=== PATIENT | male | born 1960 | race Caucasian/White ===

== ENCOUNTER 2022-12-24 09:04 | Inpatient (IN) ==
--- NOTE | 2022-12-24 09:12 | Emergency Department Note ---
History of Present Illness General Stated complaint: AB PAIN, CHEST DISCOMFORT Time Seen by Provider: 12/24/22 09:10 History of Present Illness This 62 year old male patient presents to the emergency department via EMS from [] for evaluation of abdominal pain and chest discomfort. Home Medications Medication Instructions Recorded Confirmed Type amoxicillin 875 mg-potassium 1 tab PO BID #20 tabs 12/12/22 Rx clavulanate 125 mg tablet Past Med/Surg History Medical History (Updated 12/12/22 @ 15:06 by Mango Pardo DO) Diabetes Social History Smoking Status: Never smoker Preferred Language: Pakistani Feels Safe at Home: Yes Discharge Plan Visit Data Stated Complaint: AB PAIN, CHEST DISCOMFORT ED Provider: Gabo Cooper ED Midlevel Provider: Marilin Ramos Prescriptions Prescriptions: No Action amoxicillin-pot clavulanate 875-125 mg tablet 1 tab PO BID Qty: 20 0RF Referrals Referrals: Umesh Leavitt DO [Primary Care Provider] -
[2022-12-24] MEDS ORDERED: PANTOprazole 40 MG in SYRINGE 0 ML IV ONE (09:13)
[2022-12-24] MEDS ORDERED: FAMOTIDINE 20MG IV PUSH 20 MG/5 ML SYR IV STA (09:13)
--- NOTE | 2022-12-24 09:29 | Emergency Department Note ---
Impression & Plan Atrial flutter with rapid ventricular response, Abnormal EKG, Anemia, Acute GI bleeding ED Provider Note NAME: ALEX [id number] RODRIGUEZ AGE: 62 SEX: M : 1960 ARRIVES VIA: Ambulance INFORMANT: Patient, EMS personnel ED PROVIDER(S): Ryan Ramirez DO CHIEF COMPLAINT: Weakness HPI: The patient is a 62-year-old male who currently resides at the [facility] in [place] who presented to the emergency department for an evaluation of gen eralized weakness. The patient apparently is been having problems with constipation and bowel problems for the last few weeks. He has been in the [facility] for at least the last 7 days. He was seen at [facility] last week although it is unclear exactly why he was seen at that facility. The patient himself states he has no abdominal pain or chest pain. He denies having any recent trauma. He does complain of having issues with dark stool. He denies any rectal bleeding. He denies having any cough or hemoptysis. He denies having any fever. The patient was sent to the emergency department today when his symptoms worsened at the [facility]. He started having orthostatic hypotension and had an EKG which appeared to be consistent with an acute LA. For this reason he was sent to the emergency department for further evaluation. The patient denies having any history of atrial fibrillation. He states he feels that his medications are being rejected by his body and this is why he is feeling so bad. The patient's history was obtained using the modern and contemporary art curator line. Patient did receive IV normal saline and aspirin by the prehospital personnel prior to arrival. ROS: See above HPI for pertinent positives & negatives. A total of 10 systems reviewed and were otherwise negative. PAST MEDICAL HISTORY: See Below PAST SURGICAL HISTORY: See Below FAMILY HISTORY: See Below SOCIAL HISTORY: See Below HOME MEDICATIONS: See Below ALLERGIES: See Below VITALS: See Below PHYSICAL EXAMINATION: GENERAL: Patient is awake alert in no acute distress patient is resting comfortably and showing no signs of anxiety EYES: The conjunctivae are pale. The pupils are round and reactive. EARS, NOSE, MOUTH AND THROAT: The nose is without any evidence of any deformity. Mucous membranes are moist. Tongue is midline. NECK: The neck is nontender and supple. RESPIRATORY: Normal respiratory effort is noted there is no evidence of wheezing rhonchi or rales CARDIOVASCULAR: Tachycardic and regular heart sounds were noted to auscultation. There is no definite murmur. GASTROINTESTINAL: The abdomen is soft. Abdomen is nontender. Rectal exam revealed brown stool which was strongly heme positive. MUSCULOSKELETAL/EXTREMITIES: There is no evidence of gross deformity full range of motion is noted in the hips and shoulders. SKIN: Venous stasis changes were noted. There is no significant pedal edema. Skin was warm and dry. NEUROLOGIC: Patient is awake alert and oriented x3. MEDICAL DECISION MAKING: The patient is a 62-year-old male who presented to the emergency department for an evaluation of orthostatic hypotension. The patient's been in the infirmary at the [facility] for many days. Today he was complaining of other discomfort and had an EKG which was very abnormal. The patient was referred to the emergency department for further evaluation. The patient does not have a history of atrial flutter or atrial fibrillation to my knowledge. The patient was treated with IV fluids in the emergency department but started to have some degree of pulmonary edema. He was then placed on a Cardizem drip. Patient was having episodes of hypotension so it was difficult to manage his dysrhythmia. The patient initially was thought to be heart alert but given his other underlying findings I do not feel that this is consistent with an acute LA. He is at ongoing symptoms for greater than 24 hours and his troponin is negative. His EKG is suggestive of underlying ischemia but I think this could be rate related. He may also have a GI bleed. So blood thinners may be contraindicated at this time. The patient was evaluated by the [facility] hospitalist in the emergency department. I discussed the patient's condition with them. I also discussed the patient's condition with the religious education coordinator as well as the [facility] net wpf developer. The patient requires further efforts to control his rhythm. I feel this will help. He was also ordered IV digoxin in the emergency department. The patient was also treated with proton pump inhibitor and H2 jose alfredo given the presence of a GI bleed. Triage Nursing notes reviewed. Prior medical records reviewed. The old records from his visit at [facility] were ordered. Vital Signs: reviewed and remarkable for hypotension and tachycardia. Differential diagnosis: Infection, dehydration, metabolic abnormality, hypo/hyperglycemia, electrolyte disturbance, anemia, hypoxia, cardiac sources, intracerebral event, toxicologic, neurologic, as well as other pathologies. ER treatment provided: See below Diagnostics interpreted by me: ECG: EKG was obtained in the emergency department. My interpretation is narrow complex tachycardia at [address] segment elevations were noted especially in the inferior and low lateral leads. This appears to be consistent with an acute ischemic episode. The underlying rhythm could be SVT versus rapid A-fib. It could also represent atrial flutter. No previous tracing was available. Prehospital EKG was evaluated in the emergency department. My interpretation is narrow complex tachycardia 159 bpm. There is no PVCs noted. There was persistence of the ST segment elevations in the inferior and lateral leads. This appears worsened compared to the tracing he received in the emergency department. An EKG that was obtained at [facility] was also evaluated. My interpretation is narrow complex tachycardia at 158 bpm. There were no PVCs. Persistence of the previously noted ST segment elevation was also appreciated. An EKG was found after the patient's old records from [place] arrived. The patient was in normal sinus rhythm with no acute ST segment changes. He had no dysrhythmia noted. This was from an EKG on December 07, 2022 Cardiac Monitoring: An order was placed for continuous cardiac monitoring. The monitor shows a rate of 157 bpm with atrial flutter. Laboratory studies: As stated above and show below. Imaging studies: See below. Radiographic imaging was reviewed by myself Consultation(s): I discussed this case with Dr. Lemus who is on-call for interventional cardiol ogy was notified about the patient prior to his arrival. Given the unclear presentation as well as the patient's lack of any chest discomfort at this time I would prefer to do a work-up in the emergency department prior to having the patient taken to the [facility]. I discussed this case with Dr. Stephenson who is on-call for [facility] cardiology. I discussed this case with Dr. Roach who is on-call for the [facility] hospitalist group. ED COURSE: Procedures: none Critical Care: I have personally spent greater than 60 minutes of critical care time in the direct management of this patient. This includes bedside care, interpretation of diagnostic studies, and testing, discussion with consultants, patient, and family members, and other required patient management activities. This 60 minut es is in excess of all separately billable procedures. Past Med/Surg History Medical History (Updated 12/24/22 @ 11:40 by Ryan Ramirez DO) Diabetes Glaucoma Hyperlipidemia Hypertension Latent tuberculosis Social History Smoking Status: Never smoker Preferred Language: Romanian Communication Ability: applications support analyst Required: Yes Beliefs That Will Affect Care: Anabaptism Current Living Situation: Other Feels Safe at Home: Yes Assistive Devices: None Allergies Allergies Allergy/AdvReac Type Severity Reaction Status Date / Time No Known Allergies Allergy Unverified 12/24/22 13:36 Home Meds Previous Rx's Medication Instructions Recorded amoxicillin 875 mg-potassium 1 tab PO BID #20 tabs 12/12/22 clavulanate 125 mg tablet Results & Data (ED) Vital Signs Vital Signs - 24 hr 12/24/22 09:11 12/24/22 08:43 12/24/22 08:43 Pulse Rate 158 H 158 H 157 H Pulse Rate [Apical] Respiratory Rate 20 20 Respiratory Effort / Characteristics Non-Labored Spontaneous Respiratory Depth Normal Respiratory Pattern Regular Blood Pressure 122/83 Blood Pressure [Right Arm] Blood Pressure Mean 96 Blood Pressure Mean [Right Arm] Blood Pressure Position Sitting Blood Pressure Position [Right Arm] Pulse Oximetry 98 98 Oxygen Delivery Method Nasal Cannula Nasal Cannula Oxygen Flow Rate 2 2 Sepsis Recent Fever Within 48 Hours No Sepsis New/Unexplained Change in Mental Status N/A Sepsis Action Taken by Nursing No Action Required 12/24/22 09:13 12/24/22 09:40 12/24/22 09:43 Pulse Rate 157 H Pulse Rate [Apical] 74 157 H Respiratory Rate 20 18 18 Respiratory Effort / Characteristics Non-Labored Spontaneous Non-Labored Spontaneous Respiratory Depth Normal Normal Respiratory Pattern Regular Regular Blood Pressure Blood Pressure [Right Arm] 98/66 L 96/68 L Blood Pressure Mean Blood Pressure Mean [Right Arm] 76 77 Blood Pressure Position Blood Pressure Position [Right Arm] Sitting Sitting Pulse Oximetry 88 L 96 97 Oxygen Delivery Method Room Air Nasal Cannula Nasal Cannula Oxygen Flow Rate 2 2 Sepsis Recent Fever Within 48 Hours Sepsis New/Unexplained Change in Mental Status Sepsis Action Taken by Nursing 12/24/22 09:15 12/24/22 09:22 12/24/22 09:30 Pulse Rate 158 H 157 H 156 H Pulse Rate [Apical] Respiratory Rate 19 19 19 Respiratory Effort / Characteristics Respiratory Depth Respiratory Pattern Blood Pressure 88/60 L 122/83 98/66 L Blood Pressure [Right Arm] Blood Pressure Mean 69 96 76 Blood Pressure Mean [Right Arm] Blood Pressure Position Blood Pressure Position [Right Arm] Pulse Oximetry 97 97 97 Oxygen Delivery Method Nasal Cannula Nasal Cannula Nasal Cannula Oxygen Flow Rate 2 2 2 Sepsis Recent Fever Within 48 Hours Sepsis New/Unexplained Change in Mental Status Sepsis Action Taken by Nursing 12/24/22 09:44 12/24/22 09:45 12/24/22 10:07 Pulse Rate 157 H 156 H 155 H Pulse Rate [Apical] Respiratory Rate 17 16 18 Respiratory Effort / Characteristics Respiratory Depth Respiratory Pattern Blood Pressure 96/68 L 97/66 L 93/71 L Blood Pressure [Right Arm] Blood Pressure Mean 77 76 78 Blood Pressure Mean [Right Arm] Blood Pressure Position Blood Pressure Position [Right Arm] Pulse Oximetry 97 97 98 Oxygen Delivery Method Nasal Cannula Nasal Cannula Nasal Cannula Oxygen Flow Rate 2 2 2 Sepsis Recent Fever Within 48 Hours Sepsis New/Unexplained Change in Mental Status Sepsis Action Taken by Nursing 12/24/22 10:15 12/24/22 10:25 12/24/22 10:30 Pulse Rate 155 H 155 H 155 H Pulse Rate [Apical] Respiratory Rate 17 18 18 Respiratory Effort / Characteristics Respiratory Depth Respiratory Pattern Blood Pressure 94/66 L 90/62 L 96/62 L Blood Pressure [Right Arm] Blood Pressure Mean 75 71 73 Blood Pressure Mean [Right Arm] Blood Pressure Position Blood Pressure Position [Right Arm] Pulse Oximetry 99 100 100 Oxygen Delivery Method Nasal Cannula Nasal Cannula Nasal Cannula Oxygen Flow Rate 2 2 2 Sepsis Recent Fever Within 48 Hours Sepsis New/Unexplained Change in Mental Status Sepsis Action Taken by Nursing 12/24/22 10:35 Pulse Rate 154 H Pulse Rate [Apical] Respiratory Rate 18 Respiratory Effort / Characteristics Respiratory Depth Respiratory Pattern Blood Pressure 96/67 L Blood Pressure [Right Arm] Blood Pressure Mean 76 Blood Pressure Mean [Right Arm] Blood Pressure Position Blood Pressure Position [Right Arm] Pulse Oximetry 100 Oxygen Delivery Method Nasal Cannula Oxygen Flow Rate 2 Sepsis Recent Fever Within 48 Hours Sepsis New/Unexplained Change in Mental Status Sepsis Action Taken by Detention Medications Current Medication List: was personally reviewed by me Laboratory Data Attestation: I reviewed the patient's lab results. 12/24/22 09:12 12/24/22 09:12 Lab Results 12/24/22 12/24/22 12/24/22 Range/Units 09:12 09:12 09:12 WBC 8.26 (4.8-10.8) K/ul RBC 3.66 L (4.70-6.10) M/uL Hgb 10.0 L (14.0-18.0) g/dl POC Hgb (14.0-18.0) g/dl Hct 28.9 L (42.0-52.0) % POC Hct (42-52) % MCV 79.0 L (80.0-100.0) fL MCH 27.3 (25.0-34.0) pg MCHC 34.6 (32.0-36.0) g/dL RDW Std Deviation 32.9 L (36.4-46.3) fL RDW Coeff of Мария 11.4 L (11.5-14.5) % Plt Count 373 (130-400) K/uL MPV 9.8 (9.4-12.4) fL Immature Gran % (Auto) 0.2 % Neut % (Auto) 67.9 % Lymph % (Auto) 19.2 % [place] % (Auto) 11.6 % Eos % (Auto) 0.7 % Baso % (Auto) 0.4 % Neut # (Auto) 5.60 (1.40-6.50) K/uL Lymph # (Auto) 1.59 (1.2-3.4) K/uL [place] # (Auto) 0.96 H (0.11-0.59) K/uL Eos # (Auto) 0.06 (0-0.50) K/uL Baso # (Auto) 0.03 (0-0.2) K/uL Immature Gran # (Auto) 0.02 (0.01-0.20) K/uL PT Cancelled INR Cancelled APTT Cancelled PTT Ratio Cancelled POC Sodium (135-144) mmol/L Sodium 124 L (136-145) mmol/L POC Potassium (3.3-5.0) mmol/L Potassium 4.7 (3.5-5.1) mmol/L POC Chloride (101-112) mmol/L Chloride 91 L (98-107) mmol/L Carbon Dioxide 27 (21-32) mmol/L POC Total CO2 (24-31) mmol/L Anion Gap 6 (3-11) POC Anion Gap (16-25) mmol/L POC BUN (7-18) mg/dl BUN 27 H (6-23) mg/dl Creatinine 1.39 (0.6-1.4) mg/dl POC Creatinine (0.6-1.3) mg/dl Est Cr Clr Drug Dosing Not Reportable Est GFR ( Amer) 62.9 ml/min Est GFR (Non-Af Amer) 54.3 ml/min BUN/Creatinine Ratio 19.4 (10-20) Glucose 105 H (70-99(Fasting)) mg/dl POC Glucose (other) (70-99) mg/dl Osmolality (280-300) mOsm/kg Lactate (0.4-2.0) mmol/L Calcium 9.0 (8.5-10.1) mg/dl POC Ioniz Calcium [place] (1.12-1.32) mmol/l Magnesium 1.9 (1.7-2.4) mg/dl Total Bilirubin 0.7 (0.2-1.0) mg/dl AST 16 (13-39) U/L ALT 16 (7-52) U/L Alkaline Phosphatase 99 (34-104) U/L Troponin I High Sens 19.8 (0-20) pg/ml Total Protein 7.2 (6.0-8.3) gm/dl Albumin 3.4 (3.4-5.0) gm/dl Globulin 3.8 (2.5-4.0) gm/dl Albumin/Globulin Ratio 0.9 (0.9-2) Lipase 8 L (11-82) U/L TSH (0.300-4.500) uIu/ml SARS-CoV-2, RNA, NAAT (NEGATIVE) Blood Type Antibody Screen 12/24/22 12/24/22 12/24/22 Range/Units 09:12 09:12 09:12 WBC (4.8-10.8) K/ul RBC (4.70-6.10) M/uL Hgb (14.0-18.0) g/dl POC Hgb (14.0-18.0) g/dl Hct (42.0-52.0) % POC Hct (42-52) % MCV (80.0-100.0) fL MCH (25.0-34.0) pg MCHC (32.0-36.0) g/dL RDW Std Deviation (36.4-46.3) fL RDW Coeff of Мария (11.5-14.5) % Plt Count (130-400) K/uL MPV (9.4-12.4) fL Immature Gran % (Auto) % Neut % (Auto) % Lymph % (Auto) % [place] % (Auto) % Eos % (Auto) % Baso % (Auto) % Neut # (Auto) (1.40-6.50) K/uL Lymph # (Auto) (1.2-3.4) K/uL [place] # (Auto) (0.11-0.59) K/uL Eos # (Auto) (0-0.50) K/uL Baso # (Auto) (0-0.2) K/uL Immature Gran # (Auto) (0.01-0.20) K/uL PT INR APTT PTT Ratio POC Sodium (135-144) mmol/L Sodium (136-145) mmol/L POC Potassium (3.3-5.0) mmol/L Potassium (3.5-5.1) mmol/L POC Chloride (101-112) mmol/L Chloride (98-107) mmol/L Carbon Dioxide (21-32) mmol/L POC Total CO2 (24-31) mmol/L Anion Gap (3-11) POC Anion Gap (16-25) mmol/L POC BUN (7-18) mg/dl BUN (6-23) mg/dl Creatinine (0.6-1.4) mg/dl POC Creatinine (0.6-1.3) mg/dl Est Cr Clr Drug Dosing Est GFR ( Amer) ml/min Est GFR (Non-Af Amer) ml/min BUN/Creatinine Ratio (10-20) Glucose (70-99(Fasting)) mg/dl POC Glucose (other) (70-99) mg/dl Osmolality 269 L (280-300) mOsm/kg Lactate (0.4-2.0) mmol/L Calcium (8.5-10.1) mg/dl POC Ioniz Calcium [place] (1.12-1.32) mmol/l Magnesium (1.7-2.4) mg/dl Total Bilirubin (0.2-1.0) mg/dl AST (13-39) U/L ALT (7-52) U/L Alkaline Phosphatase (34-104) U/L Troponin I High Sens (0-20) pg/ml Total Protein (6.0-8.3) gm/dl Albumin (3.4-5.0) gm/dl Globulin (2.5-4.0) gm/dl Albumin/Globulin Ratio (0.9-2) Lipase (11-82) U/L TSH 1.990 (0.300-4.500) uIu/ml SARS-CoV-2, RNA, NAAT NEGATIVE (NEGATIVE) Blood Type Antibody Screen 12/24/22 12/24/22 12/24/22 Range/Units 09:27 09:27 09:30 WBC (4.8-10.8) K/ul RBC (4.70-6.10) M/uL Hgb (14.0-18.0) g/dl POC Hgb 9.5 L (14.0-18.0) g/dl Hct (42.0-52.0) % POC Hct 28 L (42-52) % MCV (80.0-100.0) fL MCH (25.0-34.0) pg MCHC (32.0-36.0) g/dL RDW Std Deviation (36.4-46.3) fL RDW Coeff of Мария (11.5-14.5) % Plt Count (130-400) K/uL MPV (9.4-12.4) fL Immature Gran % (Auto) % Neut % (Auto) % Lymph % (Auto) % [place] % (Auto) % Eos % (Auto) % Baso % (Auto) % Neut # (Auto) (1.40-6.50) K/uL Lymph # (Auto) (1.2-3.4) K/uL [place] # (Auto) (0.11-0.59) K/uL Eos # (Auto) (0-0.50) K/uL Baso # (Auto) (0-0.2) K/uL Immature Gran # (Auto) (0.01-0.20) K/uL PT INR APTT PTT Ratio POC Sodium 139 (135-144) mmol/L Sodium (136-145) mmol/L POC Potassium 4.3 (3.3-5.0) mmol/L Potassium (3.5-5.1) mmol/L POC Chloride 92 L (101-112) mmol/L Chloride (98-107) mmol/L Carbon Dioxide (21-32) mmol/L POC Total CO2 23 L (24-31) mmol/L Anion Gap (3-11) POC Anion Gap 29.0 H (16-25) mmol/L POC BUN 23 H (7-18) mg/dl BUN (6-23) mg/dl Creatinine (0.6-1.4) mg/dl POC Creatinine 1.4 H (0.6-1.3) mg/dl Est Cr Clr Drug Dosing Est GFR ( Amer) ml/min Est GFR (Non-Af Amer) ml/min BUN/Creatinine Ratio (10-20) Glucose (70-99(Fasting)) mg/dl POC Glucose (other) 93 (70-99) mg/dl Osmolality (280-300) mOsm/kg Lactate 1.0 (0.4-2.0) mmol/L Calcium (8.5-10.1) mg/dl POC Ioniz Calcium [place] 1.07 L (1.12-1.32) mmol/l Magnesium (1.7-2.4) mg/dl Total Bilirubin (0.2-1.0) mg/dl AST (13-39) U/L ALT (7-52) U/L Alkaline Phosphatase (34-104) U/L Troponin I High Sens (0-20) pg/ml Total Protein (6.0-8.3) gm/dl Albumin (3.4-5.0) gm/dl Globulin (2.5-4.0) gm/dl Albumin/Globulin Ratio (0.9-2) Lipase (11-82) U/L TSH (0.300-4.500) uIu/ml SARS-CoV-2, RNA, NAAT (NEGATIVE) Blood Type O Positive Antibody Screen NEGATIVE Administered Medications Diltiazem HCl 125 mg/ Dextrose 125 mls @ 15 mls/hr IV .Q8H20M [facility]; Protocol Stop: 01/23/23 09:44 Last Titration: 12/24/22 12:07 Dose: 15 mg/hr, 15 mls/hr Documented By: GREGG Co-signed By: GUERO Titration: 02/13/23 11:45 Dose: 10 mg/hr, 10 mls/hr Documented By: GREGG Co-signed By: DAA Titration: 12/24/22 10:33 Dose: 5 mg/hr, 5 mls/hr Documented By: PATTY Co-signed By: SEA Titration: 12/24/22 10:26 Dose: 0 mg/hr, 0 mls/hr Documented By: PATTY Co-signed By: SEA Titration: 12/24/22 10:20 Dose: 10 mg/hr, 10 mls/hr Documented By: PATTY Co-signed By: NMS Admin: 12/24/22 09:49 Dose: 5 mg/hr, 5 mls/hr Documented By: PATTY Co-signed By: SEA Insulin Aspart (Insulin Aspart Per Unit) 0 units SC ACHS ZULEMA Stop: 01/23/23 11:40 Last Admin: 12/24/22 11:52 Dose: Not Given Documented By: GREGG Discontinued Medications Adenosine (Adenosine Iv Soln 3 Mg/Ml 2 Ml Vial) 6 mg IV NOW STA Stop: 12/24/22 09:33 Last Admin: 12/24/22 09:39 Dose: 6 mg Documented By: PATTY Pantoprazole Sodium 40 mg/ (Syringe) 10 mls @ 5 mls/min IV NOW ONE Stop: 12/24/22 09:14 Last Admin: 12/24/22 09:36 Dose: 5 mls/min Documented By: PATTY Famotidine (Pepcid 20mg Iv Push) 20 mg in 5 mls @ 2.5 mls/min IV NOW STA Stop: 12/24/22 09:14 Last Admin: 12/24/22 09:21 Dose: 2.5 mls/min Documented By: PATTY Sodium Chloride (Nss 1000ml) 500 mls @ 999 mls/hr IV .Q31M ONE Stop: 12/24/22 10:02 Last Infusion: 12/24/22 10:14 Dose: 0 mls/hr Documented By: Admin: 12/24/22 09:36 Dose: 999 mls/hr Documented By: PATTY Sodium Chloride (Nss) 500 mls @ 999 mls/hr IV .Q31M ONE Stop: 12/24/22 10:44 Last Infusion: 12/24/22 10:59 Dose: 0 mls/hr Documented By: Admin: 12/24/22 10:21 Dose: 999 mls/hr Documented By: PATTY Digoxin 250 mcg/ Syringe 10 mls @ 2 mls/min IV NOW STA Stop: 12/24/22 10:38 Last Admin: 12/24/22 11:20 Dose: 2 mls/min Documented By: KORY Magnesium Sulfate/Dextrose (Magnesium Sulfate / D5w) 1 gm in 100 mls @ 100 mls/hr IV NOW STA Stop: 12/24/22 11:38 Last Infusion: 12/24/22 13:00 Dose: 0 mls/hr Documented By: Admin: 12/24/22 11:49 Dose: 100 mls/hr Documented By: GREGG Lactated Ringer's (Lr) 1,000 mls @ 999 mls/hr IV .Q1H1M ONE Stop: 12/24/22 12:10 Last Infusion: 12/24/22 12:27 Dose: 0 mls/hr Documented By: Admin: 12/24/22 11:20 Dose: 999 mls/hr Documented By: KORY Miscellaneous (Stat Iv Infusion Titration Per Protocol) 1 each N/A NOW STA Stop: 12/24/22 09:42 Last Admin: 12/24/22 09:50 Dose: Not Given Documented By: PATTY Imaging Data Radiologist's Impression: KUB X-Ray 12/24/22 09:13 KUB HISTORY: Acute generalized abdominal pain pain COMPARISON: Chest radiograph of same day FINDINGS: Nonobstructive bowel gas pattern. Mild colonic fecal retention. Renal shadows are obscured by bowel gas. Arterial calcifications. No renal calculi. No ureteral calculi. No pneumoperitoneum or pneumatosis. No fracture. IMPRESSION: Nonobstructive bowel gas pattern. ACT 112: Negative or not required by law. The above report was generated using voice recognition software. It may contain grammatical, syntax or spelling errors. Electronically signed by: Sanjiv Pitts M.D. 12/24/2022 10:17 AM Chest X-Ray 12/24/22 09:14 XR chest 1V not portable CLINICAL HISTORY: pain TECHNIQUE: Single frontal radiograph of the chest was obtained. Comparison: None available at the time of this dictation. FINDINGS: No lines and tubes are seen. Cardiomegaly is noted. The lungs are clear. No evidence of pleural effusion or pneumothorax. IMPRESSION: No acute chest disease. ACT 112: Negative or not required by law. Electronically signed by: Abdi Cobb M.D. 12/24/2022 10:15 AM Discharge Plan Visit Data Chief Complaint: Abdominal Pain Stated Complaint: AB PAIN, CHEST DISCOMFORT ED Provider: Ryan Ramirez Discharge Problem: Atrial flutter with rapid ventricular response, Abnormal EKG, Anemia, Acute GI bleeding Patient Disposition: Admitted As Inpatient Discharge Instructions Interventions: ED Discharge Assessment Last Done: 12/24/22 11:40 : Anemia Qualifiers: Anemia type: unspecified type Qualified Code(s): D64.9 - Anemia, unspecified
[2022-12-24 09:30] LABS: Basophils # (auto) 0.03 K/uL (0-0.2); Basophils % (auto) 0.4 %; Eosinophils # (auto) 0.06 K/uL (0-0.50); Eosinophils % (auto) 0.7 %; Hematocrit (blood only) 28.9 % (42.0-52.0); Immature Granulocytes # (auto) 0.02 K/uL (0.01-0.20); Immature Granulocytes % (auto) 0.2 %; Lymphocytes # (auto) 1.59 K/uL (1.2-3.4); Lymphocytes % (auto) 19.2 %; Mean Corpuscular Hemoglobin 27.3 pg (25.0-34.0); Mean Corpuscular Hgb Conc 34.6 g/dL (32.0-36.0); Mean Platelet Volume 9.8 fL (9.4-12.4); Monocytes # (auto) 0.96 K/uL (0.11-0.59); Monocytes % (auto) 11.6 %; Neutrophils % (auto) 67.9 %; Platelet Count 373 K/uL (130-400); RDW Coefficient of Variation 11.4 % (11.5-14.5); RDW Standard Deviation 32.9 fL (36.4-46.3); Red Blood Count 3.66 M/uL (4.70-6.10); White Blood Count 8.26 K/ul (4.8-10.8)
[2022-12-24] MEDS ORDERED: ADENOSINE IV SOLN 3 MG/ML 2 ML VIAL IV STA (09:32)
[2022-12-24] MEDS ORDERED: SODIUM CHLORIDE 0.9% 1000ML 500 ML IV ONE (09:32)
[2022-12-24] MEDS ORDERED: STAT IV Infusion **Titration per Protocol STA (09:41)
[2022-12-24 09:43] LABS: iSTAT Creatinine 1.4 mg/dl (0.6-1.3); iSTAT Hemoglobin 9.5 g/dl (14.0-18.0); iSTAT Ionized Calcium 1.07 mmol/l (1.12-1.32); iSTAT Potassium 4.3 mmol/L (3.3-5.0)
[2022-12-24 09:47] LABS: Alanine Aminotransferase 16 U/L (7-52); Albumin Globulin Ratio 0.9 (0.9-2); Albumin Level 3.4 gm/dl (3.4-5.0); Alkaline Phosphatase 99 U/L (34-104); Anion Gap 6 (3-11); Aspartate Aminotransferase 16 U/L (13-39); BUN Creatinine Ratio 19.4 (10-20); Bilirubin,Total 0.7 mg/dl (0.2-1.0); Blood Urea Nitrogen 27 mg/dl (6-23); Carbon Dioxide 27 mmol/L (21-32); Chloride 91 mmol/L (98-107); Est GFR (African American) 62.9 ml/min; Est GFR (Non-African American) 54.3 ml/min; Globulin 3.8 gm/dl (2.5-4.0); Glucose 105 mg/dl (70-99(Fasting)); Lipase 8 U/L (11-82); Magnesium 1.9 mg/dl (1.7-2.4); Potassium 4.7 mmol/L (3.5-5.1); Sodium 124 mmol/L (136-145); Total Protein 7.2 gm/dl (6.0-8.3)
[2022-12-24] MEDS: dilTIAZem HCL 125 MG in DEXTROSE 5% 100 ML IV SCH ×2 (09:49→19:39)
[2022-12-24 09:53] LABS: Troponin I High Sensitivity 19.8 pg/ml (0-20)
[2022-12-24] MEDS ORDERED: SODIUM CHLORIDE 0.9% 500 ML IV ONE (10:14)
--- NOTE | 2022-12-24 10:17 | XRay Report ---
XR chest 1V not portable CLINICAL HISTORY: pain TECHNIQUE: Single frontal radiograph of the chest was obtained. Comparison: None available at the time of this dictation. FINDINGS: No lines and tubes are seen. Cardiomegaly is noted. The lungs are clear. No evidence of pleural effus ion or pneumothorax. IMPRESSION: No acute chest disease. ACT 112: Negative or not required by law. Electronically signed by: Abdi Cobb M.D. 12/24/2022 10:15 AM
--- NOTE | 2022-12-24 10:18 | XRay Report ---
KUB HISTORY: Acute generalized abdominal pain pain COMPARISON: Chest radiograph of same day FINDINGS: Nonobstructive bowel gas pattern. Mild colonic fecal retention. Renal shadows are obscured by bowel gas. Arterial calcifications. No renal calculi. No ureteral calculi. No pneumoperitoneum or pneumatosis. No fracture. IMPRESSION: Nonobstructive bowel gas pattern. ACT 112: Negative or not required by law. The above report was generated using voice recognition software. It may contain grammatical, syntax o r spelling errors. Electronically signed by: Sanjiv Pitts M.D. 12/24/2022 10:17 AM
--- NOTE | 2022-12-24 10:24 | History & Physical Report ---
Date of Service December 24, 2022 Assessment & Plan (1) Atrial flutter with rapid ventricular response: Plan: Clear flutter waves after adenosine push Does not appear to be in heart failure from this Diltiazem 10mg/hr caused mild hypotension although volume status not fully supported after only Will add digoxin 250 mcg IV and up titrate diltiazem prior to switching to rhythm control with amiodarone as BP only dropping while on diltiazem with inadequate fluid resuscitation Additional LR 1L bolus now K > 4 Mg 1.9. Mg sulfate 1g IV ordered Keep cardioversion pads in placed in case of need of synchronized cardioversion TSH 1.99 TTE [id number], will defer heparin IV drip on admission due to possibility of acute GI bleed consult cardiology (2) Abnormal EKG: Plan: No chest pain or shortness of breath to suggest ACS (3) Microcytic anemia: Plan: Fecal occult blood positive in the emergency room Famotidine IV 20 mg and pantoprazole IV 40 mg given in the emergency room Continue pantoprazole 40 mg IV twice daily We will consult gastroenterology depending on clinical course (4) Dysphagia: Plan: With solid foods Recommend EGD inpatient or outpatient depending on clinical course (5) Diabetes: Plan: HbA1c with a.m. labs Unclear exact insulin dosing but appears to be on 12 units twice daily NovoLog: --Goal BSG Range: Low 110 mg/dL, High 140 mg/dL --Correction Factor: 45 mg/dL/unit --Carbohydrate ratio = 15 g/unit --BSGs ACHS if eating, q6h if npo (6) Hypertension: Plan: Stop lisinopril. Reportedly not taking this for the last week due to low blood pressure - ? GI bleed Plan VTE Prophylaxis - chemical prophylaxis deferred due to possible acute GI bleed Diet - n.p.o. Disposition - admit to PCU Admission and Anticipated Discharge Date Admission Date: December 24, 2022 History of Present Illness Chief Complaint: Dizziness Primary Care Provider: DO Jamie Hodge is a 62-year-old male who presents to the ER with abdominal pain and possible acute ME. History and exam was performed with the use of an chlorine cells operator via iPad ([employer]). The patient reports to me his abdominal pain is really "colon" pain which he describes as when he has a bowel movement it is around his rectum and he believes this is from straining as he has not had a bowel movement for the last 5 days. He denies any nausea, vomiting, anterior abdominal pain, flank pain, bright red blood in stool, hematemesis. He does report black stool which was heme positive in the emergency room. He does note dysphagia although over an unclear time span with solids at the back of his throat but no problem with liquids. He denies any coughing or choking after eating. He reports having dizziness for many years although this is much worse in the last 3 weeks mainly on standing, but occasionally while lying down. He reports this was much worse today. He believes when he transferred presents his medication was coming from a different pharmacy and he is concerned about this. Outpatient EKG was obtained and concerning for atrial fibrillation/SVT or atrial flutter and meeting acute ST elevation criteria. Heart rate 150 bpm. He was given aspirin 324 mg p.o. at 8:10 AM and 700 mL bolus of normal saline prehospital. In the emergency room EKG confirmed a narrow complex tachycardia at 159 bpm. He was given adenosine 6 mg IV which showed underlying flutter waves and his heart rate immediately went back to around [address] arted on a diltiazem drip which caused mild hypotension and he is currently receiving a second 500 mL normal saline bolus when seen. He denies any current dizziness while lying down. No chest pain or shortness of breath. No current abdominal pain. He reports only having symptoms when he would sit or stand. Allergies Allergy/AdvReac Type Severity Reaction Status Date / Time No Known Allergies Allergy Unverified 12/24/22 13:36 Home Medications Medication Instructions Recorded Confirmed Type amoxicillin 875 mg-potassium 1 tab PO BID #20 tabs 12/12/22 Rx clavulanate 125 mg tablet Past Med/Surg History Medical History Diabetes Glaucoma Hyperlipidemia Hypertension Latent tuberculosis Social History Smoking Status: Never smoker Preferred Language: Greek Communication Ability: latvian Communication Tools: IPad and Language Line Director Quality Assurance Director Quality Assurance Required: Yes Beliefs That Will Affect Care: Lutheran Current Living Situation: Other Feels Safe at Home: Yes Assistive Devices: None Review of Systems Review of Systems: All systems reviewed & are unremarkable except as noted in HPI & below Physical Exam Constitutional: WD/WN, vitals as above Eyes: PERRL, conjunctivae normal, anicteric sclerae EOM intact bilaterally Respiratory: normal respiratory effort, lungs clear to auscultation Cardiovascular: Rate/Rhythm: regular rhythm and + tachycardic Heart Sounds: no murmur Extremities: normal capillary refill; no calf tenderness and no pedal edema Gastrointestinal (Abdomen): normal bowel sounds, soft, nontender, no hepatosplenomegaly Musculoskeletal: no cyanosis or clubbing, extremities motor strength 5/5 Skin: no rashes, warm and dry Neurologic: moves all extremities and awake; not confused Psychiatric: A+Ox3, euthymic affect Genitourinary: no CVA tenderness Results & Data Results & Data ([facility]) Vital Signs (Past 12 Hours) Vital Signs Pulse Pulse Resp BP BP Pulse Ox O2 Del Method 12/24/22 10:07 155 H 18 93/71 L 98 Nasal Cannula 12/24/22 09:45 156 H 16 97/66 L 97 Nasal Cannula 12/24/22 09:44 157 H 17 96/68 L 97 Nasal Cannula 12/24/22 09:30 156 H 19 98/66 L 97 Nasal Cannula 12/24/22 09:22 157 H 19 122/83 97 Nasal Cannula 12/24/22 09:15 158 H 19 88/60 L 97 Nasal Cannula 12/24/22 09:43 157 H 18 96/68 L 97 Nasal Cannula 12/24/22 09:40 74 18 98/66 L 96 Nasal Cannula 12/24/22 09:13 157 H 20 88 L Room Air 12/24/22 08:43 157 H 20 98 Nasal Cannula 12/24/22 08:43 158 H 20 122/83 98 Nasal Cannula 12/24/22 09:11 158 H O2 Flow Rate 12/24/22 10:07 2 12/24/22 09:45 2 12/24/22 09:44 2 12/24/22 09:30 2 12/24/22 09:22 2 12/24/22 09:15 2 12/24/22 09:43 2 12/24/22 09:40 2 12/24/22 09:13 12/24/22 08:43 2 12/24/22 08:43 2 12/24/22 09:11 Laboratory Results Abnormal lab results 12/24/22 12/24/22 12/24/22 Range/Units 09:12 09:12 09:30 RBC 3.66 L (4.70-6.10) M/uL Hgb 10.0 L (14.0-18.0) g/dl POC Hgb 9.5 L (14.0-18.0) g/dl Hct 28.9 L (42.0-52.0) % POC Hct 28 L (42-52) % MCV 79.0 L (80.0-100.0) fL RDW Std Deviation 32.9 L (36.4-46.3) fL RDW Coeff of Мария 11.4 L (11.5-14.5) % [place] # (Auto) 0.96 H (0.11-0.59) K/uL Sodium 124 L (136-145) mmol/L POC Chloride 92 L (101-112) mmol/L Chloride 91 L (98-107) mmol/L POC Total CO2 23 L (24-31) mmol/L POC Anion Gap 29.0 H (16-25) mmol/L POC BUN 23 H (7-18) mg/dl BUN 27 H (6-23) mg/dl POC Creatinine 1.4 H (0.6-1.3) mg/dl Glucose 105 H (70-99(Fasting)) mg/dl POC Ioniz Calcium [place] 1.07 L (1.12-1.32) mmol/l Lipase 8 L (11-82) U/L Diagnostic Findings XR chest 1V not portable CLINICAL HISTORY: pain TECHNIQUE: Single frontal radiograph of the chest was obtained. Comparison: None available at the time of this dictation. FINDINGS: No lines and tubes are seen. Cardiomegaly is noted. The lungs are clear. No evidence of pleural effusion or pneumothorax. IMPRESSION: No acute chest disease. Medications Administered ER medications given: Pantoprazole 40 mg IV Famotidine 20 mg IV Adenosine 6 mg IV Normal saline 500 mL bolus Normal saline 500 mL bolus ECG Indication: abdominal pain Rate (beats per minute): 159 Rhythm: other (Narrow complex regular tachycardia) Findings: + ST elevation (Inferior lateral) Code Status & VTE Plan Code Status Full VTE Prophylaxis Plan VTE Prophylaxis will be ordered: No Critical Care Time Critical Care Time: Yes Total Critical Care Time: 35 PG Care Time/CCT Total # of Minutes Spent Total Time Spent with Patient: Total time spent is greater than 50% in coordination of care (as documented) at patient's floor/unit and/or counseling patient: Critical Care Time: Yes Total Critical Care Time: 35 Coding Level of Care Code 03094 INT INP/OBS CARE 3/75MIN Diagnoses Atrial flutter with rapid ventricular response I48.92 Abnormal EKG R94.31 Microcytic anemia D50.9 Dysphagia R13.10 Diabetes E11.9 Hypertension I10 Additional Codes Critical Care Time - Critical Care Time: Yes ([id number])
[2022-12-24] MEDS ORDERED: DIGOXIN 250 MCG in SYRINGE 9 ML IV STA (10:34)
[2022-12-24] MEDS ORDERED: MAGNESIUM SULFATE / D5W 1 GM/100 ML BAG IV STA (10:39)
[2022-12-24] MEDS ORDERED: LACTATED RINGER'S 1,000 ML IV ONE (11:10)
[2022-12-24] MEDS ORDERED: GLUCOSE 10 TAB/TUBE PO PRN (11:41)
[2022-12-24] MEDS ORDERED: GLUCAGON FOR INJ 1 MG VIAL SQ PRN (11:41)
[2022-12-24] MEDS ORDERED: ACETAMINOPHEN 325 MG TAB PO PRN (11:41)
[2022-12-24] MEDS ORDERED: GLUCOSE 40% GEL 15 GM TUBE PO PRN (11:41)
[2022-12-24] MEDS ORDERED: DEXTROSE 50% 50 ML SYRINGE IV PRN (11:41)
[2022-12-24] MEDS: INSULIN ASPART PER UNIT SC SCH ×3 (11:52→21:24)
[2022-12-24 11:59] LABS: BUN Creatinine Ratio 20.7 (10-20); Calcium 8.1 mg/dl (8.5-10.1); Creatinine Clr Calc Pharmacy 66.4 ml/min; Est GFR (African American) 74.4 ml/min; Est GFR (Non-African American) 64.2 ml/min; Potassium 4.7 mmol/L (3.5-5.1)
[2022-12-24 12:05] LABS: Troponin I High Sensitivity 17.3 pg/ml (0-20)
[2022-12-24 12:13] LABS: INR 1.2 (0.9-1.1); Partial Thromboplastin Ratio 1.3; Prothrombin Time 12.7 Seconds (9.0-12.0)
[2022-12-24] MEDS ORDERED: SODIUM CHLORIDE 0.9% 1000ML 1,000 ML IV SCH (13:30)
[2022-12-24 17:35] LABS: Appearance Urine Clear (Clear); Bacteria Urine Automated Negative (Negative); Bilirubin Urine Negative (Negative); Blood Urine Negative (Negative); Color Urine Yellow; Epithelial Cell Urine Auto 0-5 /lpf (0-5); Glucose Urine UA 2+ (Negative); Ketones Urine Negative (Negative); Leukocyte Esterase Urine Negative (Negative); Nitrite Urine Negative (Negative); Protein Urine Trace (Negative); RBC Urine Automated 0-4 /hpf (0-4); Specific Gravity Urine 1.011 (1.000-1.030); Urobilinogen Urine Negative (Negative); pH Urine 5.5 (4.5-7.5)
[2022-12-24 17:50] LABS: Hemoglobin 9.2 g/dl (14.0-18.0); Mean Corpuscular Hemoglobin 27.2 pg (25.0-34.0); Mean Corpuscular Hgb Conc 34.1 g/dL (32.0-36.0); Mean Corpuscular Volume 79.9 fL (80.0-100.0); Mean Platelet Volume 9.9 fL (9.4-12.4); Platelet Count 356 K/uL (130-400); RDW Coefficient of Variation 11.5 % (11.5-14.5); RDW Standard Deviation 33.4 fL (36.4-46.3); Red Blood Count 3.38 M/uL (4.70-6.10); Reticulocyte % 1.5 % (0.5-2.0); Reticulocytes # 0.05 10^6/uL (0.02-0.10); White Blood Count 8.15 K/ul (4.8-10.8)
--- NOTE | 2022-12-24 17:54 | Cardiology Consultation ---
Date of Consultation December 24, 2022 Assessment & Plan (1) Atrial flutter with rapid ventricular response: (2) Pericardial effusion: (3) Hypotension: (4) Anemia: (5) Acute GI bleeding: (6) Dysphagia: Plan ASSESSMENT/PLAN: 1. Atrial flutter with rapid ventricular response: Discussed the diagnosis with him. Ideally would like to regain sinus rhythm but unable to anticoagulate now per primary service given heme-positive stool and anemia. Heart rate appeared to respond nicely to digoxin after not initially improving with diltiazem. Had more hypotension with diltiazem. IV fluids likely improved heart rate as well as he may have been hypovolemic given his reduced overall oral consumption given dysphagia. Will re-dose digoxin for further loading today. Can reduce diltiazem drip as able to allow for improved blood pressure. Recommend anticoagulation therapy when safe for possible cardioversion in the future. No ROSSI at this point given dysphagia and GI bleed, unless endoscopy performed and unremarkable. 2. Pericardial effusion: Discussed the diagnosis with him. No obvious tamponade physiology when reviewing echo. No urgent need for pericardiocentesis. Will continue to monitor and will repeat echo in the near future. Etiology uncertain. 3. Dysphagia: Has poor appetite and difficulty swallowing and was likely hypovolemic on presentation. Recommend further evaluation such as CT imaging or endoscopy as per primary hospitalist service. Consider GI consult. 4. Anemia/GI bleed: Heme-positive stool per records and ED physician. Recommend GI consult as ideally he should be on anticoagulation for stroke risk reduction when safe from a GI perspective. Also, to help regain sinus rhythm, transesophageal echo could be considered for cardioversion but given his GI complaints of dysphagia with heme-positive black stool, would want to ensure no significant esophageal pathology. 5. Hypotension: Likely multifactorial in the setting of probable hypokalemia, significant tachycardia in the setting of atrial flutter, and intravenous diltiazem. Blood pressure has improved. Diltiazem has been weaned somewhat and he has received intravenous fluids. 6. Disposition: Cardiology will continue to follow. Patient care discussed with Dr. Ramirez of the emergency department and also Dr. Roach of the primary hospitalist service. Care also discussed with nursing staff. Highly complex medical issues for which transesophageal echo and cardioversion were considered. Thank you for allowing me to participate in the care of your patient. Please call for any other questions or concerns. Sincerely, David Stephenson M.D. History of Present Illness Reason for Consultation: Atrial flutter Requesting Physician: Ramon Roach MD Attending Physician: Ramon Roach MD History of Present Illness Mr. Tinajero is a 62-year-old Citizen [place]-speaking gentleman with a history significant for diabetes, hypertension, and dyslipidemia. He was hospitalized on 12/24/2022 after presenting with what he describes as c olon pain. Because he is Citizen [place]-speaking, today's history was obtained with the help of a professional cut file clerk, Nona ([id number]). He is a poor historian in the sense that he was unable to provide many details and at times, his answers were not consistent and would contradict answers previously provided. He states that he has been having difficulty swallowing for some time, estimating perhaps up to 1 or 1 and half months. He is able to swallow milk and corn flakes in the morning and otherwise would not eat other meals. He states that his appetite has worsened. He is not sure if he is gaining or losing weight. When asked about his "colon" discomfort, he referred to his rectal area. He states he feels better after receiving a blue pill. He states that he has not had a bowel movement for 6 days but then stated that he had a very small difficult bowel movement just prior to our visit. Nursing staff reports a very large hard/formed stool. He notes that his stool has been black and apparently is heme positive as noted in the emergency department. He denies bright red blood per rectum. He thinks that he has had black stool for 2 or 3 months. In regards to his rectal pain, he felt terrible for 2 days but feels a little bit better now. On presentation, he was noted to be in atrial flutter with rapid ventricular response in the emergency department. He was given adenosine which unmasked his flutter waves in the emergency department. He was given diltiazem and became hypotensive with systolic blood pressure in the 80s and 90s. He was felt to be potentially hypovolemic and was given IV fluids. He remained mildly hypotensive but not overly symptomatic in regards to his rapid heart rate. Dr. Ramirez of the emergency department contacted me and we discussed via telephone. Digoxin recommended to hopefully spare his blood pressure as he was on a Dilt drip without any significant improvement in his heart rate. He has palpitations occasionally but none currently. He sometimes notes palpitations in the morning. He denies chest pain, shortness of breath, syncope, near-syncope, or edema. He states that he takes no medications at his current place of incarceration and does not plan on taking medications there until he returns to his home country. Upon further questioning, he admits that he takes insulin and other pill medication but does not recall the name of the pill. He had been on other medications in the past and states that they made him feel worse. He does not exercise. Review of systems: As above. Review of systems otherwise negative/unremarkable. Family history: Father had IA. Social history: Denies tobacco abuse. Has smoked marijuana. Occasional al cohol before incarceration. with 2 adult daughters (physician and the other in finance). He is from the [facility] [place]. Currently incarcerated at [facility]. Two guards were present at the bedside. Allergies Allergy/AdvReac Type Severity Reaction Status Date / Time No Known Allergies Allergy Unverified 12/24/22 13:36 Home Medications Medication Instructions Recorded Confirmed Type amoxicillin 875 mg-potassium 1 tab PO BID #20 tabs 12/12/22 Rx clavulanate 125 mg tablet Patient History Medical History Diabetes Glaucoma Hyperlipidemia Hypertension Latent tuberculosis Social History Smoking Status: Never smoker Preferred Language: Citizen [place] Communication Ability: kyrgyz Communication Tools: Language Line Hole Digger Hole Digger Required: Yes Beliefs That Will Affect Care: Scientologist Current Living Situation: Other Feels Safe at Home: Yes Assistive Devices: None Physical Exam Physical Exam: Gen.: No acute distress. Alert. HEENT: Anicteric sclera. Neck: No JVD. No bruits. Normal carotid upstrokes bilaterally. Cardiac: PMI was nondisplaced. No ventricular heave. Irregularly irregular. Normal S1-S2. No murmurs, rubs, or gallops. Pulmonary: Clear to auscultation bilaterally without wheezes, rales, or rhonchi. Abdomen: Soft, nontender, mild distension, with hyperactive bowel sounds. No bruits noted. Extremities: 2+ radial pulses bilaterally. 2+ posterior tibialis pulses bilaterally. No edema or cyanosis. Results & Data ([facility]) Vital Signs (Past 12 Hours) Vital Signs Temp Pulse Pulse Resp BP BP Pulse Ox 12/24/22 16:00 85 12/24/22 16:05 36.9 C 90 18 118/69 90 12/24/22 12:53 105 H 125/73 12/24/22 12:28 115 H 108/66 12/24/22 12:05 151 H 105/72 12/24/22 12:02 12/24/22 11:54 12/24/22 11:44 154 H 12/24/22 11:42 36.7 C 153 H 20 105/66 98 12/24/22 11:42 12/24/22 11:20 157 H 12/24/22 10:35 154 H 18 96/67 L 100 12/24/22 10:30 155 H 18 96/62 L 100 12/24/22 10:25 155 H 18 90/62 L 100 12/24/22 10:15 155 H 17 94/66 L 99 12/24/22 10:07 155 H 18 93/71 L 98 12/24/22 09:45 156 H 16 97/66 L 97 12/24/22 09:44 157 H 17 96/68 L 97 12/24/22 09:30 156 H 19 98/66 L 97 12/24/22 09:22 157 H 19 122/83 97 12/24/22 09:15 158 H 19 88/60 L 97 12/24/22 09:43 157 H 18 96/68 L 97 12/24/22 09:40 74 18 98/66 L 96 12/24/22 09:13 157 H 20 88 L 12/24/22 08:43 157 H 20 98 12/24/22 08:43 158 H 20 122/83 98 12/24/22 09:11 158 H Pulse Ox O2 Del Method O2 Del Method O2 Flow Rate O2 Flow Rate 12/24/22 16:00 12/24/22 16:05 Room Air 12/24/22 12:53 12/24/22 12:28 12/24/22 12:05 Nasal Cannula 2 12/24/22 12:02 Nasal Cannula 2 12/24/22 11:54 Nasal Cannula 2 12/24/22 11:44 02/13/23 11:42 Nasal Cannula 2 12/24/22 11:42 98 Nasal Cannula 2 12/24/22 11:20 12/24/22 10:35 Nasal Cannula 2 12/24/22 10:30 Nasal Cannula 2 12/24/22 10:25 Nasal Cannula 2 12/24/22 10:15 Nasal Cannula 2 12/24/22 10:07 Nasal Cannula 2 12/24/22 09:45 Nasal Cannula 2 12/24/22 09:44 Nasal Cannula 2 12/24/22 09:30 Nasal Cannula 2 12/24/22 09:22 Nasal Cannula 2 12/24/22 09:15 Nasal Cannula 2 12/24/22 09:43 Nasal Cannula 2 12/24/22 09:40 Nasal Cannula 2 12/24/22 09:13 Room Air 12/24/22 08:43 Nasal Cannula 2 12/24/22 08:43 Nasal Cannula 2 12/24/22 09:11 Intake & Output 12/22/22 12/23/22 12/24/22 12/25/22 06:59 06:59 06:59 06:59 Intake Total 2173.250 / 2173.250 Output Total Balance 2172.250 / 2172.250 Weight 192 lb 14.472 oz Laboratory Results Laboratory Results - last 24 hr 12/24/22 12/24/22 12/24/22 09:12 09:12 09:12 WBC 8.26 RBC 3.66 L Hgb 10.0 L POC Hgb Hct 28.9 L POC Hct MCV 79.0 L MCH 27.3 MCHC 34.6 RDW Std Deviation 32.9 L RDW Coeff of Мария 11.4 L Plt Count 373 MPV 9.8 Immature Gran % (Auto) 0.2 Neut % (Auto) 67.9 Lymph % (Auto) 19.2 [place] % (Auto) 11.6 Eos % (Auto) 0.7 Baso % (Auto) 0.4 Reticulocyte % (Auto) Neut # (Auto) 5.60 Lymph # (Auto) 1.59 [place] # (Auto) 0.96 H Eos # (Auto) 0.06 Baso # (Auto) 0.03 Reticulocyte # Immature Gran # (Auto) 0.02 ESR PT Cancelled INR Cancelled APTT Cancelled PTT Ratio Cancelled POC Sodium Sodium 124 L POC Potassium Potassium 4.7 POC Chloride Chloride 91 L Carbon Dioxide 27 POC Total CO2 Anion Gap 6 POC Anion Gap POC BUN BUN 27 H Creatinine 1.39 POC Creatinine Est Cr Clr Drug Dosing Not Reportable Est GFR ( Amer) 62.9 Est GFR (Non-Af Amer) 54.3 BUN/Creatinine Ratio 19.4 Glucose 105 H POC Glucose POC Glucose (other) Osmolality Lactate Calcium 9.0 POC Ioniz Calcium [place] Magnesium 1.9 Iron TIBC Unsaturated IBC Transferrin % Sat Ferritin Total Bilirubin 0.7 AST 16 ALT 16 Alkaline Phosphatase 99 Troponin I High Sens 19.8 C-Reactive Protein Total Protein 7.2 Albumin 3.4 Globulin 3.8 Albumin/Globulin Ratio 0.9 Lipase 8 L Vitamin B12 Folate TSH Urine Color Urine Appearance Urine pH Ur Specific [place] Urine Protein Urine Glucose (UA) Urine Ketones Urine Blood Urine Nitrite Urine Bilirubin Urine Urobilinogen Ur Leukocyte Esterase Urine WBC (Auto) Urine RBC (Auto) U Hyaline Cast (Auto) U Epithel Cells (Auto) Urine Bacteria (Auto) Urine Osmolality Ur Random Sodium Nasal Screen MRSA (PCR) SARS-CoV-2, RNA, NAAT Blood Type Antibody Screen 12/24/22 12/24/22 12/24/22 09:12 09:12 09:12 WBC RBC Hgb POC Hgb Hct POC Hct MCV MCH MCHC RDW Std Deviation RDW Coeff of Мария Plt Count MPV Immature Gran % (Auto) Neut % (Auto) Lymph % (Auto) [place] % (Auto) Eos % (Auto) Baso % (Auto) Reticulocyte % (Auto) Neut # (Auto) Lymph # (Auto) [place] # (Auto) Eos # (Auto) Baso # (Auto) Reticulocyte # Immature Gran # (Auto) ESR PT INR APTT PTT Ratio POC Sodium Sodium POC Potassium Potassium POC Chloride Chloride Carbon Dioxide POC Total CO2 Anion Gap POC Anion Gap POC BUN BUN Creatinine POC Creatinine Est Cr Clr Drug Dosing Est GFR ( Amer) Est GFR (Non-Af Amer) BUN/Creatinine Ratio Glucose POC Glucose POC Glucose (other) Osmolality 269 L Lactate Calcium POC Ioniz Calcium [place] Magnesium Iron TIBC Unsaturated IBC Transferrin % Sat Ferritin Total Bilirubin AST ALT Alkaline Phosphatase Troponin I High Sens C-Reactive Protein Total Protein Albumin Globulin Albumin/Globulin Ratio Lipase Vitamin B12 Folate TSH 1.990 Urine Color Urine Appearance Urine pH Ur Specific [place] Urine Protein Urine Glucose (UA) Urine Ketones Urine Blood Urine Nitrite Urine Bilirubin Urine Urobilinogen Ur Leukocyte Esterase Urine WBC (Auto) Urine RBC (Auto) U Hyaline Cast (Auto) U Epithel Cells (Auto) Urine Bacteria (Auto) Urine Osmolality Ur Random Sodium Nasal Screen MRSA (PCR) SARS-CoV-2, RNA, NAAT NEGATIVE Blood Type Antibody Screen 12/24/22 12/24/22 12/24/22 09:27 09:27 09:30 WBC RBC Hgb POC Hgb 9.5 L Hct POC Hct 28 L MCV MCH MCHC RDW Std Deviation RDW Coeff of Мария Plt Count MPV Immature Gran % (Auto) Neut % (Auto) Lymph % (Auto) [place] % (Auto) Eos % (Auto) Baso % (Auto) Reticulocyte % (Auto) Neut # (Auto) Lymph # (Auto) [place] # (Auto) Eos # (Auto) Baso # (Auto) Reticulocyte # Immature Gran # (Auto) ESR PT INR APTT PTT Ratio POC Sodium 139 Sodium POC Potassium 4.3 Potassium POC Chloride 92 L Chloride Carbon Dioxide POC Total CO2 23 L Anion Gap POC Anion Gap 29.0 H POC BUN 23 H BUN Creatinine POC Creatinine 1.4 H Est Cr Clr Drug Dosing Est GFR ( Amer) Est GFR (Non-Af Amer) BUN/Creatinine Ratio Glucose POC Glucose POC Glucose (other) 93 Osmolality Lactate 1.0 Calcium POC Ioniz Calcium [place] 1.07 L Magnesium Iron TIBC Unsaturated IBC Transferrin % Sat Ferritin Total Bilirubin AST ALT Alkaline Phosphatase Troponin I High Sens C-Reactive Protein Total Protein Albumin Globulin Albumin/Globulin Ratio Lipase Vitamin B12 Folate TSH Urine Color Urine Appearance Urine pH Ur Specific [place] Urine Protein Urine Glucose (UA) Urine Ketones Urine Blood Urine Nitrite Urine Bilirubin Urine Urobilinogen Ur Leukocyte Esterase Urine WBC (Auto) Urine RBC (Auto) U Hyaline Cast (Auto) U Epithel Cells (Auto) Urine Bacteria (Auto) Urine Osmolality Ur Random Sodium Nasal Screen MRSA (PCR) SARS-CoV-2, RNA, NAAT Blood Type O Positive Antibody Screen NEGATIVE 12/24/22 12/24/22 12/24/22 11:14 11:14 11:49 WBC RBC Hgb POC Hgb Hct POC Hct MCV MCH MCHC RDW Std Deviation RDW Coeff of Мария Plt Count MPV Immature Gran % (Auto) Neut % (Auto) Lymph % (Auto) [place] % (Auto) Eos % (Auto) Baso % (Auto) Reticulocyte % (Auto) Neut # (Auto) Lymph # (Auto) [place] # (Auto) Eos # (Auto) Baso # (Auto) Reticulocyte # Immature Gran # (Auto) ESR PT 12.7 H INR 1.2 H APTT 35.0 H PTT Ratio 1.3 POC Sodium Sodium 126 L POC Potassium Potassium 4.7 POC Chloride Chloride 97 L Carbon Dioxide 25 POC Total CO2 Anion Gap 4 POC Anion Gap POC BUN BUN 25 H Creatinine 1.21 POC Creatinine Est Cr Clr Drug Dosing 66.4 Est GFR ( Amer) 74.4 Est GFR (Non-Af Amer) 64.2 BUN/Creatinine Ratio 20.7 H Glucose 98 POC Glucose 96 POC Glucose (other) Osmolality Lactate Calcium 8.1 L POC Ioniz Calcium [place] Magnesium Iron TIBC Unsaturated IBC Transferrin % Sat Ferritin Total Bilirubin AST ALT Alkaline Phosphatase Troponin I High Sens 17.3 C-Reactive Protein Total Protein Albumin Globulin Albumin/Globulin Ratio Lipase Vitamin B12 Folate TSH Urine Color Urine Appearance Urine pH Ur Specific [place] Urine Protein Urine Glucose (UA) Urine Ketones Urine Blood Urine Nitrite Urine Bilirubin Urine Urobilinogen Ur Leukocyte Esterase Urine WBC (Auto) Urine RBC (Auto) U Hyaline Cast (Auto) U Epithel Cells (Auto) Urine Bacteria (Auto) Urine Osmolality Ur Random Sodium Nasal Screen MRSA (PCR) SARS-CoV-2, RNA, NAAT Blood Type Antibody Screen 12/24/22 12/24/22 12/24/22 16:23 17:00 17:00 WBC RBC Hgb POC Hgb Hct POC Hct MCV MCH MCHC RDW Std Deviation RDW Coeff of Мария Plt Count MPV Immature Gran % (Auto) Neut % (Auto) Lymph % (Auto) [place] % (Auto) Eos % (Auto) Baso % (Auto) Reticulocyte % (Auto) Neut # (Auto) Lymph # (Auto) [place] # (Auto) Eos # (Auto) Baso # (Auto) Reticulocyte # Immature Gran # (Auto) ESR PT INR APTT PTT Ratio POC Sodium Sodium POC Potassium Potassium POC Chloride Chloride Carbon Dioxide POC Total CO2 Anion Gap POC Anion Gap POC BUN BUN Creatinine POC Creatinine Est Cr Clr Drug Dosing Est GFR ( Amer) Est GFR (Non-Af Amer) BUN/Creatinine Ratio Glucose POC Glucose 296 H POC Glucose (other) Osmolality Lactate Calcium POC Ioniz Calcium [place] Magnesium Iron TIBC Unsaturated IBC Transferrin % Sat Ferritin Total Bilirubin AST ALT Alkaline Phosphatase Troponin I High Sens C-Reactive Protein Total Protein Albumin Globulin Albumin/Globulin Ratio Lipase Vitamin B12 Folate TSH Urine Color Yellow Urine Appearance Clear Urine pH 5.5 Ur Specific [place] 1.011 Urine Protein Trace H Urine Glucose (UA) 2+ H Urine Ketones Negative Urine Blood Negative Urine Nitrite Negative Urine Bilirubin Negative Urine Urobilinogen Negative Ur Leukocyte Esterase Negative Urine WBC (Auto) 1-5 Urine RBC (Auto) 0-4 U Hyaline Cast (Auto) 1-5 U Epithel Cells (Auto) 0-5 Urine Bacteria (Auto) Negative Urine Osmolality Ur Random Sodium Nasal Screen MRSA (PCR) Pending SARS-CoV-2, RNA, NAAT Blood Type Antibody Screen 12/24/22 12/24/22 12/24/22 17:00 17:00 17:09 WBC 8.15 RBC 3.38 L Hgb 9.2 L POC Hgb Hct 27.0 L POC Hct MCV 79.9 L MCH 27.2 MCHC 34.1 RDW Std Deviation 33.4 L RDW Coeff of Мария 11.5 Plt Count 356 MPV 9.9 Immature Gran % (Auto) Neut % (Auto) Lymph % (Auto) [place] % (Auto) Eos % (Auto) Baso % (Auto) Reticulocyte % (Auto) Neut # (Auto) Lymph # (Auto) [place] # (Auto) Eos # (Auto) Baso # (Auto) Reticulocyte # Immature Gran # (Auto) ESR PT INR APTT PTT Ratio POC Sodium Sodium POC Potassium Potassium POC Chloride Chloride Carbon Dioxide POC Total CO2 Anion Gap POC Anion Gap POC BUN BUN Creatinine POC Creatinine Est Cr Clr Drug Dosing Est GFR ( Amer) Est GFR (Non-Af Amer) BUN/Creatinine Ratio Glucose POC Glucose POC Glucose (other) Osmolality Lactate Calcium POC Ioniz Calcium [place] Magnesium Iron TIBC Unsaturated IBC Transferrin % Sat Ferritin Total Bilirubin AST ALT Alkaline Phosphatase Troponin I High Sens C-Reactive Protein Total Protein Albumin Globulin Albumin/Globulin Ratio Lipase Vitamin B12 Folate TSH Urine Color Urine Appearance Urine pH Ur Specific [place] Urine Protein Urine Glucose (UA) Urine Ketones Urine Blood Urine Nitrite Urine Bilirubin Urine Urobilinogen Ur Leukocyte Esterase Urine WBC (Auto) Urine RBC (Auto) U Hyaline Cast (Auto) U Epithel Cells (Auto) Urine Bacteria (Auto) Urine Osmolality Pending Ur Random Sodium Pending Nasal Screen MRSA (PCR) SARS-CoV-2, RNA, NAAT Blood Type Antibody Screen 12/24/22 12/24/22 12/24/22 17:09 17:09 17:09 WBC RBC Hgb POC Hgb Hct POC Hct MCV MCH MCHC RDW Std Deviation RDW Coeff of Мария Plt Count MPV Immature Gran % (Auto) Neut % (Auto) Lymph % (Auto) [place] % (Auto) Eos % (Auto) Baso % (Auto) Reticulocyte % (Auto) 1.5 Neut # (Auto) Lymph # (Auto) [place] # (Auto) Eos # (Auto) Baso # (Auto) Reticulocyte # 0.05 Immature Gran # (Auto) ESR PT INR APTT PTT Ratio POC Sodium Sodium 123 L POC Potassium Potassium 5.1 POC Chloride Chloride 94 L Carbon Dioxide 23 POC Total CO2 Anion Gap 6 POC Anion Gap POC BUN BUN 28 H Creatinine 1.23 POC Creatinine Est Cr Clr Drug Dosing 65.4 Est GFR ( Amer) 73.0 Est GFR (Non-Af Amer) 63.0 BUN/Creatinine Ratio 22.8 H Glucose 277 H POC Glucose POC Glucose (other) Osmolality Lactate Calcium 8.2 L POC Ioniz Calcium [place] Magnesium Iron 22 L TIBC 202 L Unsaturated IBC 180 Transferrin % Sat 11 L Ferritin Pending Total Bilirubin AST ALT Alkaline Phosphatase Troponin I High Sens Pending C-Reactive Protein 13.19 H Total Protein Albumin Globulin Albumin/Globulin Ratio Lipase Vitamin B12 Pending Folate Pending TSH Urine Color Urine Appearance Urine pH Ur Specific [place] Urine Protein Urine Glucose (UA) Urine Ketones Urine Blood Urine Nitrite Urine Bilirubin Urine Urobilinogen Ur Leukocyte Esterase Urine WBC (Auto) Urine RBC (Auto) U Hyaline Cast (Auto) U Epithel Cells (Auto) Urine Bacteria (Auto) Urine Osmolality Ur Random Sodium Nasal Screen MRSA (PCR) SARS-CoV-2, RNA, NAAT Blood Type Antibody Screen 12/24/22 17:09 WBC RBC Hgb POC Hgb Hct POC Hct MCV MCH MCHC RDW Std Deviation RDW Coeff of Мария Plt Count MPV Immature Gran % (Auto) Neut % (Auto) Lymph % (Auto) [place] % (Auto) Eos % (Auto) Baso % (Auto) Reticulocyte % (Auto) Neut # (Auto) Lymph # (Auto) [place] # (Auto) Eos # (Auto) Baso # (Auto) Reticulocyte # Immature Gran # (Auto) ESR 69 H PT INR APTT PTT Ratio POC Sodium Sodium POC Potassium Potassium POC Chloride Chloride Carbon Dioxide POC Total CO2 Anion Gap POC Anion Gap POC BUN BUN Creatinine POC Creatinine Est Cr Clr Drug Dosing Est GFR ( Amer) Est GFR (Non-Af Amer) BUN/Creatinine Ratio Glucose POC Glucose POC Glucose (other) Osmolality Lactate Calcium POC Ioniz Calcium [place] Magnesium Iron TIBC Unsaturated IBC Transferrin % Sat Ferritin Total Bilirubin AST ALT Alkaline Phosphatase Troponin I High Sens C-Reactive Protein Total Protein Albumin Globulin Albumin/Globulin Ratio Lipase Vitamin B12 Folate TSH Urine Color Urine Appearance Urine pH Ur Specific [place] Urine Protein Urine Glucose (UA) Urine Ketones Urine Blood Urine Nitrite Urine Bilirubin Urine Urobilinogen Ur Leukocyte Esterase Urine WBC (Auto) Urine RBC (Auto) U Hyaline Cast (Auto) U Epithel Cells (Auto) Urine Bacteria (Auto) Urine Osmolality Ur Random Sodium Nasal Screen MRSA (PCR) SARS-CoV-2, RNA, NAAT Blood Type Antibody Screen Diagnostic Findings Telemetry personally reviewed: Atrial flutter with improved heart rate following digoxin administration there was a 7.7 ventricular pause at 9:39 a.m. which correlates with adenosine 6 mg IV x1 in the emergency department. Chest x-ray personally reviewed from 12/30/2022: No infiltrate. Radiology interpretation as no acute chest disease. KUB from 12/24/2022 reported as nonobstructive bowel gas pattern. Echo 12/24/2022 personally review: Preliminary review normal LV systolic function. Moderate pericardial effusion Chart review. ECG 12/24/2022 at 9:09 a.m.: Atrial flutter with rapid ventricular response 159 beats per minute diffuse ST elevation. Medications Administered Current Inpatient Medications Acetaminophen (Acetaminophen 325 Mg Tab) 650 mg PO Q4H PRN PRN Reason: Pain or Fever Stop: 01/23/23 11:40 Dextrose (Dextrose 50% 50 Ml Syringe) 25 - 50 ml IV UD PRN; Protocol PRN Reason: Hypoglycemia Protocol Stop: 01/23/23 11:40 Glucagon (Glucagon For Inj 1 Mg Vial) 1 mg SQ UD PRN; Protocol PRN Reason: Hypoglycemia Protocol Stop: 01/23/23 11:40 Glucose (Glucose 40% Gel 15 Gm Tube) 15 - 30 gm PO UD PRN; Protocol PRN Reason: Hypoglycemia Protocol Stop: 01/23/23 11:40 Glucose (Glucose 10 Tab/Tube) 4 - 8 tab PO UD PRN; Protocol PRN Reason: Hypoglycemia Treatment Stop: 01/23/23 11:40 Diltiazem HCl 125 mg/ Dextrose 125 mls @ 10 mls/hr IV .[id number] ZULEMA; Protocol Stop: 01/23/23 09:44 Last Titration: 12/24/22 16:07 Dose: 10 mg/hr, 10 mls/hr Pantoprazole Sodium 40 mg/ (Syringe) 10 mls @ 5 mls/min IV BID [facility] Stop: 01/23/23 20:59 Digoxin 125 mcg/ Syringe 10 mls @ 2 mls/min IV Q6H [facility] Stop: 12/25/22 00:04 Insulin Aspart (Insulin Aspart Per Unit) 0 units SC ACHS ZULEMA Stop: 01/23/23 11:40 Last Admin: 12/24/22 17:19 Dose: 4 units Miscellaneous (Carbohydrates For Hypoglycemia ) 15 - 30 gm PO UD PRN PRN Reason: Hypoglycemia Protocol Stop: 01/23/23 11:40 PG Care Time/CCT Total # of Minutes Spent Total Time Spent with Patient: Total time spent is greater than 50% in coordination of care (as documented) at patient's floor/unit and/or counseling patient: Coding Level of Care Code INP/OBS CONSULT LVL 5, 80 MIN Diagnoses Atrial flutter with rapid ventricular response I48.92 Pericardial effusion I31.39 Hypotension I95.9 Anemia D64.9 Anemia type: unspecified type Acute GI bleeding K92.2 Dysphagia R13.10 (1) Anemia Anemia type: unspecified type Qualified Code(s): D64.9 - Anemia, unspecified
[2022-12-24 17:55] LABS: BUN Creatinine Ratio 22.8 (10-20); C Reactive Protein 13.19 mg/dl (0-0.5); Calcium 8.2 mg/dl (8.5-10.1); Creatinine Clr Calc Pharmacy 65.4 ml/min; Potassium 5.1 mmol/L (3.5-5.1)
[2022-12-24 18:01] LABS: Troponin I High Sensitivity 27.5 pg/ml (0-20)
[2022-12-24 18:15] LABS: Ferritin 414.6 ng/ml (8-388)
[2022-12-24] MEDS ORDERED: SODIUM CHLORIDE 3 % 50 ML IV ONE ×3 (18:46→22:00)
[2022-12-24] MEDS ORDERED: STAT IV STA (18:46)
[2022-12-24] MEDS ORDERED: OPTIRAY 350 100ml IV ONE (19:48)
--- NOTE | 2022-12-24 20:19 | CT Scan Report ---
CT SCAN OF THE CHEST, ABDOMEN, AND PELVIS WITH IV CONTRAST CLINICAL HISTORY: Pleural effusion. Dysphagia. COMPARISON STUDY: Radiographs of the chest, abdomen, and pelvis dated 12/24/2022. TECHNIQUE: Following the IV administration of 85 of Optiray 350, CT scan of the chest, abdomen, and p stephanie was performed from the thoracic inlet to the proximal femora. Images are reviewed in the axial, sagittal, and coronal planes. IV contrast was administered without complication. A dose lowering te chnique was utilized adhering to the principles of ALARA. The examinations are degraded by motion art ifact. CT DOSE: 872.42 mGy.cm FINDINGS: CHEST: Thyroid: Imaged portions of the thyroid gland are normal in size and attenuation. Thoracic aorta: The thoracic aorta is normal in caliber and demonstrates 4-vessel variant arch anatom y. No dissection is seen. Pulmonary vasculature: The pulmonary trunk is normal in caliber. There are no filling defects identif ied in the central pulmonary vessels to indicate pulmonary embolus. Note that this examination was no t protocoled for evaluation of the pulmonary arteries. Heart: The heart is mildly enlarged noting a moderate to large pericardial effusion. There is associa ty pericardial thickening. There are coronary artery calcifications. Lungs and pleural spaces: Evaluation of the lung parenchyma is compromised by motion artifact. The tr achea and central airways are clear. There are small pleural effusions with dependent consolidation. Mediastinum: There is infiltration throughout the mediastinum. No significant lymphadenopathy is seen . No pneumomediastinum is identified. Esophagus: The esophageal wall appears diffusely thickened and there is a small hiatal hernia. Anusha: Clear. Axillae: There is no axillary lymphadenopathy. Bony thorax: No lytic or blastic lesions are identified. ABDOMEN AND PELVIS: Liver: The contrast-enhanced liver is normal in size, contour, and attenuation. There is no intrahepa tic biliary ductal dilatation. The hepatic veins and portal veins are patent. Periportal edema is obs erved. Gallbladder: Unremarkable. Spleen: Normal in size and attenuation. Pancreas: Unremarkable. Adrenal glands: Unremarkable. Kidneys: The contrast enhanced kidneys are normal in size and without hydronephrosis. The kidneys enh ance symmetrically. There is nonspecific bilateral perinephric stranding and fluid. Abdominal vasculature: The abdominal aorta is normal in course and caliber noting mild atheroscleroti c calcification. Bowel: There is rectosigmoid fecal retention and moderate constipation. No bowel obstruction is seen. The appendix is well-visualized and normal. Peritoneum: There is no intraperitoneal free air or abdominal ascites. Lymphadenopathy: None. Pelvic viscera: The prostate gland is enlarged and heterogeneous. The bladder is markedly distended. The wall appears thickened/trabeculated suggesting chronic outlet obstruction. Skeletal structures: No lytic or blastic lesions are seen. IMPRESSION: 1. The heart is enlarged, and there is a moderate to large pericardial effusion. There is associated pericardial thickening and enhancement. Correlate clinically for evidence of pericarditis. This could be further assessed with echocardiography if clinically warranted. 2. Small pleural effusions with dependent consolidation. This could represent atelectasis and/or pneu monia/aspiration pneumonitis. Clinical correlation will be required. 3. The esophageal wall appears diffusely thickened. Correlate clinically for evidence of esophagitis. This could be further assessed with endoscopy if clinically warranted. 4. Nonspecific inflammation is seen throughout the mediastinum. Correlate clinically. 5. Marked bladder distention with evidence of chronic outlet obstruction. 6. There is nonspecific bilateral perinephric stranding and fluid. Correlate with clinical findings a nd urinalysis. 7. Rectosigmoid fecal retention and moderate constipation.. 8. Additional findings as above. ACT 112: Negative or not required by law. Electronically signed by: Jhonny Hoskins M.D. 12/24/2022 8:17 PM
[2022-12-24] MEDS: POLYETHYLENE (MIRALAX) 17 GM PACK PO SCH (21:35)
[2022-12-24] MEDS: DIGOXIN 125 MCG in SYRINGE 9.5 ML IV SCH (21:35)
[2022-12-24] MEDS: DOCUSATE SODIUM 100 MG CAP PO SCH (21:35)
[2022-12-24] MEDS: PANTOprazole 40 MG in SYRINGE 0 ML IV SCH (21:36)
[2022-12-25] MEDS: DIGOXIN 125 MCG in SYRINGE 9.5 ML IV SCH (01:24)
--- NOTE | 2022-12-25 05:29 | XCELERA ---
[id number]
--- NOTE | 2022-12-25 06:09 | Electrocardiogram Report ---
Test Reason : Blood Pressure : / mmHG Vent. Rate : 159 BPM Atrial Rate : 156 BPM P-R Int : 000 ms QRS Dur : 084 ms QT Int : 238 ms P-R-T Axes : 000 064 057 degrees QTc Int : 387 ms Atrial flutter with 2 to [address] elevation Abnormal ECG No previous ECGs available Confirmed by Juancarlos Stephenson ([id number]) on 12/25/2022 6:09:05 AM Referred By: Umesh Leavitt Confirmed By:Juancarlos Stephenson
[2022-12-25 07:57] LABS: Basophils # (auto) 0.03 K/uL (0-0.2); Basophils % (auto) 0.4 %; Eosinophils # (auto) 0.01 K/uL (0-0.50); Eosinophils % (auto) 0.1 %; Hemoglobin 9.6 g/dl (14.0-18.0); Immature Granulocytes # (auto) 0.02 K/uL (0.01-0.20); Immature Granulocytes % (auto) 0.3 %; Lymphocytes # (auto) 1.05 K/uL (1.2-3.4); Lymphocytes % (auto) 13.5 %; Mean Corpuscular Hemoglobin 27.7 pg (25.0-34.0); Mean Corpuscular Hgb Conc 34.3 g/dL (32.0-36.0); Mean Corpuscular Volume 80.7 fL (80.0-100.0); Mean Platelet Volume 9.6 fL (9.4-12.4); Monocytes # (auto) 0.83 K/uL (0.11-0.59); Monocytes % (auto) 10.6 %; Neutrophils # (auto) 5.86 K/uL (1.40-6.50); Neutrophils % (auto) 75.1 %; Platelet Count 335 K/uL (130-400); RDW Coefficient of Variation 11.7 % (11.5-14.5); RDW Standard Deviation 33.9 fL (36.4-46.3); Red Blood Count 3.47 M/uL (4.70-6.10)
[2022-12-25] MEDS: INSULIN ASPART PER UNIT SC SCH ×5 (08:07→20:18)
[2022-12-25 08:10] LABS: BUN Creatinine Ratio 16.6 (10-20); Calcium 8.5 mg/dl (8.5-10.1); Creatinine Clr Calc Pharmacy 42.9 ml/min; Est GFR (Non-African American) 37.9 ml/min; Potassium 5.1 mmol/L (3.5-5.1)
[2022-12-25] MEDS: POLYETHYLENE (MIRALAX) 17 GM PACK PO SCH ×2 (08:26→20:04)
[2022-12-25] MEDS: DOCUSATE SODIUM 100 MG CAP PO SCH ×2 (08:27→20:04)
[2022-12-25] MEDS: PANTOprazole 40 MG in SYRINGE 0 ML IV SCH ×2 (08:27→20:04)
[2022-12-25] MEDS: dilTIAZem HCL 125 MG in DEXTROSE 5% 100 ML IV SCH ×2 (08:30→18:44)
[2022-12-25 09:18] LABS: Estimated Average Glucose 237 mg/dl; Hemoglobin A1C 9.9 % (4.5-5.6)
--- NOTE | 2022-12-25 10:28 | Gastrointestinal Consultation ---
Date of Consultation December 25, 2022 Assessment & Plan (1) Acute GI bleeding: (2) Anemia: (3) Atrial flutter with rapid ventricular response: Plan Discussed with Dr. Swanson & anesthesia. Would utilize IV Protonix 40 mg BID and continue to monitor H/H closely. Patient can be fed today, however will prep tomorrow for colon & EGD on 12/27/22. History of Present Illness Reason for Consultation: Heme positive stool, anemia Attending Physician: Jarred Jackson History of Present Illness Patient is a 62 yo female with PMH of DM2 and hypertension who presented to the ED with abdominal pain. He notes that he had not moved his bowels for many days and then had a large bowel movement that was darker than usual. He was heme positive in the ED. H/H is 9.6/28.0. BUN 31. He was found to be in Afib with RVR. GI has been consulted for evaluation of melena & anemia in preparation to anticoagulate this patient. Patient encounter was facilitated with the use of a [employer] #[id number]. He denies abdominal pain at present. He denies previous history of PUD, but notes intermittent GERD. He denies tobacco or NSAID use. He denies hematemesis/coffee ground emesis. He last had liquids by mouth at 7:45 this AM. He notes ongoing dysphagia that has not been evaluated previously. This only happens with solid foods. In the emergency room, he was given Adenosine 6 mg IV due to narrow complex tachycardia with improvement. He then was started on a Diltiazem drip. He is awaiting the implementation of anticoagulation.Cardiology has been consulted. At the time of my visit, his heart rate was 90. Abdominal CT findings as follows: 1. The heart is enlarged, and there is a moderate to large pericardial effusion. There is associated pericardial thickening and enhancement. Correlate clinically for evidence of pericarditis. This could be further assessed with echocardiograp hy if clinically warranted. 2. Small pleural effusions with dependent consolidation. This could represent atelectasis and/or pneumonia/aspiration pneumonitis. Clinical correlation will be required. 3. The esophageal wall appears diffusely thickened. Correlate clinically for evidence of esophagitis. This could be further assessed with endoscopy if clinically warranted. 4. Nonspecific inflammation is seen throughout the mediastinum. Correlate clinically. 5. Marked bladder distention with evidence of chronic outlet obstruction. 6. There is nonspecific bilateral perinephric stranding and fluid. Correlate with clinical findings and urinalysis. 7. Rectosigmoid fecal retention and moderate constipation.. 8. Additional findings as above. No pertinent family history. 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 Beliefs That Will Affect Care: Advent Current Living Situation: Other Feels Safe at Home: Yes Assistive Devices: None Review of Systems Constitutional: no fever, no chills and no weight loss Respiratory: + dyspnea on exertion; no cough Cardiovascular: no chest pain Gastrointestinal: + abdominal pain, + heartburn and + melena; no coffee ground emesis, no hematemesis, no change in bowel habits, no diarrhea/loose stools and no blood in stools Musculoskeletal: no problem reported Psychiatric: no problem reported Physical Exam Constitutional: well developed Respiratory: normal respiratory effort Cardiovascular: Rate/Rhythm: regular rate Gastrointestinal (Abdomen): normal bowel sounds, soft, nontender, no hepatosplenomegaly Musculoskeletal: Head/Neck/Chest: normocephalic Psychiatric: Orientation: alert and oriented x 3 Results & Data ([facility]) Vital Signs (Past 12 Hours) Vital Signs Temp Pulse Pulse Pulse Resp BP Pulse Ox 12/25/22 08:00 12/25/22 08:08 37 C 108 H 20 109/72 12/25/22 03:45 38.1 C H 110 H 22 108/65 92 12/25/22 01:24 125 H 12/24/22 23:10 37.4 C 119 H 20 142/73 H 92 O2 Del Method O2 Flow Rate 12/25/22 08:00 Nasal Cannula 6 12/25/22 08:08 Room Air 12/25/22 03:45 Nasal Cannula 2 12/25/22 01:24 12/24/22 23:10 Room Air PG Care Time/CCT Total # of Minutes Spent Total Time Spent with Patient: Total time spent is greater than 50% in coordination of care (as documented) at patient's floor/unit and/or counseling patient: Coding Level of Care Code INP/OBS CONSULT LVL 4, 60 MIN Diagnoses Acute GI bleeding K92.2 Anemia D64.9 Anemia type: unspecified type Atrial flutter with rapid ventricular response I48.92 (2) Anemia Anemia type: unspecified type Qualified Code(s): D64.9 - Anemia, unspecified
--- NOTE | 2022-12-25 11:39 | XRay Report ---
XR chest 1V portable HISTORY: 62 years-old Male hypoxia acute hypoxia COMPARISON: Chest CT 12/24/2022 TECHNIQUE: AP view of the chest FINDINGS: Cardiac silhouette is enlarged. Pulmonary vascular congestion. Small pleural effusions with mild biba silar densities redemonstrated. No pneumothorax. Degenerative changes of the shoulders and spine. IMPRESSION: 1. Cardiomegaly with pulmonary vascular congestion. 2. Small pleural effusions with mild bibasilar densities suggestive of atelectasis, similar to yester day's exam. ACT 112: Negative or not required by law. The above report was generated using voice recognition software. It may contain grammatical, syntax o r spelling errors. Electronically signed by: Sanjiv Pitts M.D. 12/25/2022 11:38 AM
[2022-12-25] MEDS ORDERED: PHARMACY GLYCEMIC MGMT CONSULT PRN (12:00)
[2022-12-25] MEDS ORDERED: LANTUS PER UNIT CHARGE SQ ONE ×2 (12:45→21:00)
[2022-12-25] MEDS: METOPROLOL TARTRATE 25 MG TAB PO SCH ×3 (12:55→23:03)
[2022-12-25] MEDS ORDERED: INSULIN HUMAN REGULAR PER UNIT 8 UNITS in SYRINGE 7.92 ML IV ONE (13:00)
--- NOTE | 2022-12-25 13:01 | Pharmacy Report ---
Pharmacy Glycemic Short Note 2 - Date of Service December 25, 2022 - Glycemic Short BSG Results (Last 24 hours): 12/24/22 12/24/22 12/24/22 16:23 17:09 20:12 Glucose 277 H POC Glucose 296 H 240 H 12/25/22 12/25/22 12/25/22 07:26 08:05 12:19 Glucose 263 H POC Glucose 286 H 313 H* OUTPATIENT ANTIDIABETIC REGIMEN: * Medications per department of corrections documentation in EHR * Humulin R SSI * Metformin 1 g PO BIDM HbA1c: 9.9% (12/25/22) ASSESSMENT: * Patient is a 62 year old male with very poorly controlled T2DM on SSI and metformin * Presented to ED on 12/24/22 from [facility] for evaluation of acute abdominal pain and possible acute ND * Subsequently found to have Afib w/ RVR - started on diltiazem gtt (mixed in dextrose) * Pharmacy consulted ~lunchtime on 12/25 due to persistent hyperglycemia (>300 mg/dL at lunch) * Prior regimen clearly inadequate with correctional insulin only * Will add basal, carb coverage, and a one-time IV insulin bolus PLAN FOR INPATIENT GLYCEMIC CONTROL: * Hold outpatient oral diabetes medications * Basal insulin * Lantus 20 units SC x 1 * Bolus insulin * NovoLog per scale ACHS or Q6hrs while NPO * Goal Range: Low 110 mg/dL - High 140 mg/dL * Correction Factor: 20 mg/dL/unit * Nutritional / Prandial insulin per carb ratio of 1 unit per 7 grams CHO consumed * IV insulin 8 unit bolus x 1 (~0.1 unit/kg)
[2022-12-25] MEDS: LACTATED RINGER'S 1,000 ML IV SCH ×2 (13:16→18:09)
--- NOTE | 2022-12-25 14:10 | Cardiology Progress Note ---
Date of Service December 25, 2022 Assessment & Plan (1) Atrial flutter with rapid ventricular response: (2) Pericardial effusion: (3) Hypotension: (4) Anemia: (5) Acute GI bleeding: (6) Dysphagia: (7) Acute pericarditis: (8) Cardiac tamponade: Plan ASSESSMENT/PLAN: 1. Atrial flutter with rapid ventricular response: Heart rate overall improved on diltiazem drip however digoxin appeared to offer the most improvement. Given his renal function is worsening, digoxin discontinued. Ordered metoprolol 25 mg p.o. q.6 hours. No anticoagulation given heme-positive stool and anemia. GI workup is pending. Would ideally like to regain sinus rhythm but for now rate control unless he requires urgent cardioversion. 2. Pericardial effusion: Denied any symptoms of chest pain or shortness of breath when seen this morning. Repeat limited echo. Blood pressure has been stable. ECG concerning for acute pericarditis. 3. Dysphagia: Has poor appetite and difficulty swallowing and was likely hypovolemic on presentation. Esophageal thickening noted. Endoscopy pending. Per GI. 4. Anemia/GI bleed: Heme-positive stool per records and ED physician. Endoscopy is pending with GI. 5. Hypotension: Resolved. Likely was hypovolemic and received bolus of intravenous diltiazem, in the setting of pericardial effusion. Repeating limited echo today. 6. Hypoxia: Denies any shortness of breath. Oxygen saturation quickly normalized with supplemental oxygen via nasal cannula. Received fluid boluses yesterday. Chest x-ray ordered. Would try to avoid diuresis in the setting of pericardial effusion. Repeating echo. Notified hospitalist. If he does not tolerate nasal cannula, suggest using a mask. 7. Disposition: Patient care communicated with primary hospitalist, Dr. Jackson. Plan discussed with nursing staff. Cardiology will continue to follow. Addendum: Limited echo demonstrated worsening pericardial effusion with tamponade physiology. Call nursing staff and he is now on high-flow nasal cannula. Chest x-ray demonstrated pleural effusions and pulmonary vascular congestion. Once again returned to the bedside and through the assistance of a full time staff interpreter, informed him of the echo findings. Unfortunately, he repeatedly interrupted the sign language interpreter. He was asked once again if he had chest pain. He said no. Later on when answering a different question, he referenced earlier today when he had chest pain. Nursing staff also reports that his glucose levels continued to escalate despite treating with insulin. Recommended pericardiocentesis. The procedure was discussed with him. He was given an opportunity to answer questions. Risks and benefits were discussed with him. He verbally agreed to proceed with pericardiocentesis. Discussed with Dr. Lemus of Interventional Cardiology who reviewed echo images and also agreed to perform the procedure later today. Currently he is hemodynamically stable. Etiology of pericardial effusion is not yet known. SPEP/UPEP ordered as his left ventricle demonstrates severe LVH. CT imaging reported markedly distended bladder. Call nursing staff and she states that he has not been up to use the restroom since approximately 9:00 a.m.. Asked her to perform a bladder scan, especially given worsening renal function. For the acute pericarditis, recommend anti inflammatory. Avoid NSAID given heme-positive stool and anemia. Colchicine ordered. Dosing may need to be adjusted if renal function worsens. He apparently has had chest pain, however his answers have not been consistent. Disposition: Recommend transfer to ICU setting. Discussed with primary hospitalist, Dr. Jackson. He is arranging. Also called Dr. Fang of the Critical Care Team to update him on patient's current status and plan. 55 minutes of critical care time spent treating patient, arranging procedure, counseling patient, coordinating care, and discussing with multiple providers as noted above. Admission and Anticipated Discharge Date Admission Date: December 24, 2022 Subjective Patient seen this morning. History was obtained with the help of a chief librarian circulation department as he is Polish-speaking only. (Health Physics Technician Liliana #[id number]). According to the pulse oximeter at the bedside, his oxygen saturation was 77-82% on room air. He did not feel well when using a nasal cannula and therefore he removed it and it was laying on the floor. He denies shortness of breath. He denies chest pain, palpitations, syncope, near-syncope, bleeding, or edema. He had another bowel movement today. After discussion, he was willing to use supplemental oxygen and oxygen saturation quickly rebounded to 96% on 6 L. Discussed with nursing staff that if he is not willing to use nasal cannula, perhaps mask would be better tolerated. Physical Exam Physical Exam: Gen.: No acute distress. Alert. HEENT: Anicteric sclera. Neck: No appreciable JVD. Cardiac: No ventricular heave. Irregularly irregular. Normal heart rate. Normal S1-S2. No murmurs, rubs, or gallops. Pulmonary: Clear to auscultation bilaterally without wheezes, rales, or rhonchi. Abdomen: Soft, nontender, nondistended, with normoactive bowel sounds. No bruits noted. Extremities: 2+ radial pulses bilaterally. 2+ posterior tibialis pulses bila terally. No pitting edema or cyanosis. Results & Data ([facility]) Vital Signs (Past 12 Hours) Vital Signs Temp Pulse Pulse Resp BP Pulse Ox Pulse Ox 12/25/22 11:22 37.5 C 84 18 106/65 12/25/22 08:00 96 12/25/22 08:00 12/25/22 08:08 37 C 108 H 20 109/72 12/25/22 03:45 38.1 C H 110 H 22 108/65 92 O2 Del Method O2 Del Method O2 Flow Rate O2 Flow Rate 12/25/22 11:22 12/25/22 08:00 Nasal Cannula 6 12/25/22 08:00 Nasal Cannula 6 12/25/22 08:08 Room Air 12/25/22 03:45 Nasal Cannula 2 Intake & Output 12/23/22 12/24/22 12/25/22 12/26/22 06:59 06:59 06:59 06:59 Intake Total 2429.084 / 2429.084 118.666 / 118.666 Output Total Balance 2428.084 / 2428.084 118.666 / 118.666 Weight 192 lb 3.889 oz Laboratory Results Laboratory Results - last 24 hr 12/24/22 12/24/22 12/24/22 16:23 17:00 17:00 WBC RBC Hgb Hct MCV MCH MCHC RDW Std Deviation RDW Coeff of Мария Plt Count MPV Immature Gran % (Auto) Neut % (Auto) Lymph % (Auto) [place] % (Auto) Eos % (Auto) Baso % (Auto) Reticulocyte % (Auto) Neut # (Auto) Lymph # (Auto) [place] # (Auto) Eos # (Auto) Baso # (Auto) Reticulocyte # Immature Gran # (Auto) ESR Sodium Potassium Chloride Carbon Dioxide Anion Gap BUN Creatinine Est Cr Clr Drug Dosing Est GFR ( Amer) Est GFR (Non-Af Amer) BUN/Creatinine Ratio Glucose POC Glucose 296 H Estimat Average Glucose Hemoglobin A1c Calcium Iron TIBC Unsaturated IBC Transferrin % Sat Ferritin Troponin I High Sens C-Reactive Protein Vitamin B12 Folate Urine Color Yellow Urine Appearance Clear Urine pH 5.5 Ur Specific [place] 1.011 Urine Protein Trace H Urine Glucose (UA) 2+ H Urine Ketones Negative Urine Blood Negative Urine Nitrite Negative Urine Bilirubin Negative Urine Urobilinogen Negative Ur Leukocyte Esterase Negative Urine WBC (Auto) 1-5 Urine RBC (Auto) 0-4 U Hyaline Cast (Auto) 1-5 U Epithel Cells (Auto) 0-5 Urine Bacteria (Auto) Negative Urine Osmolality Ur Random Sodium Nasal Screen MRSA (PCR) Negative 12/24/22 12/24/22 12/24/22 17:00 17:00 17:09 WBC 8.15 RBC 3.38 L Hgb 9.2 L Hct 27.0 L MCV 79.9 L MCH 27.2 MCHC 34.1 RDW Std Deviation 33.4 L RDW Coeff of Мария 11.5 Plt Count 356 MPV 9.9 Immature Gran % (Auto) Neut % (Auto) Lymph % (Auto) [place] % (Auto) Eos % (Auto) Baso % (Auto) Reticulocyte % (Auto) Neut # (Auto) Lymph # (Auto) [place] # (Auto) Eos # (Auto) Baso # (Auto) Reticulocyte # Immature Gran # (Auto) ESR Sodium Potassium Chloride Carbon Dioxide Anion Gap BUN Creatinine Est Cr Clr Drug Dosing Est GFR ( Amer) Est GFR (Non-Af Amer) BUN/Creatinine Ratio Glucose POC Glucose Estimat Average Glucose Hemoglobin A1c Calcium Iron TIBC Unsaturated IBC Transferrin % Sat Ferritin Troponin I High Sens C-Reactive Protein Vitamin B12 Folate Urine Color Urine Appearance Urine pH Ur Specific [place] Urine Protein Urine Glucose (UA) Urine Ketones Urine Blood Urine Nitrite Urine Bilirubin Urine Urobilinogen Ur Leukocyte Esterase Urine WBC (Auto) Urine RBC (Auto) U Hyaline Cast (Auto) U Epithel Cells (Auto) Urine Bacteria (Auto) Urine Osmolality 300 L Ur Random Sodium 18 Nasal Screen MRSA (PCR) 12/24/22 12/24/22 12/24/22 17:09 17:09 17:09 WBC RBC Hgb Hct MCV MCH MCHC RDW Std Deviation RDW Coeff of Мария Plt Count MPV Immature Gran % (Auto) Neut % (Auto) Lymph % (Auto) [place] % (Auto) Eos % (Auto) Baso % (Auto) Reticulocyte % (Auto) 1.5 Neut # (Auto) Lymph # (Auto) [place] # (Auto) Eos # (Auto) Baso # (Auto) Reticulocyte # 0.05 Immature Gran # (Auto) ESR Sodium 123 L Potassium 5.1 Chloride 94 L Carbon Dioxide 23 Anion Gap 6 BUN 28 H Creatinine 1.23 Est Cr Clr Drug Dosing 65.4 Est GFR ( Amer) 73.0 Est GFR (Non-Af Amer) 63.0 BUN/Creatinine Ratio 22.8 H Glucose 277 H POC Glucose Estimat Average Glucose Hemoglobin A1c Calcium 8.2 L Iron 22 L TIBC 202 L Unsaturated IBC 180 Transferrin % Sat 11 L Ferritin 414.6 H Troponin I High Sens 27.5 H D C-Reactive Protein 13.19 H Vitamin B12 786 Folate 15.30 Urine Color Urine Appearance Urine pH Ur Specific [place] Urine Protein Urine Glucose (UA) Urine Ketones Urine Blood Urine Nitrite Urine Bilirubin Urine Urobilinogen Ur Leukocyte Esterase Urine WBC (Auto) Urine RBC (Auto) U Hyaline Cast (Auto) U Epithel Cells (Auto) Urine Bacteria (Auto) Urine Osmolality Ur Random Sodium Nasal Screen MRSA (PCR) 12/24/22 12/24/22 12/25/22 17:09 20:12 07:26 WBC 7.80 RBC 3.47 L Hgb 9.6 L Hct 28.0 L MCV 80.7 MCH 27.7 MCHC 34.3 RDW Std Deviation 33.9 L RDW Coeff of Мария 11.7 Plt Count 335 MPV 9.6 Immature Gran % (Auto) 0.3 Neut % (Auto) 75.1 Lymph % (Auto) 13.5 [place] % (Auto) 10.6 Eos % (Auto) 0.1 Baso % (Auto) 0.4 Reticulocyte % (Auto) Neut # (Auto) 5.86 Lymph # (Auto) 1.05 L [place] # (Auto) 0.83 H Eos # (Auto) 0.01 Baso # (Auto) 0.03 Reticulocyte # Immature Gran # (Auto) 0.02 ESR 69 H Sodium Potassium Chloride Carbon Dioxide Anion Gap BUN Creatinine Est Cr Clr Drug Dosing Est GFR ( Amer) Est GFR (Non-Af Amer) BUN/Creatinine Ratio Glucose POC Glucose 240 H Estimat Average Glucose Hemoglobin A1c Calcium Iron TIBC Unsaturated IBC Transferrin % Sat Ferritin Troponin I High Sens C-Reactive Protein Vitamin B12 Folate Urine Color Urine Appearance Urine pH Ur Specific [place] Urine Protein Urine Glucose (UA) Urine Ketones Urine Blood Urine Nitrite Urine Bilirubin Urine Urobilinogen Ur Leukocyte Esterase Urine WBC (Auto) Urine RBC (Auto) U Hyaline Cast (Auto) U Epithel Cells (Auto) Urine Bacteria (Auto) Urine Osmolality Ur Random Sodium Nasal Screen MRSA (PCR) 12/25/22 12/25/22 12/25/22 07:26 07:26 08:05 WBC RBC Hgb Hct MCV MCH MCHC RDW Std Deviation RDW Coeff of Мария Plt Count MPV Immature Gran % (Auto) Neut % (Auto) Lymph % (Auto) [place] % (Auto) Eos % (Auto) Baso % (Auto) Reticulocyte % (Auto) Neut # (Auto) Lymph # (Auto) [place] # (Auto) Eos # (Auto) Baso # (Auto) Reticulocyte # Immature Gran # (Auto) ESR Sodium 125 L Potassium 5.1 Chloride 94 L Carbon Dioxide 22 Anion Gap 9 BUN 31 H Creatinine 1.87 H D Est Cr Clr Drug Dosing 42.9 Est GFR ( Amer) 44.0 Est GFR (Non-Af Amer) 37.9 BUN/Creatinine Ratio 16.6 Glucose 263 H POC Glucose 286 H Estimat Average Glucose 237 Hemoglobin A1c 9.9 H Calcium 8.5 Iron TIBC Unsaturated IBC Transferrin % Sat Ferritin Troponin I High Sens C-Reactive Protein Vitamin B12 Folate Urine Color Urine Appearance Urine pH Ur Specific [place] Urine Protein Urine Glucose (UA) Urine Ketones Urine Blood Urine Nitrite Urine Bilirubin Urine Urobilinogen Ur Leukocyte Esterase Urine WBC (Auto) Urine RBC (Auto) U Hyaline Cast (Auto) U Epithel Cells (Auto) Urine Bacteria (Auto) Urine Osmolality Ur Random Sodium Nasal Screen MRSA (PCR) 12/25/22 12:19 WBC RBC Hgb Hct MCV MCH MCHC RDW Std Deviation RDW Coeff of Мария Plt Count MPV Immature Gran % (Auto) Neut % (Auto) Lymph % (Auto) [place] % (Auto) Eos % (Auto) Baso % (Auto) Reticulocyte % (Auto) Neut # (Auto) Lymph # (Auto) [place] # (Auto) Eos # (Auto) Baso # (Auto) Reticulocyte # Immature Gran # (Auto) ESR Sodium Potassium Chloride Carbon Dioxide Anion Gap BUN Creatinine Est Cr Clr Drug Dosing Est GFR ( Amer) Est GFR (Non-Af Amer) BUN/Creatinine Ratio Glucose POC Glucose 313 H* Estimat Average Glucose Hemoglobin A1c Calcium Iron TIBC Unsaturated IBC Transferrin % Sat Ferritin Troponin I High Sens C-Reactive Protein Vitamin B12 Folate Urine Color Urine Appearance Urine pH Ur Specific [place] Urine Protein Urine Glucose (UA) Urine Ketones Urine Blood Urine Nitrite Urine Bilirubin Urine Urobilinogen Ur Leukocyte Esterase Urine WBC (Auto) Urine RBC (Auto) U Hyaline Cast (Auto) U Epithel Cells (Auto) Urine Bacteria (Auto) Urine Osmolality Ur Random Sodium Nasal Screen MRSA (PCR) Diagnostic Findings Telemetry personally reviewed: Atrial flutter with reasonable heart rate control on diltiazem drip and after digoxin load yesterday. GI consult reviewed. ECG personally reviewed from 12/25/2022 at 11:45 a.m.: Atrial flutter 92 beats per minute. Findings consistent with acute pericarditis with diffuse ST elevation, more pronounced than previous ECG. CT abdomen/pelvis/chest 12/24/2022: Moderate to large pericardial effusion. Pericardial thickening and enhancement. Small pleural effusions. Diffusely thickened esophageal hammond. Nonspecific inflammation throughout the mediastinum. Marked bladder distention with evidence of chronic outlet obstruction. Nonspecific bilateral perinephric stranding and fluid. Re ctosigmoid fecal retention and moderate constipation. Medications Administered Current Inpatient Medications Acetaminophen (Acetaminophen 325 Mg Tab) 650 mg PO Q4H PRN PRN Reason: Pain or Fever Stop: 01/23/23 11:40 Colchicine (Colchicine 0.6 Mg Tab) 0.6 mg PO BID ZULEMA Stop: 01/24/23 15:34 Dextrose (Dextrose 50% 50 Ml Syringe) 25 - 50 ml IV UD PRN; Protocol PRN Reason: Hypoglycemia Protocol Stop: 01/23/23 11:40 Docusate Sodium (Docusate Sodium 100 Mg Cap) 100 mg PO BID ZULEMA Stop: 01/23/23 20:59 Last Admin: 12/25/22 08:27 Dose: 100 mg Glucagon (Glucagon For Inj 1 Mg Vial) 1 mg SQ UD PRN; Protocol PRN Reason: Hypoglycemia Protocol Stop: 01/23/23 11:40 Glucose (Glucose 40% Gel 15 Gm Tube) 15 - 30 gm PO UD PRN; Protocol PRN Reason: Hypoglycemia Protocol Stop: 01/23/23 11:40 Glucose (Glucose 10 Tab/Tube) 4 - 8 tab PO UD PRN; Protocol PRN Reason: Hypoglycemia Treatment Stop: 01/23/23 11:40 Pantoprazole Sodium 40 mg/ (Syringe) 10 mls @ 5 mls/min IV BID ZULEMA Stop: 01/23/23 20:59 Last Admin: 12/25/22 08:27 Dose: 5 mls/min Lactated Ringer's (Lr) 1,000 mls @ 125 mls/hr IV .Q8H ZULEMA Stop: 12/26/22 03:59 Last Admin: 12/25/22 13:16 Dose: 125 mls/hr Insulin Aspart (Insulin Aspart Per Unit) 0 units SC ACHS ZULEMA Stop: 01/24/23 12:44 Last Admin: 12/25/22 12:53 Dose: 7 units Insulin Aspart (Insulin Aspart Per Unit) 0 units SC 0000,[id number] ZULEMA Stop: 12/26/22 04:01 Insulin Glargine (Lantus Per Unit Charge) 0 units SQ HS ONE; Protocol Stop: 12/25/22 21:01 Metoprolol Tartrate (Metoprolol Tartrate 25 Mg Tab) 25 mg PO Q6H [facility] Stop: 01/24/23 10:59 Last Admin: 12/25/22 12:55 Dose: 25 mg Miscellaneous (Carbohydrates For Hypoglycemia ) 15 - 30 gm PO UD PRN PRN Reason: Hypoglycemia Protocol Stop: 01/23/23 11:40 Miscellaneous Information (Pharmacy Glycemic Mgmt Consult) 1 each N/A UD PRN; Protocol PRN Reason: Consult Stop: 01/24/23 11:59 Polyethylene Glycol (Polyethylene (Miralax) 17 Gm Pack) 17 gm PO BID ZULEMA Stop: 01/23/23 20:59 Last Admin: 12/25/22 08:26 Dose: 17 gm Polyethylene Glycol/Electrolytes (Lavage Solution 4000ml) 1 dose PO Q15M [facility] Stop: 12/27/22 05:00 PG Care Time/CCT Total # of Minutes Spent Total Time Spent with Patient: Total time spent is greater than 50% in coordination of care (as documented) at patient's floor/unit and/or counseling patient: Critical Care Time: Yes Total Critical Care Time: 55 Coding Level of Care Code None Diagnoses Atrial flutter with rapid ventricular response I48.92 Pericardial effusion I31.39 Hypotension I95.9 Anemia D64.9 Anemia type: unspecified type Acute GI bleeding K92.2 Dysphagia R13.10 Acute pericarditis I30.9 Cardiac tamponade I31.4 Additional Codes Critical Care Time - Critical Care Time: Yes ([id number]) Time Spent (min) 55 Comment [id number] (4) Anemia Anemia type: unspecified type Qualified Code(s): D64.9 - Anemia, unspecified
[2022-12-25] MEDS ORDERED: INSULIN ASPART PER UNIT SC ONE (14:45)
--- NOTE | 2022-12-25 14:55 | XCELERA ---
[id number]
--- NOTE | 2022-12-25 15:53 | Critical Care Consultation ---
Date of Consultation December 25, 2022 Assessment & Plan (1) Cardiac tamponade: (2) Acute pericarditis: (3) Atrial flutter with rapid ventricular response: (4) Diabetes: (5) Acute GI bleeding: (6) Dysphagia: Plan Impression: 62-year-old male with prior history of diabetes presents with a flutter, abdominal pain, anemia with heme positive stools, dysphagia, and now pericardial effusion with tamponade seen on echo. He is being taken to the [facility] for pericardiocentesis and potential drain placement. Recommendations: 1. Neurologic: No current issues. Continue to follow clinically. 2. Cardiovascular: Pericardial effusion with nodularity and tamponade physiology on echocardiogram. Status post pericardiocentesis. Await pericardial fluid characterization and cytology as well as cultures. Discussed with cardiology colchicine which will need to be monitored closely in the setting of the patient's renal insufficiency. If he has hemodynamic instability may benefit from additional volume loading. He does have atrial flutter. Will defer to cardiology continue digoxin as well as rate controlling agents. If it continues to be problematic despite control of his pericardial effusion, ablation may be a consideration. Anticoagulation is being held pending the status of his anemia and heme positive stools. 3. Pulmonary: Increasing oxygen requirement. Review of his chest x-ray today demonstrates increasing vascular congestion. We will hold diuretics in the setting of tamponade. Continue supplemental oxygen. If his oxygen requirements increase, application of noninvasive positive pressure ventilation may be appropriate. 4. Heme-onc: Anemia with normal reticulocyte count. B12 and folate are normal. This may be due to acute blood loss although his MCV is borderline low consistent with microcytic. Iron studies showed iron deficiency with a high ferritin. No indication for transfusion currently. Continue to follow. 5. GI: Dysphagia, constipation and abdominal pain. GI notes reviewed. On PPI. Prep for colonoscopy and EGD later this hospitalization when clinically stable. 6. ID: No current issues. Holding antibiotics currently. 7. Endocrine: Poorly controlled diabetes. Hemoglobin A1c of 9.9. Pharmacy consult for glycemic management. May require insulin drip. 8. Renal: Mild renal insufficiency progressed since presentation. He is also hyponatremic. He appears adequately volume resuscitated currently. Continue serial BMPs. We will need to follow kidney function if he receives additional IV contrast and ensure blood pressures are appropriate. Avoid additional nephrotoxic agents. Large distended bladder on CT scan. May benefit from Juarez catheter placement temporarily. 9. Holding GI prophylaxis other than SCDs pending work-up of potential bleeding issues. We will continue to follow patient in the ICU pending resolution of his hemodynamic issues. Thanks for the opportunity participating in the care of this patient. Feel free to contact us with additional questions or concerns Patient is critically ill at this point in time with significant possibility of clinical decline. Total of 45 minutes was spent in evaluation management and coordinating care for this patient. History of Present Illness Attending Physician: Jarred Jackson History of Present Illness Asked by hospitalist to assist in evaluation management this patient with pericardial effusion and early tamponade physiology identified on echocardiogram. History is obtained from discussion with consulting marine engineer as well as review the electronic medical record. The patient is seen and examined although history from the patient is not completely reliable and he is a Bruneian-speaking only patient. He is in preparation to be taken to the [facility] so we did not have time to get a project manager. Patient is a 62-year-old inmate who was admitted to the facility 12/24/2022. Patient was brought to the hospital with complaints of abdominal/colorectal pain. He has not had a bowel movement in quite some time. He was noted to have heme positive stools and also complained of dysphagia. He was found to be in atrial fibrillation/flutter with a heart rate of 150 on arrival to the emergency room. He was given aspirin and normal saline. Initially received adenosine which confirmed flutter. He was then started on a diltiazem drip. Cardiology consultation was obtained. He was started on digoxin. GI consultation was obtained with plans to pursue colonoscopy and EGD later this week. Patient had increasing oxygen requirement today. Repeat echocardiogram was performed which revealed early tamponade physiology and the patient is being taken to the [facility] for pericardiocentesis with possible drain placement. The patient does not report any difficulties breathing. He denies any pain. He has had an increase in his oxygen requirement but appears to be breathing comfortably. No evidence of pulsus paradoxus or hemodynamic instability currently. Allergies Allergy/AdvReac Type Severity Reaction Status Date / Time No Known Allergies Allergy Unverified 12/24/22 13:36 Home Medications Medication Instructions Recorded Confirmed Type amoxicillin 875 mg-potassium 1 tab PO BID #20 tabs 12/12/22 Rx clavulanate 125 mg tablet Patient History Medical History Diabetes Glaucoma Hyperlipidemia Hypertension Latent tuberculosis Social History Smoking Status: Never smoker Preferred Language: Bruneian Communication Ability: romanian Communication Tools: IPad and Language Line Petroleum Production Engineer Petroleum Production Engineer Required: Yes Beliefs That Will Affect Care: Worship Current Living Situation: Other Feels Safe at Home: Yes Assistive Devices: None Review of Systems Review of Systems: Please refer to hospitalist notes for complete details. No additions or deletions Physical Exam Constitutional: WD/WN, vitals as above Neck: trachea midline, no thyromegaly Respiratory: normal respiratory effort, lungs clear to auscultation Cardiovascular: RRR, no murmur, no edema Gastrointestinal (Abdomen): normal bowel sounds, soft, nontender, no hepatosplenomegaly Musculoskeletal: Extremities: extremities normal to inspection Skin: no rashes, warm and dry Neurologic: Nonfocal exam Lymphatic: no cervical lymphadenopathy Results & Data Results & Data ([facility]) Vital Signs (Past 12 Hours) Vital Signs Temp Pulse Resp BP Pulse Ox Pulse Ox O2 Del Method 12/25/22 15:33 36.6 C 80 18 111/74 92 High Flow Nasal Cannula 12/25/22 11:22 37.5 C 84 18 106/65 12/25/22 08:00 96 12/25/22 08:00 Nasal Cannula 12/25/22 08:08 37 C 108 H 20 109/72 Room Air O2 Del Method O2 Flow Rate O2 Flow Rate 12/25/22 15:33 10 12/25/22 11:22 12/25/22 08:00 Nasal Cannula 6 12/25/22 08:00 6 12/25/22 08:08 Critical Care Results & Data Vital Signs (Past 12 Hours) Vital Signs Temp Pulse Resp BP Pulse Ox Pulse Ox O2 Del Method 12/25/22 15:33 36.6 C 80 18 111/74 92 High Flow Nasal Cannula 12/25/22 11:22 37.5 C 84 18 106/65 12/25/22 08:00 96 12/25/22 08:00 Nasal Cannula 12/25/22 08:08 37 C 108 H 20 109/72 Room Air O2 Del Method O2 Flow Rate O2 Flow Rate 12/25/22 15:33 10 12/25/22 11:22 12/25/22 08:00 Nasal Cannula 6 12/25/22 08:00 6 12/25/22 08:08 Lab & Micro Results (Past 24 Hours) RBC 3.47 M/uL (4.70-6.10) L 12/25/22 WBC 7.80 K/ul (4.8-10.8) 12/25/22 Hgb 9.6 g/dl (14.0-18.0) L 12/25/22 Hct 28.0 % (42.0-52.0) L 12/25/22 MCV 80.7 fL (80.0-100.0) 12/25/22 MCH 27.7 pg (25.0-34.0) 12/25/22 MCHC 34.3 g/dL (32.0-36.0) 12/25/22 RDW Standard Deviation 33.9 fL (36.4-46.3) L 12/25/22 RDW Coefficient of Variation 11.7 % (11.5-14.5) 12/25/22 Plt Count 335 K/uL (130-400) 12/25/22 MPV 9.6 fL (9.4-12.4) 12/25/22 Neutrophils (%) (Auto) 75.1 % 12/25/22 Lymphocytes (%) (Auto) 13.5 % 12/25/22 Monocytes # (Auto) 0.83 K/uL (0.11-0.59) H 12/25/22 Eosinophils # (Auto) 0.01 K/uL (0-0.50) 12/25/22 Immature Granulocyte % (Auto) 0.3 % 12/25/22 Neutrophils # (Auto) 5.86 K/uL (1.40-6.50) 12/25/22 Lymphocytes # (Auto) 1.05 K/uL (1.2-3.4) L 12/25/22 Monocytes # (Auto) 0.83 K/uL (0.11-0.59) H 12/25/22 Eosinophils # (Auto) 0.01 K/uL (0-0.50) 12/25/22 Basophils # (Auto) 0.03 K/uL (0-0.2) 12/25/22 Immature Granulocyte # (Auto) 0.02 K/uL (0.01-0.20) 3 Na 125 mmol/L (136-145) L 12/25/22 K 5.1 mmol/L (3.5-5.1) 12/25/22 Cl 94 mmol/L (98-107) L 12/25/22 CO2 22 mmol/L (21-32) 12/25/22 Anion Gap 9 (3-11) 12/25/22 BUN 31 mg/dl (6-23) H 12/25/22 Creatinine 1.87 mg/dl (0.6-1.4) H 12/25/22 Estimated GFR ( Amer) 44.0 ml/min 12/25/22 Estimated GFR (Non-Af Amer) 37.9 ml/min 12/25/22 BUN/Creatinine Ratio 16.6 (10-20) 12/25/22 Glu 263 mg/dl (70-99(Fasting)) H 12/25/22 Ca 8.5 mg/dl (8.5-10.1) 12/25/22 Calcium Level 8.5 mg/dl (8.5-10.1) 12/25/22 07:26 Diagnostic Findings (Past 24 Hours) Abdomen/Pelvis CT 12/24/22 18:46 CT SCAN OF THE CHEST, ABDOMEN, AND PELVIS WITH IV CONTRAST CLINICAL HISTORY: Pleural effusion. Dysphagia. COMPARISON STUDY: Radiographs of the chest, abdomen, and pelvis dated 12/24/2022. TECHNIQUE: Following the IV administration of 85 of Optiray 350, CT scan of the chest, abdomen, and pelvis was performed from the thoracic inlet to the proximal femora. Images are reviewed in the axial, sagittal, and coronal planes. IV contrast was administered without complication. A dose lowering technique was utilized adhering to the principles of ALARA. The examinations are degraded by motion artifact. CT DOSE: 872.42 mGy.cm FINDINGS: CHEST: Thyroid: Imaged portions of the thyroid gland are normal in size and attenuation. Thoracic aorta: The thoracic aorta is normal in caliber and demonstrates 4- vessel variant arch anatomy. No dissection is seen. Pulmonary vasculature: The pulmonary trunk is normal in caliber. There are no filling defects identified in the central pulmonary vessels to indicate pulmonary embolus. Note that this examination was not protocoled for evaluation of the pulmonary arteries. Heart: The heart is mildly enlarged noting a moderate to large pericardial effusion. There is associated pericardial thickening. There are coronary artery calcifications. Lungs and pleural spaces: Evaluation of the lung parenchyma is compromised by motion artifact. The trachea and central airways are clear. There are small pleural effusions with dependent consolidation. Mediastinum: There is infiltration throughout the mediastinum. No significant lymphadenopathy is seen. No pneumomediastinum is identified. Esophagus: The esophageal wall appears diffusely thickened and there is a small hiatal hernia. Anusha: Clear. Axillae: There is no axillary lymphadenopathy. Bony thorax: No lytic or blastic lesions are identified. ABDOMEN AND PELVIS: Liver: The contrast-enhanced liver is normal in size, contour, and attenuation. There is no intrahepatic biliary ductal dilatation. The hepatic veins and portal veins are patent. Periportal edema is observed. Gallbladder: Unremarkable. Spleen: Normal in size and attenuation. Pancreas: Unremarkable. Adrenal glands: Unremarkable. Kidneys: The contrast enhanced kidneys are normal in size and without hydronephrosis. The kidneys enhance symmetrically. There is nonspecific bilateral perinephric stranding and fluid. Abdominal vasculature: The abdominal aorta is normal in course and caliber noting mild atherosclerotic calcification. Bowel: There is rectosigmoid fecal retention and moderate constipation. No bowel obstruction is seen. The appendix is well-visualized and normal. Peritoneum: There is no intraperitoneal free air or abdominal ascites. Lymphadenopathy: None. Pelvic viscera: The prostate gland is enlarged and heterogeneous. The bladder is markedly distended. The wall appears thickened/trabeculated suggesting chronic outlet obstruction. Skeletal structures: No lytic or blastic lesions are seen. IMPRESSION: 1. The heart is enlarged, and there is a moderate to large pericardial effusion. There is associated pericardial thickening and enhancement. Correlate clinically for evidence of pericarditis. This could be further assessed with echocardiography if clinically warranted. 2. Small pleural effusions with dependent consolidation. This could represent atelectasis and/or pneumonia/aspiration pneumonitis. Clinical correlation will be required. 3. The esophageal wall appears diffusely thickened. Correlate clinically for evidence of esophagitis. This could be further assessed with endoscopy if clinically warranted. 4. Nonspecific inflammation is seen throughout the mediastinum. Correlate clinically. 5. Marked bladder distention with evidence of chronic outlet obstruction. 6. There is nonspecific bilateral perinephric stranding and fluid. Correlate with clinical findings and urinalysis. 7. Rectosigmoid fecal retention and moderate constipation.. 8. Additional findings as above. ACT 112: Negative or not required by law. Electronically signed by: Jhonny Hoskins M.D. 12/24/2022 8:[address] 12/24/22 18:46 CT SCAN OF THE CHEST, ABDOMEN, AND PELVIS WITH IV CONTRAST CLINICAL HISTORY: Pleural effusion. Dysphagia. COMPARISON STUDY: Radiographs of the chest, abdomen, and pelvis dated 12/24/2022. TECHNIQUE: Following the IV administration of 85 of Optiray 350, CT scan of the chest, abdomen, and pelvis was performed from the thoracic inlet to the proximal femora. Images are reviewed in the axial, sagittal, and coronal planes. IV contrast was administered without complication. A dose lowering technique was utilized adhering to the principles of ALARA. The examinations are degraded by motion artifact. CT DOSE: 872.42 mGy.cm FINDINGS: CHEST: Thyroid: Imaged portions of the thyroid gland are normal in size and attenuation. Thoracic aorta: The thoracic aorta is normal in caliber and demonstrates 4- vessel variant arch anatomy. No dissection is seen. Pulmonary vasculature: The pulmonary trunk is normal in caliber. There are no filling defects identified in the central pulmonary vessels to indicate pulmonary embolus. Note that this examination was not protocoled for evaluation of the pulmonary arteries. Heart: The heart is mildly enlarged noting a moderate to large pericardial effusion. There is associated pericardial thickening. There are coronary artery calcifications. Lungs and pleural spaces: Evaluation of the lung parenchyma is compromised by motion artifact. The trachea and central airways are clear. There are small pleural effusions with dependent consolidation. Mediastinum: There is infiltration throughout the mediastinum. No significant lymphadenopathy is seen. No pneumomediastinum is identified. Esophagus: The esophageal wall appears diffusely thickened and there is a small hiatal hernia. Anusha: Clear. Axillae: There is no axillary lymphadenopathy. Bony thorax: No lytic or blastic lesions are identified. ABDOMEN AND PELVIS: Liver: The contrast-enhanced liver is normal in size, contour, and attenuation. There is no intrahepatic biliary ductal dilatation. The hepatic veins and portal veins are patent. Periportal edema is observed. Gallbladder: Unremarkable. Spleen: Normal in size and attenuation. Pancreas: Unremarkable. Adrenal glands: Unremarkable. Kidneys: The contrast enhanced kidneys are normal in size and without hydronephrosis. The kidneys enhance symmetrically. There is nonspecific bilateral perinephric stranding and fluid. Abdominal vasculature: The abdominal aorta is normal in course and caliber no ting mild atherosclerotic calcification. Bowel: There is rectosigmoid fecal retention and moderate constipation. No bowel obstruction is seen. The appendix is well-visualized and normal. Peritoneum: There is no intraperitoneal free air or abdominal ascites. Lymphadenopathy: None. Pelvic viscera: The prostate gland is enlarged and heterogeneous. The bladder is markedly distended. The wall appears thickened/trabeculated suggesting chronic outlet obstruction. Skeletal structures: No lytic or blastic lesions are seen. IMPRESSION: 1. The heart is enlarged, and there is a moderate to large pericardial effusion. There is associated pericardial thickening and enhancement. Correlate clinically for evidence of pericarditis. This could be further assessed with echocardiography if clinically warranted. 2. Small pleural effusions with dependent consolidation. This could represent atelectasis and/or pneumonia/aspiration pneumonitis. Clinical correlation will be required. 3. The esophageal wall appears diffusely thickened. Correlate clinically for evidence of esophagitis. This could be further assessed with endoscopy if clinically warranted. 4. Nonspecific inflammation is seen throughout the mediastinum. Correlate clinically. 5. Marked bladder distention with evidence of chronic outlet obstruction. 6. There is nonspecific bilateral perinephric stranding and fluid. Correlate with clinical findings and urinalysis. 7. Rectosigmoid fecal retention and moderate constipation.. 8. Additional findings as above. ACT 112: Negative or not required by law. Electronically signed by: Jhonny Hoskins M.D. 12/24/2022 8:17 PM Chest X-Ray 12/25/22 10:53 XR chest 1V portable HISTORY: 62 years-old Male hypoxia acute hypoxia COMPARISON: Chest CT 12/24/2022 TECHNIQUE: AP view of the chest FINDINGS: Cardiac silhouette is enlarged. Pulmonary vascular congestion. Small pleural effusions with mild bibasilar densities redemonstrated. No pneumothorax. Degenerative changes of the shoulders and spine. IMPRESSION: 1. Cardiomegaly with pulmonary vascular congestion. 2. Small pleural effusions with mild bibasilar densities suggestive of atelectasis, similar to yesterday's exam. ACT 112: Negative or not required by law. The above report was generated using voice recognition software. It may contain grammatical, syntax or spelling errors. Electronically signed by: Sanjiv Pitts M.D. 12/25/2022 11:38 AM I & O Totals 24 Hours 12/24/22 12/25/22 12/26/22 06:59 06:59 06:59 Intake Total 2429.084 / 2429.084 126.249 / 126.249 Output Total Balance 2428.084 / 2428.084 126.249 / 126.249 Cumulative 12/24/22 08:43 thru 12/25/22 15:15 Intake Total 2555.333 Output Total 1 Balance 2554.333 RT Ventilator Mngmt (Last Documented) Ventilator Ordered Settings Respiratory Rate 18 12/25/22 15:33 Ventilator - PT Measurements Respiratory Rate 18 Coding Level of Care Code Critical Care 1st 30-74 mins Diagnoses Cardiac tamponade I31.4 Acute pericarditis I30.9 Atrial flutter with rapid ventricular response I48.92 Diabetes E11.9 Acute GI bleeding K92.2 Dysphagia R13.10
[2022-12-25] MEDS ORDERED: fentaNYL citrate 100 MCG/2 ML VIAL ONE (16:06)
[2022-12-25] MEDS ORDERED: MIDAZOLAM HCL 1 MG/ML 2ML VIAL ONE (16:06)
--- NOTE | 2022-12-25 17:27 | Cardiac Catheterization ---
[facility] Data: Gauge Maker Cardiac Status Clinical evaluation leading to the procedure CAD Presenation: Sx unlikely to be ischemic Diagnostic Physicians Name: Poncho Lemus MD Closure Device Recommendations: Management Recommendatons Cardiac Cath Procedure Full Procedure Date December 25, 2022 Pre-Procedure Diagnosis Pre-Procedure Diagnosis: Cardiothoracic Symptom (Pericardial effusion/Early tamponade) AUC Score AUC Score: 7 Post-Procedure Diagnosis Post-Procedure Diagnosis: Cardiothoracic Finding (Pericardial effusion, elevated intrapericardial pressures) Procedure(s) Performed Procedure(s) Performed: Pericardiocentesis Edge Sander Poncho Lemus MD Corn Detasseler(s) Ginr Estimated Blood Loss Estimated Blood Loss: pericardial fluid Medication(s) Medication(s): Fentanyl, Lidocaine 1% and Versed Summary of Findings PERICARDIOCENTESIS Indication: Unexplained moderate to large pericardial effusion with clinical/echocardiographic signs of tamponade Procedure: -- Moderate sedation 7634-3437 - fentanyl/versed -- Local anesthesia with lidocaine -- Subxiphoid approach under ultrasound guidance -- Pericardial space accessed with micropuncture needle -- Pericardial position confirmed with bubble study -- 6Fr sheath placed into pericardial space -- 6Fr pigtail catheter placed into pericardial space -- 320 cc of serosanguineous fluid removed. -- Post procedure echo revealed only trace residual pericardial fluid -- Sheath/pigtail catheter sutured into place -- Opening pericardial pressure 12. Post procedure pericardial pressure 4. Summary: 1. Successful pericardiocentesis with removal of 320ml of serosanguineous fluid. Recommendations: Follow-up cell counts, cultures and cytology Continue colchicine Drain to gravity overnight Repeat limited echo in AM. Hemodynamics Rest Ao:: -- Final Ao: -- LV: -- Recommendations Recommendations: Management Recommendatons Specimens Specimens: None Radiation Exposure (mGy) 92 Contrast (mls) -- Drains Drains: pericardial Anesthesia moderate [id number] Procedural Complication(s) None Disposition ICU I attest to the content of the Intraoperative Record and any orders documented therein. Any exceptions are noted below. [facility] Card Cath Procedure Codes Therapeutic Services & Ancillary Procedure 1: Cardiovascular Tx and Anc Procedures: 97037 Pericardiocentesis w / Imaging Moderate Sedation Procedure 1: Sedation/Anesthesia: 02725 Mod Sedation by the same physician;Init15 Min Child Age 5 & Up Procedure 2: Sedation/Anesthesia: 14092 Mod Sedation by the same physician; Ea [id number] Minutes PG Care Time/CCT Total # of Minutes Spent Total Time Spent with Patient: Total time spent is greater than 50% in coordination of care (as documented) at patient's floor/unit and/or counseling patient:
--- NOTE | 2022-12-25 17:37 | XCELERA ---
[id number]
[2022-12-25] MEDS: COLCHICINE 0.6 MG TAB PO SCH ×2 (18:06→20:04)
--- NOTE | 2022-12-25 20:53 | Progress Note ---
Date of Service December 25, 2022 Assessment & Plan (1) Cardiac tamponade: Plan: 62 yo male admitted with atrial flutter, however during his hospital stay, developed cardiac tamponade with worsening O2 saturation despite increasing O2 supplementation Patient will have a cardiac cath with likely pericardiocentesis will transfer to ICU (2) Atrial flutter with rapid ventricular response: Plan: Discontineud diltiazem, dig. Now on metoprolol 25 mg PO q6h will like to cardovert patient, but will need to be on heparin drip; however due to his possible GI bleed, will await GI scopes before proceeding. [id number], will defer heparin IV drip on admission due to possibility of acute GI bleed consult cardiology (3) Abnormal EKG: Plan: No chest pain or shortness of breath to suggest ACS (4) Microcytic anemia: Plan: Fecal occult blood positive in the emergency room Famotidine IV 20 mg and pantoprazole IV 40 mg given in the emergency room Continue pantoprazole 40 mg IV twice daily Plan to do EGD and colonoscopy on 12/27 (5) Dysphagia: Plan: With solid foods Recommend EGD inpatient or outpatient depending on clinical course (6) Diabetes: Plan: will consult glycemic control. (7) Hypertension: Plan: Stop lisinopril. Reportedly not taking this for the last week due to low blood pressure - ? GI bleed Plan VTE Prophylaxis - chemical prophylaxis deferred due to possible acute GI bleed Admission and Anticipated Discharge Date Admission Date: December 24, 2022 Subjective 62 yo male reports feeling short of breath. He reportsno improvement with supplemental oxygen Review of Systems Review of Systems: All systems reviewed & are unremarkable except as noted in HPI & below Physical Exam Constitutional: WD/WN, vitals as above Eyes: PERRL, conjunctivae normal, anicteric sclerae EOM intact bilaterally Respiratory: normal respiratory effort, lungs clear to auscultation Cardiovascular: Rate/Rhythm: regular rhythm and + tachycardic Heart Sounds: no murmur Extremities: normal capillary refill; no calf tenderness and no pedal edema Gastrointestinal (Abdomen): normal bowel sounds, soft, nontender, no hepatosplenomegaly Musculoskeletal: no cyanosis or clubbing, extremities motor strength 5/5 Skin: no rashes, warm and dry Neurologic: moves all extremities and awake; not confused Psychiatric: A+Ox3, euthymic affect Genitourinary: no CVA tenderness Results & Data ([facility] [place]) Vital Signs (Past 12 Hours) Vital Signs Temp Pulse Pulse Resp BP BP Pulse Ox 12/25/22 20:00 37 C 103 H 15 115/72 93 12/25/22 19:00 102 H 16 127/93 93 12/25/22 20:00 12/25/22 14:41 75 12/25/22 18:00 88 18 87 L 12/25/22 17:30 99 H 21 93 12/25/22 17:15 100 H 20 94 12/25/22 16:09 125 H 12/25/22 15:33 36.6 C 80 18 111/74 92 12/25/22 11:22 37.5 C 84 18 106/65 O2 Del Method O2 Flow Rate 12/25/22 20:00 High Flow Nasal Cannula 6 12/25/22 19:00 High Flow Nasal Cannula 6 12/25/22 20:00 High Flow Nasal Cannula 6 12/25/22 14:41 12/25/22 18:00 12/25/22 17:30 High Flow Nasal Cannula 12/25/22 17:15 High Flow Nasal Cannula 12/25/22 16:09 12/25/22 15:33 High Flow Nasal Cannula 10 12/25/22 11:22 PG Care Time/CCT Total # of Minutes Spent Total Time Spent with Patient: Total time spent is greater than 50% in coordination of care (as documented) at patient's floor/unit and/or counseling patient: Coding Level of Care Code 72878 SUB INP/OBS CARE 3/50MIN Diagnoses Cardiac tamponade I31.4 Atrial flutter with rapid ventricular response I48.92 Abnormal EKG R94.31 Microcytic anemia D50.9 Dysphagia R13.10 Diabetes E11.9 Hypertension I10
[2022-12-25 21:05] LABS: BUN Creatinine Ratio 19.7 (10-20); Calcium 8.2 mg/dl (8.5-10.1); Creatinine Clr Calc Pharmacy 39.5 ml/min; Est GFR (African American) 39.8 ml/min; Est GFR (Non-African American) 34.4 ml/min; Potassium 4.7 mmol/L (3.5-5.1)
[2022-12-25] MEDS: SODIUM CHLORIDE 0.9% 1000ML 1,000 ML IV SCH (21:37)
[2022-12-25 21:43] LABS: Hematocrit (blood only) 25.9 % (42.0-52.0); Hemoglobin 8.9 g/dl (14.0-18.0)
[2022-12-26] MEDS: INSULIN ASPART PER UNIT SC SCH ×6 (00:35→21:08)
[2022-12-26] MEDS: METOPROLOL TARTRATE 25 MG TAB PO SCH ×4 (04:26→22:56)
[2022-12-26 04:48] LABS: Basophils # (auto) 0.03 K/uL (0-0.2); Basophils % (auto) 0.4 %; Eosinophils # (auto) 0.16 K/uL (0-0.50); Eosinophils % (auto) 2.1 %; Hematocrit (blood only) 26.2 % (42.0-52.0); Hemoglobin 9.1 g/dl (14.0-18.0); Immature Granulocytes # (auto) 0.02 K/uL (0.01-0.20); Immature Granulocytes % (auto) 0.3 %; Lymphocytes # (auto) 1.46 K/uL (1.2-3.4); Lymphocytes % (auto) 19.2 %; Mean Corpuscular Hemoglobin 27.5 pg (25.0-34.0); Mean Corpuscular Hgb Conc 34.7 g/dL (32.0-36.0); Mean Corpuscular Volume 79.2 fL (80.0-100.0); Mean Platelet Volume 9.4 fL (9.4-12.4); Monocytes # (auto) 0.67 K/uL (0.11-0.59); Monocytes % (auto) 8.8 %; Neutrophils # (auto) 5.28 K/uL (1.40-6.50); Neutrophils % (auto) 69.2 %; Platelet Count 295 K/uL (130-400); RDW Coefficient of Variation 11.6 % (11.5-14.5); RDW Standard Deviation 33.3 fL (36.4-46.3); Red Blood Count 3.31 M/uL (4.70-6.10); White Blood Count 7.62 K/ul (4.8-10.8)
[2022-12-26 05:10] LABS: BUN Creatinine Ratio 20.8 (10-20); Creatinine Clr Calc Pharmacy 47.8 ml/min; Est GFR (African American) 50.1 ml/min; Est GFR (Non-African American) 43.2 ml/min
--- NOTE | 2022-12-26 05:24 | Electrocardiogram Report ---
Test Reason : Blood Pressure : / mmHG Vent. Rate : 092 BPM Atrial Rate : 312 BPM P-R Int : 000 ms QRS Dur : 074 ms QT Int : 320 ms P-R-T Axes : -85 054 053 degrees QTc Int : 395 ms Atrial flutter with variable A-V block Acute pericarditis Abnormal ECG When compared with ECG of 24-DEC-2022 09:09, ST more elevated in Inferior leads ST more elevated in Lateral leads Confirmed by Juancarlos Stephenson ([id number]) on 12/26/2022 5:23:44 AM Referred By: Umesh Leavitt Confirmed By:Juancarlos Stephenson
[2022-12-26] MEDS: SODIUM CHLORIDE 0.9% 1000ML 1,000 ML IV SCH (05:46)
--- NOTE | 2022-12-26 06:59 | Ultrasound Report ---
ULTRASOUND BILATERAL LOWER EXTREMITY VENOUS CLINICAL HISTORY: Hypoxia COMPARISON STUDY: No priors. TECHNIQUE: Real-time, grayscale, and color Doppler sonography of the deep veins of the right and left lower extremity was performed from the inguinal crease to the calf. Compression and augmentation wer e utilized. FINDINGS: Right lower extremity: There is deep venous thrombosis identified in the right calf within the perone al vein. The remaining calf vessels are patent. The common femoral, superficial femoral, and poplitea l veins are patent and normally compressible. The greater saphenous vein and the profunda femoris vei n at the junction with the common femoral vein are clear. Left lower extremity: There is no sonographic evidence of deep venous thrombosis in the left lower ex tremity. The common femoral, superficial femoral, and popliteal veins are patent and normally jose carlos sible. The greater saphenous vein and the profunda femoris vein at the junction with the common femor al vein are clear. The visualized calf veins are patent. IMPRESSION: 1. Deep venous thrombosis is seen within the right calf within the peroneal vein. 2. The remaining deep veins of both legs appear clear. ACT 112: Negative or not required by law. Electronically signed by: Jhonny Hoskins M.D. 12/26/2022 6:57 AM
--- NOTE | 2022-12-26 08:11 | Critical Care Progress Note ---
Date of Service December 26, 2022 Assessment & Plan (1) DVT (deep venous thrombosis): (2) Cardiac tamponade: (3) Acute pericarditis: (4) Atrial flutter with rapid ventricular response: (5) Acute GI bleeding: (6) Diabetes: Plan Reason Critically Ill: 62-year-old male with history of diabetes presenting with a flutter, heme positive stools, dysphagia, pericardial effusion with tamponade physiology status post pericardial drain requiring close hemodynamic monitoring. NEURO - * CAM ICU: NEGATIVE CARDIAC/VASCULAR - * Pericardial effusion with tamponade physiology status post pericardiocentesis: * 160 mL drainage over night. * Patient reports feeling better this morning. * Defer further drainage to cardiology. * Continue Colchicine for now. * Hold on NSAIDs in the setting of ??GIB in a patient now requiring Heparin gtt. * Heparin gtt started in the setting of new DVT Dx w/ ongoing a. flutter rhythm. * Atrial flutter with rapid ventricular response: * Remains w/ rates in the 100s-120s. * Lopressor being titrated up by cardiology. * Previously on Digoxin. * Will defer to cardiology for ongoing management/rate control. * Hemodynamics have improved. * Will hold on IVF for now given worsening hypoxia and bibasilar rales on exam. This certainly may be more related to decreased forward flow in the setting of a. flutter w/ rapid rates. Hopefully better rate control w/ improve this as well. Certainly a delicate balance in a patient w/ pericardial effusion and likely degree of compensatory tachycarida. * Monitor on telemetry. RESPIRATORY - * Hypoxia: * Was requiring as high as 8L overnight. * Bibasilar rales on exam. * Will add CXR. * Discussed utility of incentive spirometry. * Patient in no distress. No need for PPV now, but may benefit if s/s worsen. GI/NUTRITION - * Heme Positive Stools: * Continue PPI. * Bowel prep ordered by GI for tonight. * Planned EGD/Colonoscopy tomorrow. * Dysphagia: * EGD per GI * Prophylaxis: Protonix BID RENAL/LYTES - * LOIDA: * Improving. * CT findings of marked bladder distention with evidence of chronic outlet obstruction and nonspecific perinephritic stranding. * Question component of obstructive uropathy. * Patient making large quantities of urine, but admittedly does not void often. * Held IVF for now. * Will monitor I&Os closely and regular BMPs. - * Strict I&Os. ENDO - * Poorly controlled DM: * Doing betting w/ ISS since arriving in the unit. * BSGs per unit protocol. ISS --> gtt per unit policy. * Appreciate pharmacy management. HEME - * Anemia: * Likely mixed picture (blood loss/Iron deficiency). * Monitor for need for transfusion s/p initiation of Heparin gtt. * DVT of RIGHT Peroneal Vein: * Will start Heparin gtt (low dose, no bolus). * Patient now w/ multiple risk factors for worsening thromboembolic processes in the setting of a. flutter and new DVT Dx. * Discussed treatment with the patient (via nut dehydrator operator - Gorge #[id number]). Patient agrees with proceeding with Heparin gtt. ID - * Does not appear to have infectious component at this time. LINES/IV ACCESS - * PIVs x2 * Pericardial drain x2 DVT PROPHYLAXIS - * Heparin gtt I have personally spent 55 minutes of critical care time in the direct management of this patient. This is a life/limb threatening event. This includes time spent evaluating patient, direct bedside care, chart review, placing orders, interpretation of diagnostic studies, discussion with consultants, patient, and family members, as well as other required patient management activities. This time is exclusive of all separately billable procedures, and teaching time and separate from and in addition to any other critical care service time. Thank you for allowing us to participate in the care of this patient. Please refer to my attending physician's documentation for any further recommendations. Admission and Anticipated Discharge Date Admission Date: December 24, 2022 Supervising Physician Co-Signing Physician Notes Patient seen and examined. Discussed on multidisciplinary rounds with bedside critical care nurse and with critical care JTET. Agree with assessment plan as noted. Continue to monitor in the ICU while pericardial drains are in place. Defer GI evaluation to gastroenterology but from my perspective the patient is stable to undergo sedation for endoscopy. He has been started on a heparin drip for his atrial arrhythmia as well as the lower extremity DVT. This can be stopped 4 hours prior to any invasive procedures. Defer to cardiology long-term management of his A-fib/flutter. Continue beta-jose alfredo for now. Will defer to cardiology decision regarding digoxin and other antiarrhythmics. Subjective Patient was seen and evaluated at bedside today. Conversation was facilitated utilizing [employer] all support technology ([employer] #[id number]). Patient reports that he feels approximately 70% better today. He states that the procedure seem to help him quite a bit yesterday. He denies complaints of shortness of breath or chest discomfort. He denies any headaches, dizziness, lightheadedness, nausea, vomiting, or abdominal discomfort. He has no questions. He was updated on the finding of DVT to the RIGHT lower extremity. Review of Systems Review of Systems: A complete 10 point review of systems was reviewed with the patient with pertinent positives and negatives as per history of present illness. All else were negative. Physical Exam Physical Exam: VITAL SIGNS - Vital signs and nursing notes were reviewed. GENERAL - 62-year-old male appearing his stated age who is in no acute distress. Communicates well with provider and answers questions appropriately. EYES - Sclera anicteric. LUNGS - Chest wall symmetric without accessory muscle use, intercostals retractions, or central cyanosis. Bibasilar rales. CARDIAC - RRR with S1/S2. No murmur, rubs, or gallops appreciated. Subxiphoid drains in place. ABDOMEN - Abdominal contour flat without pulsations or visible masses. BS normoactive all four quadrants. No tenderness, palpable masses, hepatosplenomegaly, or ascites noted. EXTREMITIES - No clubbing or peripheral cyanosis. No pretibial edema present. +3/5 radial and dorsalis pedis pulses palpated throughout. +5/5 strength noted in UE/LE bilaterally. NEUROLOGIC - Cranial nerves II through XII grossly intact. Sensory intact to light touch throughout. PSYCH - A&Ox3 and cooperates fully with examiner. Pt is very pleasant and interacts well with examiner (utilizing nut dehydrator operator). Results & Data Results & Data ([facility]) Vital Signs (Past 12 Hours) Vital Signs Temp Pulse Resp BP Pulse Ox O2 Del Method O2 Flow Rate 12/26/22 07:00 107 H 22 116/81 96 Nasal Cannula, High Flow Nasal Cannula 8 12/26/22 06:00 120 H 21 107/76 97 High Flow Nasal Cannula 8 12/26/22 05:00 120 H 14 110/82 96 High Flow Nasal Cannula 8 12/26/22 04:00 36.9 C 122 H 14 100/81 94 High Flow Nasal Cannula 8 12/26/22 03:00 111 H 18 122/73 93 High Flow Nasal Cannula 8 12/26/22 02:00 114 H 15 111/75 95 High Flow Nasal Cannula 8 12/26/22 01:00 91 H 16 103/77 92 High Flow Nasal Cannula 8 12/26/22 00:00 36.8 C 100 H 20 124/77 93 High Flow Nasal Cannula 8 12/25/22 23:00 111 H 17 132/72 93 High Flow Nasal Cannula 8 12/25/22 22:00 88 15 113/63 93 High Flow Nasal Cannula 8 12/25/22 21:00 85 17 126/74 94 High Flow Nasal Cannula 8 Coding Level of Care Code Critical Care 1st 30-74 mins Diagnoses DVT (deep venous thrombosis) I82.409 Cardiac tamponade I31.4 Acute pericarditis I30.9 Atrial flutter with rapid ventricular response I48.92 Acute GI bleeding K92.2 Diabetes E11.9
[2022-12-26] MEDS ORDERED: Heparin IV Adult Wt-Based Low-Dose *NO* Bolus Protocol IV STA (08:26)
[2022-12-26] MEDS: POLYETHYLENE (MIRALAX) 17 GM PACK PO SCH ×2 (08:49→19:53)
[2022-12-26] MEDS: DOCUSATE SODIUM 100 MG CAP PO SCH ×2 (08:54→19:53)
[2022-12-26] MEDS: COLCHICINE 0.6 MG TAB PO SCH ×2 (08:55→20:48)
[2022-12-26] MEDS: PANTOprazole 40 MG in SYRINGE 0 ML IV SCH ×2 (08:55→20:48)
[2022-12-26] MEDS: HEPARIN SODIUM/DEXTROSE 25,000 UNITS/500 ML BAG IV SCH (09:05)
[2022-12-26 09:31] LABS: INR 1.2 (0.9-1.1); Partial Thromboplastin Ratio 1.2; Partial Thromboplastin Time 32.2 Seconds (21.0-31.0); Prothrombin Time 13.1 Seconds (9.0-12.0)
--- NOTE | 2022-12-26 09:53 | XRay Report ---
XR chest 1V portable CLINICAL HISTORY: Hypoxia. COMPARISON STUDY: Chest CT December 24, 2022. Chest radiograph December 25, 2022. FINDINGS: Enlargement of the cardiac silhouette is stable to slightly improved since prior exam. Pulm onary vascular congestion has improved. Small left and trace right pleural effusions are noted. There is no pneumothorax. Mild bibasilar opacities persist. IMPRESSION: 1. Interval improvement in pulmonary vascular congestion. 2. Slight increase in size of a small left pleural effusion. Persistent bibasilar opacities. ACT 112: Negative or not required by law. Electronically signed by: Mamadou Bauer M.D. 12/26/2022 9:51 AM
--- NOTE | 2022-12-26 09:58 | Communication Note ---
Date of Service: December 26, 2022 Discussed GI plans with Tj Kidd PA-C this morning. Patient a pericardiocentesis on 12/25. Cardiology is awaiting work-up for GI bleeding prior to any consideration of cardioversion for his Afib. He was found to have a DVT and has been started on IV heparin gtt. Intensivists are ok proceeding with endoscopic evaluation tomorrow. Will prep patient today and if clinically stable and OK with anesthesiology, will plan to 12/27/22 with EGD & colonoscopy.
--- NOTE | 2022-12-26 10:01 | Pharmacy Report ---
Pharmacy Glycemic Short Note 2 - Date of Service December 26, 2022 - Glycemic Short BSG Results (Last 24 hours): 12/25/22 12/25/22 12/25/22 12:19 14:31 14:33 Glucose POC Glucose 313 H* 432 H* 404 H* 12/25/22 12/25/22 12/25/22 18:14 20:13 20:35 Glucose 118 H POC Glucose 174 H 112 H 12/25/22 12/26/22 12/26/22 23:05 04:31 04:33 Glucose 105 H POC Glucose 89 106 H 12/26/22 07:33 Glucose POC Glucose 97 OUTPATIENT ANTIDIABETIC REGIMEN: * Humulin R SSI * Metformin 1 g PO BIDM * HbA1c: 9.9% (12/25/22) ASSESSMENT: 12/26: * Patient received a total of 51 units of insulin yesterday, 20 units basal + 31 units bolus. BSGs were [id number] mg/dL. * Underwent pericardiocentesis yesterday. Diet changed to full liquid today. Will complete bowel prep today and have colonoscopy tomorrow morning. * Found to have RLE DVT for which a heparin drip has been started. * Fasting BSG was 97 mg/dL this AM. Given full liquid diet and NPO status tomorrow, will hold off on any further basal insulin at this time. No change to Novolog. 12/25: * Patient is a 62 year old male with very poorly controlled T2DM on SSI and metformin * Presented to ED on 12/24/22 from care home for evaluation of acute abdominal pain and possible acute AL * Subsequently found to have Afib w/ RVR - started on diltiazem gtt (mixed in dextrose) * Pharmacy consulted ~lunchtime on 12/25 due to persistent hyperglycemia (>300 mg/dL at lunch) * Prior regimen clearly inadequate with correctional insulin only * Will add basal, carb coverage, and a one-time IV insulin bolus PLAN FOR INPATIENT GLYCEMIC CONTROL: * Hold outpatient oral diabetes medications * Basal insulin * None * Bolus insulin * NovoLog per scale ACHS or Q6hrs while NPO * Goal Range: Low 110 mg/dL - High 140 mg/dL * Correction Factor: 20 mg/dL/unit * Nutritional / Prandial insulin per carb ratio of 1 unit per 7 grams CHO consumed
[2022-12-26] MEDS ORDERED: FUROSEMIDE INJ 20 MG/2 ML VIAL IV ONE (11:19)
--- NOTE | 2022-12-26 11:31 | Cardiology Progress Note ---
Date of Service December 26, 2022 Assessment & Plan (1) Pericardial effusion: Plan: Post pericardiocentesis 12/25 2. Atrial flutter with RVR 3. Severe LVH 4. LOIDA, hyponatremia 5. Right lower extremity below the knee acute DVT 6. Iron deficiency anemia 7. Dysphagia/possible esophagitis 8. Type 2 diabetes 9. Urinary tract obstruction Hemodynamically stable overnight Minimal residual pericardial fluid on echo. Pericardial drainage reduced. Remains in atrial flutter with RVR Pulmonary congestion on exam and pleural effusion on echo Improving renal function post Juarez/pericardiocentesis Will leave drain in place today. Assuming drainage <50 mL / 8 hours will remove tomorrow Continue colchicine Given metoprolol this morning. Can titrate up as BP allows. For now okay with heart rates in the 110s to 120s With atrial flutter will likely require cardioversion at some pointpossible ROSSI cardioversion on Saturday Agree with anticoagulation Agree with gentle diuresis Follow-up pericardial fluid studies, SPEP/UPEP. Appreciate ICU and hospital medicine care. We will continue to follow. Admission and Anticipated Discharge Date Admission Date: December 24, 2022 Subjective Patient reports feeling better than yesterday post pericardiocentesis. Denies chest pain or shortness of breath. Does report bilateral calf pain. No other new concerns. Telemetry reviewedremains in atrial flutter, heart rates up to the 140s this morning Venous duplexnotable for right peroneal vein DVT Repeat echo todaytrivial pericardial effusion. No RV collapse. New left pleural effusion Pericardial drain [id number] mL overnight, additional 30 mL this morning I/O yesterday 2.8/1.4. Positive >3.5 L over admission Review of Systems Review of Systems: All systems reviewed & are unremarkable except as noted in HPI & below Physical Exam Physical Exam: General: Comfortable HEENT: Sclerae anicteric Lungs: Clear anteriorly, fine crackles at bases bilaterally Cardiac: Irregular irregular, tachycardic, no murmurs Vascular: 2+ radial, bilaterally Abdomen: Soft, nontender Extremities: Well perfused, mild tenderness to right calf flexion Neuro: Nonfocal Psych: Alert orient x3, normal affect and mood Results & Data ([facility]) Vital Signs (Past 12 Hours) Vital Signs Temp Pulse Resp BP Pulse Ox Pulse Ox O2 Del Method 12/26/22 11:00 128 H 13 105/76 93 High Flow Nasal Cannula 12/26/22 10:00 132 H 20 111/80 94 Nasal Cannula, High Flow Nasal Cannula 12/26/22 09:00 138 H 20 92/69 L 12/26/22 08:00 119 H 17 120/70 86 L 12/26/22 10:24 High Flow Nasal Cannula 12/26/22 08:00 98.1 F 12/26/22 08:00 98 12/26/22 07:00 107 H 22 116/81 96 Nasal Cannula, High Flow Nasal Cannula 12/26/22 06:00 120 H 21 107/76 97 High Flow Nasal Cannula 12/26/22 05:00 120 H 14 110/82 96 High Flow Nasal Cannula 12/26/22 04:00 98.4 F 122 H 14 100/81 94 High Flow Nasal Cannula 12/26/22 03:00 111 H 18 122/73 93 High Flow Nasal Cannula 12/26/22 02:00 114 H 15 111/75 95 High Flow Nasal Cannula 12/26/22 01:00 91 H 16 103/77 92 High Flow Nasal Cannula 12/26/22 00:00 98.2 F 100 H 20 124/77 93 High Flow Nasal Cannula O2 Del Method O2 Flow Rate 12/26/22 11:00 4 12/26/22 10:00 4 12/26/22 09:00 12/26/22 08:00 12/26/22 10:24 4 12/26/22 08:00 12/26/22 08:00 Nasal Cannula, High Flow Nasal Cannula 12/26/22 07:00 8 12/26/22 06:00 8 12/26/22 05:00 8 12/26/22 04:00 8 12/26/22 03:00 8 12/26/22 02:00 8 12/26/22 01:00 8 12/26/22 00:00 8 PG Care Time/CCT Total # of Minutes Spent Total Time Spent with Patient: Total time spent is greater than 50% in coordination of care (as documented) at patient's floor/unit and/or counseling patient: Coding Level of Care Code 13421 SUB INP/OBS CARE 3/50MIN Diagnoses Pericardial effusion I31.39
[2022-12-26 16:42] LABS: Partial Thromboplastin Ratio 1.1; Partial Thromboplastin Time 31.2 Seconds (21.0-31.0)
[2022-12-26] MEDS ORDERED: HEPARIN SOD (PORCINE) 1000 UNIT/ML IV ONE (17:30)
--- NOTE | 2022-12-26 18:24 | XCELERA ---
[id number]
[2022-12-26] MEDS: LAVAGE SOLUTION 4000ML PO SCH ×6 (18:36→19:57)
--- NOTE | 2022-12-26 22:22 | Electrocardiogram Report ---
Test Reason : Blood Pressure : / mmHG Vent. Rate : 118 BPM Atrial Rate : 300 BPM P-R Int : 000 ms QRS Dur : 078 ms QT Int : 314 ms P-R-T Axes : 000 053 054 degrees QTc Int : 440 ms Atrial flutter with variable A-V block Acute pericarditis Abnormal ECG When compared with ECG of 25-DEC-2022 11:45, ST less elevated in Inferior leads ST less elevated in Anterior leads Confirmed by Juancarlos Stephenson ([id number]) on 12/26/2022 10:22:55 PM Referred By: Umesh Leavitt Confirmed By:Juancarlos Stephenson
--- NOTE | 2022-12-26 22:38 | Hospitalist Progress Note ---
Date of Service December 26, 2022 Assessment & Plan (1) Cardiac tamponade: Plan: 62 yo male admitted with atrial flutter, however during his hospital stay, developed cardiac tamponade with worsening O2 saturation despite increasing O2 supplementation S/P pericardiocentesis will remain in ICU ovenight (2) Atrial flutter with rapid ventricular response: Plan: Discontineud diltiazem, dig. Now on metoprolol 25 mg PO q6h will like to cardovert patient, but will need to be on heparin drip; however due to his possible GI bleed, will await GI scopes before proceeding. [id number], will defer heparin IV drip on admission due to possibility of acute GI bleed consult cardiology appreciate input (3) Abnormal EKG: Plan: No chest pain or shortness of breath to suggest ACS (4) Microcytic anemia: Plan: Fecal occult blood positive in the emergency room Famotidine IV 20 mg and pantoprazole IV 40 mg given in the emergency room Continue pantoprazole 40 mg IV twice daily Plan to do EGD and colonoscopy on 12/27 (5) Dysphagia: Plan: With solid foods Recommend EGD inpatient or outpatient depending on clinical course (6) Diabetes: Plan: will consult glycemic control. (7) Hypertension: Plan: Stop lisinopril. Reportedly not taking this for the last week due to low blood pressure - ? GI bleed Plan VTE Prophylaxis - chemical prophylaxis deferred due to possible acute GI bleed Admission and Anticipated Discharge Date Admission Date: December 24, 2022 Subjective Patient reports feeling night and day improved from before. He states he is less short of breath. Review of Systems Review of Systems: All systems reviewed & are unremarkable except as noted in HPI & below Physical Exam Physical Exam: Constitutional: WD/WN, vitals as above Eyes: PERRL, conjunctivae normal, anicteric sclerae EOM intact bilaterally Respiratory: normal respiratory effort, lungs clear to auscultation Cardiovascular: Rate/Rhythm: regular rhythm and + tachycardic Heart Sounds: no murmur Extremities: normal capillary refill; no calf tenderness and no pedal edema Gastrointestinal (Abdomen): normal bowel sounds, soft, nontender, no hepatosplenomegaly Musculoskeletal: no cyanosis or clubbing, extremities motor strength 5/5 Skin: no rashes, warm and dry Neurologic: moves all extremities and awake; not confused Psychiatric: A+Ox3, euthymic affect Genitourinary: no CVA tenderness Results & Data Results & Data ([facility]) Vital Signs (Past 12 Hours) Vital Signs Temp Pulse Resp BP Pulse Ox O2 Del Method O2 Flow Rate 12/26/22 22:00 103 H 19 106/80 95 High Flow Nasal Cannula 2 12/26/22 21:00 114 H 22 137/83 12/26/22 20:00 36.9 C 116 H 21 132/82 94 High Flow Nasal Cannula 2 12/26/22 20:00 High Flow Nasal Cannula 2 12/26/22 19:00 112 H 23 112/72 94 High Flow Nasal Cannula 2 12/26/22 18:00 110 H 18 108/73 96 Nasal Cannula 3 12/26/22 17:00 115 H 20 107/69 95 Nasal Cannula 3 12/26/22 16:00 36.3 C L 112 H 18 124/84 94 Nasal Cannula 2 12/26/22 15:00 108 H 16 119/77 93 Nasal Cannula 3 12/26/22 14:00 110 H 15 109/75 95 Nasal Cannula 3 12/26/22 13:00 113 H 20 124/77 93 High Flow Nasal Cannula 3 12/26/22 12:00 114 H 18 129/75 96 High Flow Nasal Cannula 3 12/26/22 12:09 36.5 C 12/26/22 11:00 128 H 13 105/76 93 High Flow Nasal Cannula 4 PG Care Time/CCT Total # of Minutes Spent Total Time Spent with Patient: Total time spent is greater than 50% in coordination of care (as documented) at patient's floor/unit and/or counseling patient: Coding Level of Care Code 37755 SUB INP/OBS CARE 2/35MIN Diagnoses Cardiac tamponade I31.4 Atrial flutter with rapid ventricular response I48.92 Abnormal EKG R94.31 Microcytic anemia D50.9 Dysphagia R13.10 Diabetes E11.9 Hypertension I10
[2022-12-27 00:52] LABS: Partial Thromboplastin Ratio 1.3
[2022-12-27] MEDS ORDERED: HEPARIN SOD (PORCINE) 1000 UNIT/ML IV ONE (01:30)
[2022-12-27] MEDS: LAVAGE SOLUTION 4000ML PO SCH ×9 (03:04→05:08)
[2022-12-27] MEDS: METOPROLOL TARTRATE 25 MG TAB PO SCH ×3 (04:54→16:40)
[2022-12-27 07:59] LABS: BUN Creatinine Ratio 20.2 (10-20); Creatinine Clr Calc Pharmacy 62.4 ml/min; Est GFR (African American) 68.9 ml/min; Est GFR (Non-African American) 59.4 ml/min; Magnesium 1.8 mg/dl (1.7-2.4); Phosphorus 2.5 mg/dl (2.5-4.9); Potassium 4.4 mmol/L (3.5-5.1)
[2022-12-27] MEDS: COLCHICINE 0.6 MG TAB PO SCH ×2 (07:59→21:09)
[2022-12-27] MEDS: INSULIN ASPART PER UNIT SC SCH ×4 (08:02→21:00)
[2022-12-27] MEDS: PANTOprazole 40 MG in SYRINGE 0 ML IV SCH ×2 (08:02→21:09)
[2022-12-27] MEDS: POLYETHYLENE (MIRALAX) 17 GM PACK PO SCH ×2 (08:02→21:09)
[2022-12-27] MEDS: DOCUSATE SODIUM 100 MG CAP PO SCH ×2 (08:02→21:09)
[2022-12-27] MEDS: HEPARIN SODIUM/DEXTROSE 25,000 UNITS/500 ML BAG IV SCH ×2 (08:03→16:41)
[2022-12-27 08:23] LABS: Basophils # (auto) 0.03 K/uL (0-0.2); Basophils % (auto) 0.4 %; Eosinophils # (auto) 0.27 K/uL (0-0.50); Eosinophils % (auto) 3.8 %; Hematocrit (blood only) 25.1 % (42.0-52.0); Hemoglobin 8.7 g/dl (14.0-18.0); Immature Granulocytes # (auto) 0.02 K/uL (0.01-0.20); Immature Granulocytes % (auto) 0.3 %; Lymphocytes % (auto) 28.5 %; Mean Corpuscular Hemoglobin 27.5 pg (25.0-34.0); Mean Corpuscular Hgb Conc 34.7 g/dL (32.0-36.0); Mean Corpuscular Volume 79.4 fL (80.0-100.0); Mean Platelet Volume 10.3 fL (9.4-12.4); Platelet Count 319 K/uL (130-400); Platelet Estimate Normal (Normal); RDW Coefficient of Variation 11.8 % (11.5-14.5); RDW Standard Deviation 34.1 fL (36.4-46.3); Red Blood Count 3.16 M/uL (4.70-6.10); White Blood Count 7.02 K/ul (4.8-10.8)
[2022-12-27 08:34] LABS: Partial Thromboplastin Ratio 1.8
[2022-12-27 08:47] LABS: Partial Thromboplastin Time 50.1 Seconds (21.0-31.0)
--- NOTE | 2022-12-27 09:35 | History & Physical Bridge Note ---
Date of Service December 27, 2022 History & Physical Bridge Note I have examined the patient, reviewed the History & Physical and in the interval since the performance of the History & Physical I have noted the following changes of clinical significance: H/H now 8.7/25.1 after beginning anticoagulation with heparin gtt. No documented gross bloody stool or melena. Na 130 this AM. BUN 26. Continue IV Protonix 40 mg BID. Discussed with nursing. Patient did not complete entire bowel prep but is having watery stools at this point. Hold heparin drip and plan to proceed with EGD & Colonoscopy today as further plans for ROSSI/cardioversion are on hold until patient is assessed for GI bleeding.
[2022-12-27] MEDS ORDERED: [UNRECOGNIZED DRUG - REMARK] ONE (09:45)
--- NOTE | 2022-12-27 09:48 | Cardiology Progress Note ---
Date of Service December 27, 2022 Assessment & Plan (1) Pericardial effusion: Plan: Post pericardiocentesis 12/25 2. Atrial flutter with RVR 3. Severe LVH 4. LOIDA, hyponatremia 5. Right lower extremity below the knee acute DVT 6. Iron deficiency anemia 7. Dysphagia/possible esophagitis 8. Type 2 diabetes 9. Urinary tract obstruction 10. Right atrial thrombus (3.4 x 1 cm) Hemodynamically stable overnight Minimal pericardial drainage Remains in atrial flutter with RVR Improved pulmonary congestion on exam Improving renal function Pericardial drain removed today. Repeat limited echo tomorrow -- Pericardial studies, SPEP/UPEP still pending Continue colchicine Given metoprolol, increase 37.5 mg q6h. Okay with heart rates in the 110s to 120s -- Agree with restarting digoxin. Continue anticoagulation for atrial thrombus. Will avoid cardioversion. -- From a cardiac standpoint OK with transfer back to telemetry. Appreciate ICU and hospital medicine care. We will continue to follow. Admission and Anticipated Discharge Date Admission Date: December 24, 2022 Subjective Patient reports feeling better today. Denies chest pain or shortness of breath. Reports some residual dysphagia. No other new concerns. Telemetry reviewedremains in atrial flutter, heart rates up to the 140s this morning Pericardial drain [id number] total yesterday, 20ml this morning I/O yesterday 4.6/2.9. +5.6L over admit Review of Systems Review of Systems: All systems reviewed & are unremarkable except as noted in HPI & below Physical Exam Physical Exam: General: Comfortable HEENT: Sclerae anicteric Lungs: Clear anteriorly, lungs clear Cardiac: Irregular irregular, tachycardic, no murmurs. no erythema around drain. Vascular: 2+ radial, bilaterally Abdomen: Soft, nontender Extremities: Well perfused, no edema Neuro: Nonfocal Psych: Alert orient x3, normal affect and mood Results & Data ([facility]) Vital Signs (Past 12 Hours) Vital Signs Temp Pulse Pulse Resp BP BP Pulse Ox 12/27/22 06:00 122 H 18 93/79 L 95 12/27/22 05:00 128 H 17 112/73 94 12/27/22 04:00 98.4 F 125 H 20 125/74 93 12/27/22 03:00 115 H 19 106/67 94 12/27/22 02:00 127 H 17 110/68 100 12/27/22 01:00 106 H 16 122/77 98 12/27/22 00:00 98.6 F 99 H 18 114/81 97 12/26/22 23:00 115 H 19 125/83 94 12/26/22 22:00 103 H 19 106/80 95 O2 Del Method O2 Flow Rate 12/27/22 06:00 Nasal Cannula 2 12/27/22 05:00 Nasal Cannula 2 12/27/22 04:00 Nasal Cannula 2 12/27/22 03:00 Nasal Cannula 2 12/27/22 02:00 High Flow Nasal Cannula 2 12/27/22 01:00 High Flow Nasal Cannula 2 12/27/22 00:00 High Flow Nasal Cannula 2 12/26/22 23:00 High Flow Nasal Cannula 2 12/26/22 22:00 High Flow Nasal Cannula 2 PG Care Time/CCT Total # of Minutes Spent Total Time Spent with Patient: Total time spent is greater than 50% in coordination of care (as documented) at patient's floor/unit and/or counseling patient: Coding Level of Care Code 90170 SUB INP/OBS CARE 3/50MIN Diagnoses Pericardial effusion I31.39
[2022-12-27] MEDS ORDERED: DIGOXIN 250 MCG in SYRINGE 9 ML IV ONE (10:00)
--- NOTE | 2022-12-27 10:10 | Critical Care Progress Note ---
Date of Service December 27, 2022 Assessment & Plan (1) DVT (deep venous thrombosis): (2) Cardiac tamponade: (3) Acute pericarditis: (4) Atrial flutter with rapid ventricular response: (5) Acute GI bleeding: (6) Diabetes: Plan Reason Critically Ill: 62-year-old male with history of diabetes presenting with a flutter, heme positive stools, dysphagia, pericardial effusion with tamponade physiology status post pericardial drain requiring close hemodynamic monitoring. 24-hour events: Patient's been hemodynamically stable in the ICU. Pericardial drains remain in place with minimal output overnight. He has had his beta- jose alfredo titrated up. Recommendations NEURO -no current issues. Continue to follow CARDIAC/VASCULAR - * Pericardial effusion with tamponade physiology status post pericardiocentesis: Drains removed by cardiology for now. Continue colchicine. * Atrial flutter with rapid ventricular response: Continue metoprolol. We will give additional dose of IV digoxin today and defer additional interventions to cardiology. Currently on heparin infusion for possible ventricular thrombus. Will need follow-up echocardiogram in a.m.. Okay for gentle diuresis RESPIRATORY -hypoxemic respiratory failure significantly improved overnight. Continue gentle diuresis as tolerated. Wean oxygen as tolerated. GI/NUTRITION - * Heme Positive Stools: Esophageal wall thickening. N.p.o. for EGD colonoscopy. Hemoglobins been stable. RENAL/LYTES -improving acute kidney injury. Prior history of difficulty voiding. Continue to follow. - * Strict I&Os. ENDO - glycemic control per protocol. HEME -mild anemia. No evidence of ongoing blood loss. Right peroneal DVT. Patient has multiple indications for anticoagulation currently including the lower extremity DVT, atrial fibrillation/flutter, and ventricular thrombus. No evidence of ongoing bleeding. ID - * Does not appear to have infectious component at this time. LINES/IV ACCESS - * PIVs x2 DVT PROPHYLAXIS - * Heparin gtt Patient is been stable overnight. His critical care issues appear resolved. I think he can transfer out of the ICU back to the floor on telemetry status. Critical care services will sign off. Feel free to contact us if we can be of additional assistance. Admission and Anticipated Discharge Date Admission Date: December 24, 2022 Subjective Patient seen and examined. EMR reviewed. Discussed on multidisciplinary rounds. Discussed with cardiology bedside. The patient has pericardial drains removed this morning. That minimal output overnight. He is having his beta-jose alfredo titrated up. He states he feels better. He is denying any pain issues. No respiratory issues. Review of Systems Review of Systems: All systems reviewed & are unremarkable except as noted in Subjective Physical Exam Constitutional: WD/WN, vitals as above Neck: trachea midline, no thyromegaly Respiratory: normal respiratory effort, lungs clear to auscultation Cardiovascular: RRR, no murmur, no edema Gastrointestinal (Abdomen): normal bowel sounds, soft, nontender, no hepatosplenomegaly Musculoskeletal: Extremities: extremities normal to inspection Skin: no rashes, warm and dry Lymphatic: no cervical lymphadenopathy Results & Data Results & Data ([facility]) Vital Signs (Past 12 Hours) Vital Signs Temp Pulse Pulse Resp BP BP Pulse Ox 12/27/22 06:00 122 H 18 93/79 L 95 12/27/22 05:00 128 H 17 112/73 94 12/27/22 04:00 36.9 C 125 H 20 125/74 93 12/27/22 03:00 115 H 19 106/67 94 12/27/22 02:00 127 H 17 110/68 100 12/27/22 01:00 106 H 16 122/77 98 12/27/22 00:00 37 C 99 H 18 114/81 97 12/26/22 23:00 115 H 19 125/83 94 O2 Del Method O2 Flow Rate 12/27/22 06:00 Nasal Cannula 2 12/27/22 05:00 Nasal Cannula 2 12/27/22 04:00 Nasal Cannula 2 12/27/22 03:00 Nasal Cannula 2 12/27/22 02:00 High Flow Nasal Cannula 2 12/27/22 01:00 High Flow Nasal Cannula 2 12/27/22 00:00 High Flow Nasal Cannula 2 12/26/22 23:00 High Flow Nasal Cannula 2 Critical Care Results & Data Vital Signs (Past 12 Hours) Vital Signs Temp Pulse Pulse Resp BP BP Pulse Ox 12/27/22 06:00 122 H 18 93/79 L 95 12/27/22 05:00 128 H 17 112/73 94 12/27/22 04:00 36.9 C 125 H 20 125/74 93 12/27/22 03:00 115 H 19 106/67 94 12/27/22 02:00 127 H 17 110/68 100 12/27/22 01:00 106 H 16 122/77 98 12/27/22 00:00 37 C 99 H 18 114/81 97 12/26/22 23:00 115 H 19 125/83 94 O2 Del Method O2 Flow Rate 12/27/22 06:00 Nasal Cannula 2 12/27/22 05:00 Nasal Cannula 2 12/27/22 04:00 Nasal Cannula 2 12/27/22 03:00 Nasal Cannula 2 12/27/22 02:00 High Flow Nasal Cannula 2 12/27/22 01:00 High Flow Nasal Cannula 2 12/27/22 00:00 High Flow Nasal Cannula 2 12/26/22 23:00 High Flow Nasal Cannula 2 Lab & Micro Results (Past 24 Hours) RBC 3.16 M/uL (4.70-6.10) L 12/27/22 WBC 7.02 K/ul (4.8-10.8) 12/27/22 Hgb 8.7 g/dl (14.0-18.0) L 12/27/22 Hct 25.1 % (42.0-52.0) L 12/27/22 MCV 79.4 fL (80.0-100.0) L 12/27/22 MCH 27.5 pg (25.0-34.0) 12/27/22 MCHC 34.7 g/dL (32.0-36.0) 12/27/22 RDW Standard Deviation 34.1 fL (36.4-46.3) L 12/27/22 RDW Coefficient of Variation 11.8 % (11.5-14.5) 12/27/22 Plt Count 319 K/uL (130-400) 12/27/22 MPV 10.3 fL (9.4-12.4) 12/27/22 Neutrophils (%) (Auto) 57.0 % 12/27/22 Lymphocytes (%) (Auto) 28.5 % 12/27/22 Monocytes # (Auto) 0.70 K/uL (0.11-0.59) H 12/27/22 Eosinophils # (Auto) 0.27 K/uL (0-0.50) 12/27/22 Immature Granulocyte % (Auto) 0.3 % 12/27/22 Neutrophils # (Auto) 4.00 K/uL (1.40-6.50) 12/27/22 Lymphocytes # (Auto) 2.00 K/uL (1.2-3.4) 12/27/22 Monocytes # (Auto) 0.70 K/uL (0.11-0.59) H 12/27/22 Eosinophils # (Auto) 0.27 K/uL (0-0.50) 12/27/22 Basophils # (Auto) 0.03 K/uL (0-0.2) 12/27/22 Immature Granulocyte # (Auto) 0.02 K/uL (0.01-0.20) 3 Na 130 mmol/L (136-145) L 12/27/22 K 4.4 mmol/L (3.5-5.1) 12/27/22 Cl 97 mmol/L (98-107) L 12/27/22 CO2 28 mmol/L (21-32) 12/27/22 Anion Gap 5 (3-11) 12/27/22 BUN 26 mg/dl (6-23) H 12/27/22 Creatinine 1.29 mg/dl (0.6-1.4) 12/27/22 Estimated GFR ( Amer) 68.9 ml/min 12/27/22 Estimated GFR (Non-Af Amer) 59.4 ml/min 12/27/22 BUN/Creatinine Ratio 20.2 (10-20) H 12/27/22 Glu 132 mg/dl (70-99(Fasting)) H 12/27/22 Ca 8.0 mg/dl (8.5-10.1) L 12/27/22 Phosphorus Level 2.5 mg/dl (2.5-4.9) 12/27/22 Mg 1.8 mg/dl (1.7-2.4) 12/27/22 07:13 Calcium Level 8.0 mg/dl (8.5-10.1) L 12/27/22 07:13 Microbiology 12/25/22 16:45 Fungal Smear - Final Chest 12/25/22 16:45 Acid Fast Bacilli Smear - Final Pericardial Fluid 12/25/22 16:45 Gram Stain - Final Pericardial Fluid Aerobic and Anaerobic Culture - Preliminary No growth to date. I & O Totals 24 Hours 12/26/22 12/27/22 12/28/22 06:59 06:59 06:59 Intake Total 2796.583 / 2796.583 4609.7 / 4609.7 195.2 / 195.2 Output Total 1436 / 2136 2953 / 2953 Balance 1360.583 / 568.179 8790.7 / 1656.7 195.2 / 195.2 Cumulative 12/24/22 08:43 thru 12/27/22 09:08 Intake Total 54418.567 Output Total 4390 Balance 5640.567 RT Ventilator Mngmt (Last Documented) Ventilator Ordered Settings Respiratory Rate 18 12/27/22 06:00 Ventilator - PT Measurements Respiratory Rate 18 Coding Level of Care Code 32077 SUB INP/OBS CARE 3/50MIN Diagnoses DVT (deep venous thrombosis) I82.409 Cardiac tamponade I31.4 Acute pericarditis I30.9 Atrial flutter with rapid ventricular response I48.92 Acute GI bleeding K92.2 Diabetes E11.9
[2022-12-27] MEDS: MAGNESIUM SULFATE / D5W 1 GM/100 ML BAG IV SCH ×2 (11:06→16:10)
--- NOTE | 2022-12-27 11:08 | Pharmacy Report ---
Pharmacy Glycemic Short Note 2 - Date of Service December 27, 2022 - Glycemic Short BSG Results (Last 24 hours): 12/26/22 12/26/22 12/26/22 11:03 16:06 20:58 Glucose POC Glucose 216 H 204 H 166 H 12/27/22 12/27/22 07:13 07:56 Glucose 132 H POC Glucose 161 H OUTPATIENT ANTIDIABETIC REGIMEN: * Humulin R SSI * Metformin 1 g PO BIDM * HbA1c: 9.9% (12/25/22) ASSESSMENT: 12/27 * NPO for colonoscopy later today, scheduled for 1445. Heparin drip started yesterday evening for DVT in setting of GIB as well - likely to continue but currently being held for colonoscopy * AM fasting BSG elevated but patient currently NPO. Anticipate diet to be re- ordered after colonoscopy. Will schedule dose of Lantus for later today, but at lower than previous * Post-prandial BSG's yesterday all elevated - will tighten CHO ratio in anticipation of diet later today 12/26: * Patient received a total of 51 units of insulin yesterday, 20 units basal + 31 units bolus. BSGs were 014-480-881-174-112-89 mg/dL. * Underwent pericardiocentesis yesterday. Diet changed to full liquid today. Will complete bowel prep today and have colonoscopy tomorrow morning. * Found to have RLE DVT for which a heparin drip has been started. * Fasting BSG was 97 mg/dL this AM. Given full liquid diet and NPO status tomorrow, will hold off on any further basal insulin at this time. No change to Novolog. 12/25: * Patient is a 62 year old male with very poorly controlled T2DM on SSI and metformin * Presented to ED on 12/24/22 from assisted for evaluation of acute abdominal pain and possible acute ND * Subsequently found to have Afib w/ RVR - started on diltiazem gtt (mixed in dextrose) * Pharmacy consulted ~lunchtime on 12/25 due to persistent hyperglycemia (>300 mg/dL at lunch) * Prior regimen clearly inadequate with correctional insulin only * Will add basal, carb coverage, and a one-time IV insulin bolus PLAN FOR INPATIENT GLYCEMIC CONTROL: * Hold outpatient oral diabetes medications * Basal insulin * Lantus 10 units @ dinner (hold if NPO of if BSG less than 120 mg/dL) * Bolus insulin * NovoLog per scale ACHS or Q6hrs while NPO * Goal Range: Low 110 mg/dL - High 140 mg/dL * Correction Factor: 20 mg/dL/unit * Nutritional / Prandial insulin per carb ratio of 1 unit per 6 grams CHO consumed
[2022-12-27] MEDS ORDERED: PROPOFOL IV EMULSION 10 MG/ML 20 ML VIAL IV ONE (13:23)
[2022-12-27] MEDS ORDERED: LIDOCAINE 2% MPF LOCAL 5 ML VIAL INFIL ONE (13:23)
[2022-12-27] MEDS ORDERED: ETOMIDATE 2 MG/ML 20 ML VIAL IV ONE (13:25)
--- NOTE | 2022-12-27 14:01 | Anesthesiology Consultation ---
Date of Service December 27, 2022 Assessment & Plan Chart Review Chart Review: Acceptable Risk for Surgery Consults Requested none History Surgery Operation Date: 12/25/22 16:15 Proposed Procedures p Pericardiocentesis - Kirby Lemus MD Operation Date: 12/27/22 16:30 Proposed Procedures p Colonoscopy EGD Dr. Swanson - Juan Francisco Swanson MD Height/Weight Height: 5 ft 6 in Weight: 87.6 kg Allergies Allergy/AdvReac Type Severity Reaction Status Date / Time No Known Allergies Allergy Unverified 12/24/22 13:36 Medications Home Medications Medication Instructions Recorded Confirmed Last Taken amoxicillin 875 mg-potassium 1 tab PO BID #20 tabs 12/12/22 Unknown clavulanate 125 mg tablet Active Medications Generic Name Dose Route Start Last Admin Trade Name Freq PRN Reason Stop Dose Admin Colchicine 0.6 mg 12/25/22 15:35 12/27/22 07:59 Colchicine 0.6 Mg Tab PO 01/24/23 15:34 0.6 mg BID ZULEMA Administration Docusate Sodium 100 mg 12/24/22 21:00 12/27/22 08:02 Docusate Sodium 100 Mg Cap PO 01/23/23 20:59 100 mg BID ZULEMA Administration Pantoprazole Sodium 40 mg/ 10 mls @ 5 mls/min 12/24/22 21:00 12/27/22 08:02 Syringe IV 01/23/23 20:59 5 mls/min BID ZULEMA Administration Heparin Sodium/Dextrose 25,000 units in 500 mls @ 0 mls/hr 12/26/22 08:45 12/27/22 09:45 Heparin Sodium/Dextrose IV 01/25/23 08:44 0 units/hr .Q0M ZULEMA 0 mls/hr Titration Protocol 0 UNITS/HR Insulin Aspart 0 units 12/25/22 12:45 12/27/22 12:03 Insulin Aspart Per Unit SC 01/24/23 12:44 1 units ACHS ZULEMA Administration Metoprolol Tartrate 37.5 mg 12/27/22 11:00 12/27/22 11:04 Metoprolol Tartrate 25 Mg Tab PO 01/26/23 10:59 37.5 mg Q6H ZULEMA Administration Polyethylene Glycol 17 gm 12/24/22 21:00 12/27/22 08:02 Polyethylene (Miralax) 17 Gm Pack PO 01/23/23 20:59 17 gm BID ZULEMA Administration NPO Date Last Intake of Fluids: 12/26/22 Last Intake of Fluids Comment: sip with med today at 1100 with med Date Last Intake of Solids: 12/26/22 Time Last Intake of Solids: 21:00 Last Intake of Solids Comment: ice cream Past Medical History Medical History Diabetes Glaucoma Hyperlipidemia Hypertension Latent tuberculosis Social History Smoking Status: Never smoker Physical Exam Vital Signs Last Vital Signs Temp 36.3 C L 12/27/22 13:36 Pulse 108 H 12/27/22 13:36 Resp 18 12/27/22 13:36 BP 107/78 12/27/22 13:36 Pulse Ox 92 12/27/22 13:36 O2 Del Method Nasal Cannula 12/27/22 13:36 O2 Flow Rate 2 12/27/22 13:36 Testing Laboratory Results 12/27/22 07:13 12/27/22 07:13 PT 13.1 Seconds (9.0-12.0) H 12/26/22 09:10 INR 1.2 (0.9-1.1) H 12/26/22 09:10 APTT 50.1 Seconds (21.0-31.0) H* 12/27/22 07:13 Hemoglobin A1c 9.9 % (4.5-5.6) H 12/25/22 07:26 Urine Color Yellow 12/24/22 17:00 Urine Appearance Clear (Clear) 12/24/22 17:00 Urine pH 5.5 (4.5-7.5) 12/24/22 17:00 Ur Specific [place] 1.011 (1.000-1.030) 12/24/22 17:00 Urine Protein Trace (Negative) H 12/24/22 17:00 Urine Glucose (UA) 2+ (Negative) H 12/24/22 17:00 Urine Ketones Negative (Negative) 12/24/22 17:00 Urine Nitrite Negative (Negative) 12/24/22 17:00 Ur Leukocyte Esterase Negative (Negative) 12/24/22 17:00 Urine WBC (Auto) 1-5 /hpf (0-5) 12/24/22 17:00 Urine RBC (Auto) 0-4 /hpf (0-4) 12/24/22 17:00 U Hyaline Cast (Auto) 1-5 /lpf (0-5) 12/24/22 17:00 U Epithel Cells (Auto) 0-5 /lpf (0-5) 12/24/22 17:00 Urine Bacteria (Auto) Negative (Negative) 12/24/22 17:00 Blood Type O Positive 12/24/22 09:27 Antibody Screen NEGATIVE 12/24/22 09:27 12/25/22 16:45 Fungal Smear - Final Chest 12/25/22 16:45 Acid Fast Bacilli Smear - Final Pericardial Fluid 12/25/22 16:45 Gram Stain - Final Pericardial Fluid Aerobic and Anaerobic Culture - Preliminary No growth to date. 12/27/22 12/27/22 11:15 07:56 POC Glucose 143 H 161 H
[2022-12-27] MEDS ORDERED: ONDANSETRON INJ 2 MG/ML 2 ML VIAL ONE (14:22)
--- NOTE | 2022-12-27 14:39 | GI REPORT ---
Addendum Number: 1 Addendum Date: 12/27/2022 2:41:46 PM correction: return patient to hospital [facility] for ongoing care. Juan Francisco Swanson MD 12/27/2022 2:42:03 PM This report has been signed electronically. Patient Name: Jamie Hill Procedure Date: 12/27/2022 1:31 PM Date of : 1960 Admit Type: Inpatient Age: 62 Gender: Male Attending MD: Juan Frnacisco Swanson MD, Procedure: Upper GI endoscopy Providers: Juan Francisco Swanson MD Referring MD: Umesh Leavitt Do Indications: Unexplained iron deficiency anemia, Melena Medicines: Monitored Anesthesia Care Complications: No immediate complications. Estimated blood loss: None. Estimated Blood Loss: Estimated blood loss: none. Procedure: Pre-Anesthesia Assessment: - Prior Anticoagulants: The patient has taken no anticoagulant or antiplatelet agents. - ASA Grade Assessment: II - A patient with mild systemic disease. After obtaining informed consent, the endoscope was passed under direct vision. Throughout the procedure, the patient's blood pressure, pulse, and oxygen saturations were monitored continuously. The Endoscope was introduced through the mouth, and advanced to the second part of duodenum. The upper GI endoscopy was accomplished without difficulty. The patient tolerated the procedure well. Findings: Mildly severe esophagitis with no bleeding was found in the middle and lower thirds of the esophagus. Cells for cytology were obtained by brushing. Estimated blood loss: none. Diffuse mild inflammation characterized by erosions and erythema was found in the stomach. Biopsies were taken with a cold forceps for Helicobacter pylori testing. Estimated blood loss: none. The duodenal bulb and second portion of the duodenum were normal. Impression: - Mildly severe candidiasis esophagitis with no bleeding. Cells for cytology obtained. - Gastritis. Biopsied. - Normal duodenal bulb and second portion of the duodenum. Recommendation: - Discharge patient to home (with escort). - Resume previous diet today. - Await pathology results. Juan Francisco Swanson MD 12/27/2022 2:38:51 PM This report has been signed electronically. Note Initiated On: 12/27/2022 1:31 PM Number of Addenda: 1 I attest to the content of the Intraoperative Record and orders documented therein, exceptions below {[id number]}
--- NOTE | 2022-12-27 14:41 | GI REPORT ---
Patient Name: Jamie Hill Procedure Date: 12/27/2022 1:31 PM Date of : 1960 Admit Type: Inpatient Age: 62 Gender: Male Attending MD: Juan Francisco Swanson MD, Procedure: Colonoscopy Providers: Juan Francisco Swanson MD Referring MD: Umesh Leavitt Do Indications: Melena, Unexplained iron deficiency anemia Medicines: Monitored Anesthesia Care Complications: No immediate complications. Estimated blood loss: None. Estimated Blood Loss: Estimated blood loss: none. Procedure: Pre-Anesthesia Assessment: - Prior Anticoagulants: The patient has taken no anticoagulant or antiplatelet agents. - ASA Grade Assessment: III - A patient with severe systemic disease. After I obtained informed consent, the scope was passed under direct vision. Throughout the procedure, the patient's blood pressure, pulse, and oxygen saturations were monitored continuously. The Colonoscope was introduced through the anus and advanced to the cecum, identified by appendiceal orifice and ileocecal valve. The colonoscopy was performed without difficulty. The patient tolerated the procedure well. The quality of the bowel preparation was good. Findings: The colon (entire examined portion) appeared normal. no evidence of blood throughout entire exam. Non-bleeding internal hemorrhoids were found. The hemorrhoids were small. Impression: - The entire examined colon is normal. - Non-bleeding internal hemorrhoids. - No specimens collected. Recommendation: - Return patient to hospital [facility] for ongoing care. - Advance diet as tolerated today. Juan Francisco Swanson MD 12/27/2022 2:41:00 PM This report has been signed electronically. Note Initiated On: 12/27/2022 1:31 PM Number of Addenda: 0 I attest to the content of the Intraoperative Record and orders documented therein, exceptions below {[id number]}
--- NOTE | 2022-12-27 14:54 | Anesthesiology Progress Note ---
Date of Service December 27, 2022 Anesthesia Post Procedure Vital Signs Vital Signs: Temp Pulse Pulse Pulse Resp BP BP 12/27/22 14:40 125 H 14 99/71 L 12/27/22 13:00 120 H 16 12/27/22 13:00 99/66 L 12/27/22 12:00 126 H 20 12/27/22 11:00 127 H 15 12/27/22 11:00 97/75 L 12/27/22 10:00 127 H 16 12/27/22 10:00 125/74 12/27/22 09:00 140 H 20 12/27/22 09:00 123/74 12/27/22 08:00 144 H 22 12/27/22 08:00 109/79 12/27/22 07:51 136 H 22 12/27/22 07:51 105/83 12/27/22 07:01 120 H 18 12/27/22 07:01 112/76 12/27/22 07:00 118 H 16 12/27/22 08:00 12/27/22 08:00 12/27/22 13:36 36.3 C L 108 H 18 107/78 12/27/22 11:46 36.9 C 12/27/22 11:03 137 H 12/27/22 06:00 122 H 18 93/79 L 12/27/22 05:00 128 H 17 112/73 12/27/22 04:00 36.9 C 125 H 20 125/74 12/27/22 03:00 115 H 19 106/67 12/27/22 02:00 127 H 17 110/68 12/27/22 01:00 106 H 16 122/77 12/27/22 00:00 37 C 99 H 18 114/81 12/26/22 23:00 115 H 19 125/83 12/26/22 22:00 103 H 19 106/80 12/26/22 21:00 114 H 22 137/83 12/26/22 20:00 36.9 C 116 H 21 132/82 12/26/22 20:00 12/26/22 19:00 112 H 23 112/72 12/26/22 18:00 110 H 18 108/73 12/26/22 17:00 115 H 20 107/69 12/26/22 16:00 36.3 C L 112 H 18 124/84 12/26/22 15:00 108 H 16 119/77 Pulse Ox Pulse Ox O2 Del Method O2 Del Method O2 Flow Rate O2 Flow Rate 12/27/22 14:40 92 Nasal Cannula 2 12/27/22 13:00 12/27/22 13:00 12/27/22 12:00 12/27/22 11:00 93 12/27/22 11:00 12/27/22 10:00 93 12/27/22 10:00 12/27/22 09:00 93 12/27/22 09:00 12/27/22 08:00 95 12/27/22 08:00 12/27/22 07:51 96 12/27/22 07:51 12/27/22 07:01 97 12/27/22 07:01 12/27/22 07:00 93 12/27/22 08:00 Nasal Cannula 2 12/27/22 08:00 95 Nasal Cannula 2 12/27/22 13:36 92 Nasal Cannula 2 12/27/22 11:46 12/27/22 11:03 12/27/22 06:00 95 Nasal Cannula 2 12/27/22 05:00 94 Nasal Cannula 2 12/27/22 04:00 93 Nasal Cannula 2 12/27/22 03:00 94 Nasal Cannula 2 12/27/22 02:00 100 High Flow Nasal Cannula 2 12/27/22 01:00 98 High Flow Nasal Cannula 2 12/27/22 00:00 97 High Flow Nasal Cannula 2 12/26/22 23:00 94 High Flow Nasal Cannula 2 12/26/22 22:00 95 High Flow Nasal Cannula 2 12/26/22 21:00 12/26/22 20:00 94 High Flow Nasal Cannula 2 12/26/22 20:00 High Flow Nasal Cannula 2 12/26/22 19:00 94 High Flow Nasal Cannula 2 12/26/22 18:00 96 Nasal Cannula 3 12/26/22 17:00 95 Nasal Cannula 3 12/26/22 16:00 94 Nasal Cannula 2 12/26/22 15:00 93 Nasal Cannula 3 Transfer of Care Handoff Completed per policy Notes Mental Status: alert / awake / arousable and participated in evaluation Patient Amnestic to Procedure: Yes Nausea / Vomiting: adequately controlled Pain: adequately controlled Airway Patency, RR, SpO2: stable & adequate BP & HR: stable & adequate Hydration State: stable & adequate Anesthetic Complications: no major complications apparent
[2022-12-27] MEDS ORDERED: Heparin IV Adult Wt-Based Standard *NO* Bolus Protocol IV SCH (15:42)
[2022-12-27 15:43] LABS: Albumin 2.6 g/dL (3.8-4.8); Alpha 1 Globulin 0.5 g/dL (0.2-0.3); Beta-1-Globulin 0.3 g/dL (0.4-0.6); Beta-2-Globulin 0.5 g/dL (0.2-0.5); Gamma Globulin 0.9 g/dL (0.8-1.7); Monoclonal Protein Band 1 DNR g/dL (NONE DETECTED); Monoclonal Protein Band 2 DNR g/dL (NONE DETECTED); Monoclonal Protein Band 3 DNR g/dL (NONE DETECTED); Total Protein 5.8 g/dL (6.1-8.1)
[2022-12-27] MEDS ORDERED: LANTUS PER UNIT CHARGE SQ ONE (16:30)
[2022-12-27] MEDS: DIGOXIN 0.125 MG TAB PO SCH (16:41)
[2022-12-27] MEDS: METOPROLOL TARTRATE 50 MG TAB PO SCH ×2 (18:31→21:09)
--- NOTE | 2022-12-27 21:34 | Hospitalist Progress Note ---
Date of Service December 27, 2022 Assessment & Plan (1) Cardiac tamponade: Plan: 62 yo male admitted with atrial flutter, however during his hospital stay, developed cardiac tamponade with worsening O2 saturation despite increasing O2 supplementation S/P pericardiocentesis now in PCU (2) Atrial flutter with rapid ventricular response: Plan: Discontineud diltiazem, dig. Increased metoprolol to 50 mg PO q6h on 12/27 will like to cardovert patient, but will need to be on heparin drip; however due to his possible GI bleed, will await GI scopes before proceeding. [id number], will resume heparin drip. Possible ventricular thrombus, will obtain repeat echo on 12/28 consult cardiology appreciate input (3) Abnormal EKG: Plan: No chest pain or shortness of breath to suggest ACS (4) Microcytic anemia: Plan: Fecal occult blood positive in the emergency room Famotidine IV 20 mg and pantoprazole IV 40 mg given in the emergency room Continue pantoprazole 40 mg IV twice daily S/P EGD and colonoscopy showed elma in the esophagus: may consider fluconazole if renal function continues to improve on 12/28 (5) Dysphagia: Plan: With solid foods Recommend EGD inpatient or outpatient depending on clinical course (6) Diabetes: Plan: will consult glycemic control. (7) Hypertension: Plan: Stop lisinopril. Reportedly not taking this for the last week due to low blood pressure - ? GI bleed Plan VTE Prophylaxis - chemical prophylaxis deferred due to possible acute GI bleed Admission and Anticipated Discharge Date Admission Date: December 24, 2022 Subjective Patient reports feeling comfortable. His biggest complaint is that he is looking for [place]. Review of Systems Review of Systems: All systems reviewed & are unremarkable except as noted in HPI & below Physical Exam Physical Exam: Constitutional: WD/WN, vitals as above Eyes: PERRL, conjunctivae normal, anicteric sclerae EOM intact bilaterally Respiratory: normal respiratory effort, lungs clear to auscultation Cardiovascular: Rate/Rhythm: irregularly irregular and + tachycardic Heart Sounds: no murmur Extremities: normal capillary refill; no calf tenderness and no pedal edema Gastrointestinal (Abdomen): normal bowel sounds, soft, nontender, no hepatosplenomegaly Musculoskeletal: no cyanosis or clubbing, extremities motor strength 5/5 Skin: no rashes, warm and dry Neurologic: moves all extremities and awake; not confused Psychiatric: A+Ox3, euthymic affect Genitourinary: no CVA tenderness Results & Data Results & Data ([facility]) Vital Signs (Past 12 Hours) Vital Signs Temp Pulse Pulse Resp BP BP Pulse Ox 12/27/22 19:45 36.7 C 90 16 131/83 99 12/27/22 16:15 36.6 C 125 H 18 126/82 96 12/27/22 16:30 12/27/22 16:30 125 H 12/27/22 16:41 112 H 12/27/22 15:10 108 H 20 97/76 L 97 12/27/22 14:55 114 H 18 119/72 97 12/27/22 14:40 125 H 14 99/71 L 92 12/27/22 13:00 120 H 16 12/27/22 13:00 99/66 L 12/27/22 12:00 126 H 20 12/27/22 11:00 127 H 15 93 12/27/22 11:00 97/75 L 12/27/22 10:00 127 H 16 93 12/27/22 10:00 125/74 12/27/22 13:36 36.3 C L 108 H 18 107/78 92 12/27/22 11:46 36.9 C 12/27/22 11:03 137 H O2 Del Method O2 Flow Rate 12/27/22 19:45 Nasal Cannula 2 12/27/22 16:15 Nasal Cannula 2 12/27/22 16:30 Nasal Cannula 2 12/27/22 16:30 12/27/22 16:41 12/27/22 15:10 Nasal Cannula 2 12/27/22 14:55 Nasal Cannula 2 12/27/22 14:40 Nasal Cannula 2 12/27/22 13:00 12/27/22 13:00 12/27/22 12:00 12/27/22 11:00 12/27/22 11:00 12/27/22 10:00 12/27/22 10:00 12/27/22 13:36 Nasal Cannula 2 12/27/22 11:46 12/27/22 11:03 PG Care Time/CCT Total # of Minutes Spent Total Time Spent with Patient: Total time spent is greater than 50% in coordination of care (as documented) at patient's floor/unit and/or counseling patient: Coding Level of Care Code 26605 SUB INP/OBS CARE 235MIN Diagnoses Cardiac tamponade I31.4 Atrial flutter with rapid ventricular response I48.92 Abnormal EKG R94.31 Microcytic anemia D50.9 Dysphagia R13.10 Diabetes E11.9 Hypertension I10
[2022-12-28 00:48] LABS: Partial Thromboplastin Ratio 1.7
[2022-12-28 00:53] LABS: Partial Thromboplastin Time 45.6 Seconds (21.0-31.0)
[2022-12-28] MEDS: METOPROLOL TARTRATE 50 MG TAB PO SCH ×2 (05:54→12:21)
[2022-12-28 07:47] LABS: Basophils # (auto) 0.04 K/uL (0-0.2); Basophils % (auto) 0.8 %; Eosinophils # (auto) 0.24 K/uL (0-0.50); Eosinophils % (auto) 4.8 %; Hematocrit (blood only) 26.4 % (42.0-52.0); Hemoglobin 8.9 g/dl (14.0-18.0); Immature Granulocytes # (auto) 0.01 K/uL (0.01-0.20); Immature Granulocytes % (auto) 0.2 %; Lymphocytes # (auto) 1.88 K/uL (1.2-3.4); Lymphocytes % (auto) 37.7 %; Mean Corpuscular Hemoglobin 27.2 pg (25.0-34.0); Mean Corpuscular Hgb Conc 33.7 g/dL (32.0-36.0); Mean Corpuscular Volume 80.7 fL (80.0-100.0); Mean Platelet Volume 9.6 fL (9.4-12.4); Monocytes # (auto) 0.43 K/uL (0.11-0.59); Monocytes % (auto) 8.6 %; Neutrophils # (auto) 2.39 K/uL (1.40-6.50); Neutrophils % (auto) 47.9 %; Platelet Count 320 K/uL (130-400); RDW Coefficient of Variation 11.9 % (11.5-14.5); RDW Standard Deviation 34.8 fL (36.4-46.3); Red Blood Count 3.27 M/uL (4.70-6.10); White Blood Count 4.99 K/ul (4.8-10.8)
[2022-12-28] MEDS ORDERED: SODIUM CHLORIDE 0.65% NA SOLN 45 ML (OCEAN) NAE ONE (07:48)
--- NOTE | 2022-12-28 07:57 | Hospitalist Progress Note ---
Date of Service December 28, 2022 Assessment & Plan (1) Cardiac tamponade: Plan: 62 yo male admitted with atrial flutter, however during his hospital stay developed cardiac tamponade with worsening O2 saturation despite increasing O2 supplementation S/P pericardiocentesis for pericardial effusion on 12/25, unknown cause Repeat Echo without evidence of reaccumulation of pericardial effusion Continue heparin gtt Continue colchicine BID Cardiology consulted and appreciate recommendations (2) Atrial flutter with rapid ventricular response: Plan: Continues to have AFlutter as high as 150s, otherwise hemodynamically stable Will trial dilt bolus and gtt to try to better control heart rates, and discontinue metoprolol PO For possible cardioversion today No evidence of bleeding on EGD/colonoscopy [id number], continue heparin drip Possible ventricular thrombus on Echo 12/27, will obtain repeat echo on 12/28 Cardiology consulted and appreciate recommendations (3) Abnormal EKG: Plan: No chest pain or shortness of breath to suggest ACS Liekly secondary to cardiac pathaologies as described above (4) Microcytic anemia: Plan: Hgb 10 on admission, down to 8.9 today, with mildly microcytic MCV (79-80) Fecal occult blood positive, reports of black stools S/P EGD and colonoscopy -> inflammation but no bleeding on EGD, no evidence of bleeding on colonoscopy Continue pantoprazole 40mg IV BID (5) Dysphagia: Plan: With solid foods EGD 12/27: showed esophagitis without bleeding, gastritis H. pylori, gastric biopsies, and fungal testing pending PPI as above (6) Diabetes: Plan: A1c 9.9% on 12/25 Appreciate glycemic management consult Basal/bolus insulin (7) Hypertension: Plan: Holding lisinopril given hypotension (8) Demand ischemia: Plan: In the setting of AFlutter with RVR, cardiac tamponade Troponin 27.5 -> 28.9, no evidence of ACS Care of cardiac concerns detailed above (9) Hyponatremia: Plan: Na 124 -> 132 this admission, improving (10) Acute kidney injury: Plan: Acute kidney injury suspected to be due to contrast-induced nephropathy Creatinine on admission 1.21 -> up to 2.07 following IV contrast load for imaging for problems as described above. Also with very distended bladder per ICU documentation at time of LOIDA. LOIDA has since resolved and creatinine 1.29 Plan VTE Prophylaxis - currently on Heparin gtt for AFlutter and possible cardioversion Admission and Anticipated Discharge Date Admission Date: December 24, 2022 Subjective Overnight patient with tachycardia (AFlutter) as high as 150s, otherwise hemodynamically stable. Spoke to patient using video tableau administrator service as patient is Maori speaking. He reports no chest pain, sensation of palpitati ons, or shortness of breath at time of my interview. He is hungry, otherwise denies complaints. Review of Systems Review of Systems: All systems reviewed & are unremarkable except as noted in Subjective Physical Exam Constitutional: WD/WN, vitals as above Respiratory: normal respiratory effort, lungs clear to auscultation Cardiovascular: HR regularly irregular, tachycardic, no murmurs Gastrointestinal (Abdomen): normal bowel sounds, soft, nontender, no hepatosplenomegaly Psychiatric: A+Ox3, euthymic affect Results & Data Results & Data ([facility]) Vital Signs (Past 12 Hours) Vital Signs Temp Pulse Pulse Resp BP Pulse Ox O2 Del Method 12/28/22 03:02 36.9 C 104 H 18 96/59 L 95 Room Air 12/28/22 00:18 129 H 128/79 12/27/22 23:06 36.6 C 76 18 98/60 L 97 Nasal Cannula 12/27/22 19:45 36.7 C 90 16 131/83 99 Nasal Cannula O2 Flow Rate 12/28/22 03:02 12/28/22 00:18 12/27/22 23:06 2 12/27/22 19:45 2 PG Care Time/CCT Total # of Minutes Spent Total Time Spent with Patient: Total time spent is greater than 50% in coordination of care (as documented) at patient's floor/unit and/or counseling patient: Coding Level of Care Code 35113 SUB INP/OBS CARE 3/50MIN Diagnoses Cardiac tamponade I31.4 Atrial flutter with rapid ventricular response I48.92 Abnormal EKG R94.31 Microcytic anemia D50.9 Dysphagia R13.10 Diabetes E11.9 Hypertension I10 Demand ischemia I24.8 Hyponatremia E87.1 Acute kidney injury N17.9
[2022-12-28] MEDS: INSULIN ASPART PER UNIT SC SCH ×4 (08:00→21:17)
[2022-12-28 08:20] LABS: Albumin Level 2.8 gm/dl (3.4-5.0); BUN Creatinine Ratio 17.9 (10-20); Bilirubin,Total 0.3 mg/dl (0.2-1.0); Calcium 8.4 mg/dl (8.5-10.1); Creatinine Clr Calc Pharmacy 57.1 ml/min; Est GFR (African American) 62.4 ml/min; Est GFR (Non-African American) 53.8 ml/min; Globulin 2.8 gm/dl (2.5-4.0); Phosphorus 3.7 mg/dl (2.5-4.9); Potassium 4.5 mmol/L (3.5-5.1); Total Protein 5.6 gm/dl (6.0-8.3)
[2022-12-28 08:23] LABS: Creatinine Ur 130 mg/dL (20-320); Protein, Urine Random 32 mg/dL (5-25); Ur Protein/Creat Ratio mg/g 246 mg/g creat (25-148); Urine Abnormal Protein Band 1 DNR mg/dL (NONE DETECTED); Urine Abnormal Protein Band 2 DNR mg/dL (NONE DETECTED); Urine Abnormal Protein Band 3 DNR mg/dL (NONE DETECTED); Urine Protein/Creatinine Ratio 0.246 (0.025-0.148)
[2022-12-28 08:26] LABS: Partial Thromboplastin Ratio 2.4
[2022-12-28 08:31] LABS: Partial Thromboplastin Time 64.9 Seconds (21.0-31.0)
--- NOTE | 2022-12-28 08:52 | Pharmacy Report ---
Pharmacy Glycemic Short Note 2 - Date of Service December 28, 2022 - Glycemic Short BSG Results (Last 24 hours): 12/27/22 12/27/22 12/27/22 11:15 17:04 19:38 Glucose POC Glucose 143 H 175 H 229 H 12/28/22 12/28/22 07:15 08:06 Glucose 118 H POC Glucose 109 H OUTPATIENT ANTIDIABETIC REGIMEN: * Humulin R SSI * Metformin 1 g PO BIDM * HbA1c: 9.9% (12/25/22) ASSESSMENT: 12/28 * Patient is on full liquid diet s/p colonoscopy. Heparin drip continues to infuse (currently 27 mls/hr). * Fasting BSG is at goal. Patient received Lantus 10 units yesterday evening. Will slightly reduce this based on rapid improvement in fasting from 161 to 109 mg/dL after a single dose. * Post prandial BSGs trend up throughout the day, however, I suspect addition of basal insulin will also help to improve post prandials. No change to Novolog for now. 12/27 * NPO for colonoscopy later today, scheduled for 1445. Heparin drip started yesterday evening for DVT in setting of GIB as well - likely to continue but currently being held for colonoscopy * AM fasting BSG elevated but patient currently NPO. Anticipate diet to be re- ordered after colonoscopy. Will schedule dose of Lantus for later today, but at lower than previous * Post-prandial BSG's yesterday all elevated - will tighten CHO ratio in anticipation of diet later today 12/26: * Patient received a total of 51 units of insulin yesterday, 20 units basal + 31 units bolus. BSGs were [phone] mg/dL. * Underwent pericardiocentesis yesterday. Diet changed to full liquid today. Will complete bowel prep today and have colonoscopy tomorrow morning. * Found to have RLE DVT for which a heparin drip has been started. * Fasting BSG was 97 mg/dL this AM. Given full liquid diet and NPO status tomorrow, will hold off on any further basal insulin at this time. No change to Novolog. 12/25: * Patient is a 62 year old male with very poorly controlled T2DM on SSI and metformin * Presented to ED on 12/24/22 from long term for evaluation of acute abdominal pain and possible acute MS * Subsequently found to have Afib w/ RVR - started on diltiazem gtt (mixed in dextrose) * Pharmacy consulted ~lunchtime on 12/25 due to persistent hyperglycemia (>300 mg/dL at lunch) * Prior regimen clearly inadequate with correctional insulin only * Will add basal, carb coverage, and a one-time IV insulin bolus PLAN FOR INPATIENT GLYCEMIC CONTROL: * Hold outpatient oral diabetes medications * Basal insulin * Lantus 8 units @ dinner (hold if NPO of if BSG less than 120 mg/dL) * Bolus insulin * NovoLog per scale ACHS or Q6hrs while NPO * Goal Range: Low 110 mg/dL - High 140 mg/dL * Correction Factor: 20 mg/dL/unit * Nutritional / Prandial insulin per carb ratio of 1 unit per 6 grams CHO consumed
[2022-12-28] MEDS: PANTOprazole 40 MG in SYRINGE 0 ML IV SCH ×2 (09:08→21:25)
[2022-12-28] MEDS: HEPARIN SODIUM/DEXTROSE 25,000 UNITS/500 ML BAG IV SCH (09:12)
[2022-12-28] MEDS: DOCUSATE SODIUM 100 MG CAP PO SCH ×2 (10:17→21:25)
[2022-12-28] MEDS: COLCHICINE 0.6 MG TAB PO SCH ×2 (10:17→21:25)
[2022-12-28] MEDS: POLYETHYLENE (MIRALAX) 17 GM PACK PO SCH ×2 (10:17→21:25)
--- NOTE | 2022-12-28 10:58 | XCELERA ---
[id number]
[2022-12-28] MEDS ORDERED: STAT IV Infusion **Titration per Protocol STA (13:29)
[2022-12-28] MEDS ORDERED: dilTIAZem HCl 5 MG/ML 5 ML VIAL IV STA (13:29)
[2022-12-28] MEDS: dilTIAZem HCL 125 MG in DEXTROSE 5% 100 ML IV SCH (14:32)
[2022-12-28] MEDS ORDERED: LANTUS PER UNIT CHARGE SQ SCH (16:30)
[2022-12-28] MEDS: DIGOXIN 0.125 MG TAB PO SCH (17:06)
--- NOTE | 2022-12-28 21:16 | Cardiology Progress Note ---
Date of Service December 28, 2022 Assessment & Plan (1) Pericardial effusion: Plan: Post pericardiocentesis 12/25 2. Atrial flutter with RVR 3. Severe LVH 4. LOIDA, hyponatremia 5. Right lower extremity below the knee acute DVT 6. Iron deficiency anemia 7. Dysphagia/candidiasis esophagitis+ 8. Type 2 diabetes 9. Urinary tract obstruction 10. Right atrial thrombus (3.4 x 1 cm) Remains hemodynamically stable No significant recurrence of pericardial effusion on repeat echo today. Cultures, cytology unremarkable. Remains in atrial flutter with RVR Persistent pleural effusion on echo. Minimal congestion on exam Improving renal function No plans for electrical cardioversion in the setting of his right atrial thrombus Transition metoprolol to IV diltiazem today for atrial flutter with RVR Continue current digoxin. Check digoxin level some a.m. Okay with heart rates in the 100s to 110sif still unable to rate control will consider addition of amiodarone If blood counts remained stable consider transition heparin to DOAC Continue colchicine From a cardiac standpoint okay with discharge when rate controlled on oral meds He will need cardiology follow-up in 2 to 3 weeks with repeat echo Appreciate hospital medicine care. We will continue to follow. Admission and Anticipated Discharge Date Admission Date: December 24, 2022 Subjective Spoke with patient this afternoon via manager heavy duty phone. He denies any chest pain, shortness of breath or palpitations. Denied dysphagia. Telemetry reviewedatrial flutter with RVR up to 150s. Repeat limited echotrivial pericardial effusion. Right atrial thrombus not well visualized but appears to still be present. Review of Systems Review of Systems: All systems reviewed & are unremarkable except as noted in HPI & below Physical Exam Physical Exam: General: Comfortable HEENT: Sclerae anicteric Lungs: Clear anteriorly, lungs clear Cardiac: Irregular irregular, tachycardic, no murmurs. no erythema around prior drain site Vascular: 2+ radial, bilaterally Abdomen: Soft, nontender Extremities: Well perfused, no edema Neuro: Nonfocal Psych: Alert orient x3, normal affect and mood Results & Data ([facility]) Vital Signs (Past 12 Hours) Vital Signs Temp Pulse Pulse Resp BP Pulse Ox O2 Del Method 12/28/22 19:46 98.2 F 93 H 18 119/83 91 Nasal Cannula 12/28/22 17:06 120 H 12/28/22 16:00 98.2 F 120 H 18 92/58 L 94 Nasal Cannula 12/28/22 14:00 153 H 12/28/22 13:05 97.9 F 152 H 18 91/63 L 91 Nasal Cannula 12/28/22 09:04 97.9 F 140 H 18 95/65 L 90 Nasal Cannula O2 Flow Rate 12/28/22 19:46 2 12/28/22 17:06 12/28/22 16:00 2 12/28/22 14:00 12/28/22 13:05 2 12/28/22 09:04 2 PG Care Time/CCT Total # of Minutes Spent Total Time Spent with Patient: Total time spent is greater than 50% in coordination of care (as documented) at patient's floor/unit and/or counseling patient: Coding Level of Care Code 57361 SUB INP/OBS CARE 3/50MIN Diagnoses Pericardial effusion I31.39
[2022-12-29] MEDS: HEPARIN SODIUM/DEXTROSE 25,000 UNITS/500 ML BAG IV SCH (02:45)
[2022-12-29] MEDS: INSULIN ASPART PER UNIT SC SCH ×4 (08:00→20:58)
[2022-12-29 08:10] LABS: Basophils # (auto) 0.03 K/uL (0-0.2); Basophils % (auto) 0.7 %; Eosinophils # (auto) 0.24 K/uL (0-0.50); Eosinophils % (auto) 5.5 %; Hematocrit (blood only) 28.3 % (42.0-52.0); Hemoglobin 9.4 g/dl (14.0-18.0); Immature Granulocytes # (auto) 0.01 K/uL (0.01-0.20); Immature Granulocytes % (auto) 0.2 %; Lymphocytes # (auto) 1.47 K/uL (1.2-3.4); Lymphocytes % (auto) 33.6 %; Mean Corpuscular Hemoglobin 27.3 pg (25.0-34.0); Mean Corpuscular Hgb Conc 33.2 g/dL (32.0-36.0); Mean Corpuscular Volume 82.3 fL (80.0-100.0); Mean Platelet Volume 9.3 fL (9.4-12.4); Monocytes # (auto) 0.36 K/uL (0.11-0.59); Monocytes % (auto) 8.2 %; Neutrophils # (auto) 2.27 K/uL (1.40-6.50); Neutrophils % (auto) 51.8 %; Platelet Count 312 K/uL (130-400); RDW Standard Deviation 35.7 fL (36.4-46.3); Red Blood Count 3.44 M/uL (4.70-6.10); White Blood Count 4.38 K/ul (4.8-10.8)
[2022-12-29 08:26] LABS: Albumin Globulin Ratio 0.9 (0.9-2); Albumin Level 2.8 gm/dl (3.4-5.0); BUN Creatinine Ratio 16.5 (10-20); Bilirubin,Total 0.3 mg/dl (0.2-1.0); Calcium 8.4 mg/dl (8.5-10.1); Creatinine Clr Calc Pharmacy 60.4 ml/min; Est GFR (African American) 66.4 ml/min; Est GFR (Non-African American) 57.3 ml/min; Magnesium 1.8 mg/dl (1.7-2.4); Potassium 4.2 mmol/L (3.5-5.1); Total Protein 5.8 gm/dl (6.0-8.3)
[2022-12-29] MEDS: COLCHICINE 0.6 MG TAB PO SCH ×2 (08:34→21:06)
[2022-12-29] MEDS: POLYETHYLENE (MIRALAX) 17 GM PACK PO SCH ×2 (08:35→21:06)
[2022-12-29] MEDS: PANTOprazole 40 MG in SYRINGE 0 ML IV SCH (08:35)
[2022-12-29] MEDS: DOCUSATE SODIUM 100 MG CAP PO SCH ×2 (08:35→21:06)
[2022-12-29 08:56] LABS: Partial Thromboplastin Time 54.6 Seconds (21.0-31.0)
[2022-12-29 09:38] LABS: Phosphorus 3.1 mg/dl (2.5-4.9)
[2022-12-29] MEDS ORDERED: FUROSEMIDE 40 MG/4 ML VIAL IV ONE (10:07)
--- NOTE | 2022-12-29 10:07 | Hospitalist Progress Note ---
Date of Service December 29, 2022 Assessment & Plan (1) Cardiac tamponade: Plan: 62 yo male admitted with atrial flutter, however during his hospital stay developed cardiac tamponade with worsening O2 saturation despite increasing O2 supplementation S/P pericardiocentesis for pericardial effusion on 12/25, unknown cause Repeat Echo without evidence of reaccumulation of pericardial effusion Heparin gtt -> transition to Eliquis 5mg BID today Continue colchicine BID, and continue to monitor renal function while on both diltiazem and colchicine Cardiology consulted and appreciate recommendations (2) Atrial flutter with rapid ventricular response: Plan: On 12/29 patient converted to sinus rhythm with HR 60s Transition dilt gtt -> diltiazem CD 120mg PO daily No evidence of bleeding on EGD/colonoscopy [id number], continue Eliquis as above Still with right ventricular thrombus on Echo 12/28 Cardiology consulted and appreciate recommendations (3) Abnormal EKG: Plan: No symptoms or EKG findings to suggest ACS Likely secondary to cardiac pathologies as described above (4) Acute respiratory failure with hypoxia: Plan: Requiring 2-3LNC, baseline not on oxygen Secondary to AFlutter with RVR causing pulmonary edema, will give Lasix 40mg IV x1 today and continue to wean O2 as tolerated CXR in AM (5) Microcytic anemia: Plan: Hgb 10 on admission, stable at 9.4, with mildly microcytic MCV (79-83) Fecal occult blood positive, reports of black stools S/P EGD and colonoscopy -> inflammation but no bleeding on EGD, no evidence of bleeding on colonoscopy Transition pantoprazole to 40mg PO BID (6) Dysphagia: Plan: With solid foods EGD 12/27: showed esophagitis without bleeding, gastritis H. 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, may need insulin adjustment for discharge if patient reports compliance with regimen at correction[facility] facility (8) Hypertension: Plan: Holding lisinopril given hypotension earlier in admission, resume when able (9) Demand ischemia: Plan: In the setting of AFlutter with RVR, cardiac tamponade Troponin 27.5 -> 28.9, no evidence of ACS Care of cardiac concerns detailed above (10) Hyponatremia: Plan: Na 124 -> 133 this admission, improving (11) Acute kidney injury: Plan: Acute kidney injury suspected to be due to contrast-induced nephropathy Creatinine on admission 1.21 -> up to 2.07 following IV contrast load for imaging for problems as described above. Also with very distended bladder per ICU documentation at time of LOIDA. LOIDA has since resolved and creatinine 1.33 Continue to monitor daily especially as patient is on colchicine and diltiazem concurrently (colchicine/dilt combo contraindicated in CrCl <30) (12) Transaminitis: Plan: LFTs normal on admission, increased on 12/28 (no further abdominal pain), with repeats this AM downtrending without intervention Perhaps shock liver due to poor perfusion (from AFlutter RVR) Continue to monitor Plan VTE Prophylaxis - Eliquis BID Admission and Anticipated Discharge Date Admission Date: December 24, 2022 Subjective No overnight events. Received message from nursing staff around 830AM that patient converted to sinus rhythm with HR 60s. Patient himself denies chest pain, palpitations, abdominal pain. He endorses some intermittent SOB but relieved with nasal cannula. No worse today than yesterday. Review of Systems Review of Systems: All systems reviewed & are unremarkable except as noted in Subjective Physical Exam Constitutional: WD/WN, vitals as above Respiratory: normal respiratory effort, basilar crackles otherwise clear to auscultation Cardiovascular: HR regular, non-tachycardic Gastrointestinal (Abdomen): normal bowel sounds, soft, nontender, no hepatosplenomegaly Psychiatric: A+Ox3, euthymic affect Results & Data Results & Data ([facility]) Vital Signs (Past 12 Hours) Vital Signs Temp Pulse Resp BP Pulse Ox O2 Del Method O2 Flow Rate 12/29/22 09:07 36.6 C 63 18 134/76 91 Nasal Cannula 3 12/29/22 04:00 36.6 C 75 111/69 92 Nasal Cannula 3 12/28/22 23:39 36.6 C 81 18 130/73 91 Nasal Cannula 3 PG Care Time/CCT Total # of Minutes Spent Total Time Spent with Patient: Total time spent is greater than 50% in coordination of care (as documented) at patient's floor/unit and/or counseling patient: Coding Level of Care Code 77141 SUB INP/OBS CARE 3/50MIN Diagnoses Cardiac tamponade I31.4 Atrial flutter with rapid ventricular response I48.92 Abnormal EKG R94.31 Acute respiratory failure with hypoxia J96.01 Microcytic anemia D50.9 Dysphagia R13.10 Diabetes E11.9 Hypertension I10 Demand ischemia I24.8 Hyponatremia E87.1 Acute kidney injury N17.9 Transaminitis R74.01
[2022-12-29] MEDS: dilTIAZem HCL 120 MG CAPCR PO SCH (10:41)
[2022-12-29] MEDS: APIXABAN 5 MG TABLET PO SCH ×2 (12:24→21:05)
--- NOTE | 2022-12-29 12:50 | XRay Report ---
XR chest 1V portable HISTORY: 62 years-old Male hypoxia, eval pleural effusion/pulm edema acute hypoxia COMPARISON: 12/26/2022 TECHNIQUE: AP view of the chest FINDINGS: Cardiomegaly with pulmonary vascular congestion and interstitial coarsening, progressed from prior. N o pneumothorax. Increased size of the layering pleural effusions with progressive bibasilar consolida tion. Degenerative changes of the shoulders and spine. IMPRESSION: 1. Cardiomegaly with worsened pulmonary edema. 2. Increased size of the layering pleural effusions with progressive bibasilar opacities. ACT 112: Negative or not required by law. The above report was generated using voice recognition software. It may contain grammatical, syntax o r spelling errors. Electronically signed by: Sanjiv Pitts M.D. 12/29/2022 12:49 PM
--- NOTE | 2022-12-29 13:04 | Cardiology Progress Note ---
Date of Service December 29, 2022 Assessment & Plan (1) Pericardial effusion: Plan: Post pericardiocentesis 12/25 2. Atrial flutter with RVR -- converted to NSR 3. Severe LVH 4. LOIDA, hyponatremia 5. Right lower extremity below the knee acute DVT 6. Iron deficiency anemia 7. Dysphagia/candidiasis esophagitis+ 8. Type 2 diabetes 9. Urinary tract obstruction 10. Right atrial thrombus (3.4 x 1 cm) 11. Pleural effusions/pulmonary edema. Remains hemodynamically stable, now back in sinus rhythm. Pericardial fluid cultures NGTD Pleural effusions on echo, CXR, exam. Persistent 02 requirement. + 6L for admission Stable renal function. -- IV lasix today, goal neg 1 L -- Transition diltiazem drip to PO Cardizem -- can stop digoxin -- Agree with transition to DOAC Continue colchicine On discharge he will need cardiology follow-up in 2 to 3 weeks with repeat echo Appreciate hospital medicine care. We will continue to follow. Admission and Anticipated Discharge Date Admission Date: December 24, 2022 Subjective Patient denies any chest pain, shortness of breath today. Telemetry reviewedconverted to sinus rhythm this morning. Review of Systems Review of Systems: All systems reviewed & are unremarkable except as noted in HPI & below Physical Exam Physical Exam: General: Comfortable HEENT: Sclerae anicteric Lungs: Clear anteriorly, decreased BS at LT base Cardiac: Regular, no murmurs. no erythema around prior drain site Vascular: 2+ radial, bilaterally Abdomen: Soft, nontender Extremities: Well perfused, no edema Neuro: Nonfocal Psych: Alert orient x3, normal affect and mood Results & Data ([facility]) Vital Signs (Past 12 Hours) Vital Signs Temp Pulse Pulse Resp BP Pulse Ox O2 Del Method 12/29/22 08:00 61 12/29/22 09:07 97.9 F 63 18 134/76 91 Nasal Cannula 12/29/22 04:00 97.9 F 75 111/69 92 Nasal Cannula O2 Flow Rate 12/29/22 08:00 12/29/22 09:07 3 12/29/22 04:00 3 PG Care Time/CCT Total # of Minutes Spent Total Time Spent with Patient: Total time spent is greater than 50% in coordination of care (as documented) at patient's floor/unit and/or counseling patient: Coding Level of Care Code 49029 SUB INP/OBS CARE 50MIN Diagnoses Pericardial effusion I31.39
[2022-12-29] MEDS: dilTIAZem HCL 125 MG in DEXTROSE 5% 100 ML IV SCH (14:38)
[2022-12-29] MEDS ORDERED: FLUCONAZOLE 100 MG TAB PO STA (15:06)
[2022-12-29] MEDS ORDERED: LANTUS PER UNIT CHARGE SQ SCH (16:30)
[2022-12-29] MEDS: DIGOXIN 0.125 MG TAB PO SCH (16:51)
[2022-12-29] MEDS: PANTOprazole 40 MG TAB PO SCH (21:06)
[2022-12-29 21:18] LABS: Fluid Appearance CLOUDY; Fluid Basophil % 0 %; Fluid Color ORANGE; Fluid Comment DNR; Fluid Eosinophil % 0 %; Fluid Lymphocytes % 16 %; Fluid Mesothelial % 0 %; Fluid Monocyte/Macrophage % 11 %; Fluid Neutrophil % 73 %; Fluid Total Nucleated Cell Ct 3850 cells/uL; Fluid Type PERICARDIAL FLUID; Pericardial Fld,Total Protein 3.5 g/dL; Pericardial Fluid, LDH 738 U/L
[2022-12-30] MEDS: CARBOHYDRATES FOR HYPOGLYCEMIA PO PRN ×2 (01:30→01:50)
[2022-12-30 06:26] LABS: Basophils # (auto) 0.02 K/uL (0-0.2); Basophils % (auto) 0.4 %; Eosinophils # (auto) 0.19 K/uL (0-0.50); Eosinophils % (auto) 4.1 %; Hematocrit (blood only) 27.1 % (42.0-52.0); Immature Granulocytes # (auto) 0.02 K/uL (0.01-0.20); Immature Granulocytes % (auto) 0.4 %; Lymphocytes # (auto) 1.15 K/uL (1.2-3.4); Lymphocytes % (auto) 24.6 %; Mean Corpuscular Hemoglobin 26.9 pg (25.0-34.0); Mean Corpuscular Hgb Conc 33.2 g/dL (32.0-36.0); Mean Corpuscular Volume 81.1 fL (80.0-100.0); Mean Platelet Volume 9.3 fL (9.4-12.4); Monocytes # (auto) 0.47 K/uL (0.11-0.59); Monocytes % (auto) 10.1 %; Neutrophils # (auto) 2.82 K/uL (1.40-6.50); Neutrophils % (auto) 60.4 %; Platelet Count 288 K/uL (130-400); RDW Standard Deviation 34.9 fL (36.4-46.3); Red Blood Count 3.34 M/uL (4.70-6.10); White Blood Count 4.67 K/ul (4.8-10.8)
[2022-12-30 06:27] LABS: Albumin Level 3.1 gm/dl (3.4-5.0); BUN Creatinine Ratio 18.3 (10-20); Bilirubin,Total 0.3 mg/dl (0.2-1.0); Calcium 8.8 mg/dl (8.5-10.1); Creatinine Clr Calc Pharmacy 77.3 ml/min; Est GFR (African American) 89.4 ml/min; Est GFR (Non-African American) 77.1 ml/min; Total Protein 6.1 gm/dl (6.0-8.3)
--- NOTE | 2022-12-30 07:38 | Hospitalist Progress Note ---
Date of Service December 30, 2022 Assessment & Plan (1) Cardiac tamponade: Plan: 62 yo male admitted with atrial flutter, however during his hospital stay developed cardiac tamponade with worsening O2 saturation despite increasing O2 supplementation S/P pericardiocentesis for pericardial effusion on 12/25, unknown cause Repeat Echo without evidence of reaccumulation of pericardial effusion Heparin gtt -> transition to Eliquis 5mg BID today Continue colchicine BID, and continue to monitor renal function while on both diltiazem and colchicine Cardiology consulted and appreciate recommendations (2) Atrial flutter with rapid ventricular response: Plan: On 12/29 patient converted to sinus rhythm with HR 60s Transition dilt gtt -> diltiazem CD 120mg PO daily No evidence of bleeding on EGD/colonoscopy [id number], continue Eliquis as above Still with right ventricular thrombus on Echo 12/28 Cardiology consulted and appreciate recommendations (3) Abnormal EKG: Plan: No symptoms or EKG findings to suggest ACS Likely secondary to cardiac pathologies as described above (4) Acute respiratory failure with hypoxia: Plan: Requiring 2-3LNC, baseline not on oxygen Secondary to AFlutter with RVR causing pulmonary edema, will give Lasix 40mg IV x1 today and continue to wean O2 as tolerated CXR in AM (5) Microcytic anemia: Plan: Hgb 10 on admission, stable at 9.4, with mildly microcytic MCV (79-83) Fecal occult blood positive, reports of black stools S/P EGD and colonoscopy -> inflammation but no bleeding on EGD, no evidence of bleeding on colonoscopy Transition pantoprazole to 40mg PO BID (6) Dysphagia: Plan: With solid foods EGD 12/27: showed esophagitis without bleeding, gastritis H. pylori negative, gastric biopsy showing chronic gastritis PPI as above (7) Diabetes: Plan: A1c 9.9% on 12/25 Appreciate glycemic management consult Basal/bolus insulin hospital educator while admitted, may need insulin adjustment for discharge if patient reports compliance with regimen at correctional facility (8) Hypertension: Plan: Holding lisinopril given hypotension earlier in admission, resume when able (9) Demand ischemia: Plan: In the setting of AFlutter with RVR, cardiac tamponade Troponin 27.5 -> 28.9, no evidence of ACS Care of cardiac concerns detailed above (10) Hyponatremia: Plan: Na 124 -> 133 this admission, improving (11) Acute kidney injury: Plan: Acute kidney injury suspected to be due to contrast-induced nephropathy Creatinine on admission 1.21 -> up to 2.07 following IV contrast load for imaging for problems as described above. Also with very distended bladder per ICU documentation at time of LOIDA. LOIDA has since resolved and creatinine 1.33 Continue to monitor daily especially as patient is on colchicine and diltiazem concurrently (colchicine/dilt combo contraindicated in CrCl <30) (12) Transaminitis: Plan: LFTs normal on admission, increased on 12/28 (no further abdominal pain), with repeats this AM downtrending without intervention Perhaps shock liver due to poor perfusion (from AFlutter RVR) Continue to monitor Plan VTE Prophylaxis - Eliquis BID Admission and Anticipated Discharge Date Admission Date: December 24, 2022 Results & Data Results & Data ([facility]) Vital Signs (Past 12 Hours) Vital Signs Temp Pulse Pulse Resp BP Pulse Ox O2 Del Method 12/30/22 07:12 62 12/30/22 03:31 36.5 C 65 16 157/86 H 96 Nasal Cannula 12/29/22 23:23 36.6 C 66 16 132/76 93 Nasal Cannula 12/29/22 23:05 Nasal Cannula 12/29/22 19:39 36.8 C 68 16 128/75 94 Nasal Cannula O2 Flow Rate 12/30/22 07:12 12/30/22 03:31 3 12/29/22 23:23 3 12/29/22 23:05 3 12/29/22 19:39 3 PG Care Time/CCT Total # of Minutes Spent Total Time Spent with Patient: Total time spent is greater than 50% in coordination of care (as documented) at patient's floor/unit and/or counseling patient: Coding Diagnoses Cardiac tamponade I31.4 Atrial flutter with rapid ventricular response I48.92 Abnormal EKG R94.31 Acute respiratory failure with hypoxia J96.01 Microcytic anemia D50.9 Dysphagia R13.10 Diabetes E11.9 Hypertension I10 Demand ischemia I24.8 Hyponatremia E87.1 Acute kidney injury N17.9 Transaminitis R74.01
[2022-12-30] MEDS: INSULIN ASPART PER UNIT SC SCH ×2 (08:00→12:00)
[2022-12-30] MEDS: dilTIAZem HCL 120 MG CAPCR PO SCH (08:37)
[2022-12-30] MEDS: APIXABAN 5 MG TABLET PO SCH (08:37)
[2022-12-30] MEDS: PANTOprazole 40 MG TAB PO SCH (08:37)
[2022-12-30] MEDS: DOCUSATE SODIUM 100 MG CAP PO SCH (08:37)
[2022-12-30] MEDS: COLCHICINE 0.6 MG TAB PO SCH (08:37)
[2022-12-30] MEDS: POLYETHYLENE (MIRALAX) 17 GM PACK PO SCH (08:39)
[2022-12-30] MEDS ORDERED: FLUCONAZOLE 100 MG TAB PO SCH (09:00)
--- NOTE | 2022-12-30 12:04 | Pharmacy Report ---
Pharmacy Glycemic Short Note 2 - Date of Service December 30, 2022 - Glycemic Short BSG Results (Last 24 hours): 12/29/22 12/29/22 12/29/22 12:14 17:11 20:42 Glucose POC Glucose 178 H 179 H 188 H 12/30/22 12/30/22 12/30/22 01:24 01:48 02:05 Glucose POC Glucose 45 L* 59 L* 119 H 12/30/22 12/30/22 12/30/22 05:42 08:09 11:57 Glucose 150 H POC Glucose 132 H 162 H OUTPATIENT ANTIDIABETIC REGIMEN: * Humulin R SSI * Metformin 1 g PO BIDM * HbA1c: 9.9% (12/25/22) ASSESSMENT: 12/30/22 * Patient's BSGs yesterday were 410-142-544-188 mg/dL. Patient had hypoglycemic event overnight most likely from too much correctional. * Patient received 47 units of insulin yesterday (8 units of basal and 39 units of bolus). * Due to hypoglycemia overnight will loosen correction factor. * Decrease Lantus slightly since fasting was only 132 mg/dL after hypoglycemic event. 12/28 * Patient is on full liquid diet s/p colonoscopy. Heparin drip continues to infuse (currently 27 mls/hr). * Fasting BSG is at goal. Patient received Lantus 10 units yesterday evening. Will slightly reduce this based on rapid improvement in fasting from 161 to 109 mg/dL after a single dose. * Post prandial BSGs trend up throughout the day, however, I suspect addition of basal insulin will also help to improve post prandials. No change to Novolog for now. 12/27 * NPO for colonoscopy later today, scheduled for 1445. Heparin drip started yesterday evening for DVT in setting of GIB as well - likely to continue but currently being held for colonoscopy * AM fasting BSG elevated but patient currently NPO. Anticipate diet to be re- ordered after colonoscopy. Will schedule dose of Lantus for later today, but at lower than previous * Post-prandial BSG's yesterday all elevated - will tighten CHO ratio in ant icipation of diet later today 12/26: * Patient received a total of 51 units of insulin yesterday, 20 units basal + 31 units bolus. BSGs were [phone] mg/dL. * Underwent pericardiocentesis yesterday. Diet changed to full liquid today. Will complete bowel prep today and have colonoscopy tomorrow morning. * Found to have RLE DVT for which a heparin drip has been started. * Fasting BSG was 97 mg/dL this AM. Given full liquid diet and NPO status tomorrow, will hold off on any further basal insulin at this time. No change to Novolog. 12/25: * Patient is a 62 year old male with very poorly controlled T2DM on SSI and metformin * Presented to ED on 12/24/22 from long-term for evaluation of acute abdominal pain and possible acute MO * Subsequently found to have Afib w/ RVR - started on diltiazem gtt (mixed in dextrose) * Pharmacy consulted ~lunchtime on 12/25 due to persistent hyperglycemia (>300 mg/dL at lunch) * Prior regimen clearly inadequate with correctional insulin only * Will add basal, carb coverage, and a one-time IV insulin bolus PLAN FOR INPATIENT GLYCEMIC CONTROL: * Hold outpatient oral diabetes medications * Basal insulin * Lantus 5 units @ dinner * Bolus insulin * NovoLog per scale ACHS or Q6hrs while NPO * Goal Range: Low 110 mg/dL - High 140 mg/dL * Correction Factor: 30 mg/dL/unit * Nutritional / Prandial insulin per carb ratio of 1 unit per 6 grams CHO consumed
--- NOTE | 2022-12-30 12:28 | Discharge Summary ---
Discharge Summary Date of Service December 30, 2022 Admission HPI Per Admitting Provider Jamie Tinajero is a 62-year-old male who presents to the ER with abdominal pain and possible acute PA. History and exam was performed with the use of an nougat cutter machine via iPad (Christiano). The patient reports to me his abdominal pain is really "colon" pain which he describes as when he has a bowel movement it is around his rectum and he believes this is from straining as he has not had a bowel movement for the last 5 days. He denies any nausea, vomiting, anterior abdominal pain, flank pain, bright red blood in stool, hematemesis. He does report black stool which was heme positive in the emergency room. He does note dysphagia although over an unclear time span with solids at the back of his throat but no problem with liquids. He denies any coughing or choking after eating. He reports having dizziness for many years although this is much worse in the last 3 weeks mainly on standing, but occasionally while lying down. He reports this was much worse today. He believes when he transferred presents his medication was coming from a different pharmacy and he is concerned about this. Outpatient EKG was obtained and concerning for atrial fibrillation/SVT or atrial flutter and meeting acute ST elevation criteria. Heart rate 150 bpm. He was given aspirin 324 mg p.o. at 8:10 AM and 700 mL bolus of normal saline prehospital. In the emergency room EKG confirmed a narrow complex tachycardia at 159 bpm. He was given adenosine 6 mg IV which showed underlying flutter waves and his heart rate immediately went back to around 150 bpm. He was started on a diltiazem drip which caused mild hypotension and he is currently receiving a second 500 mL normal saline bolus when seen. He denies any current dizziness while lying down. No chest pain or shortness of breath. No current abdominal pain. He reports only having symptoms when he would sit or stand. Admission Exam Per Admitting Provider Constitutional: WD/WN, vitals as above Eyes: PERRL, conjunctivae normal, anicteric sclerae EOM intact bilaterally Respiratory: normal respiratory effort, lungs clear to auscultation Cardiovascular: Rate/Rhythm: regular rhythm and + tachycardic Heart Sounds: no murmur Extremities: normal capillary refill; no calf tenderness and no pedal edema Gastrointestinal (Abdomen): normal bowel sounds, soft, nontender, no hepatosplenomegaly Musculoskeletal: no cyanosis or clubbing, extremities motor strength 5/5 Skin: no rashes, warm and dry Neurologic: moves all extremities and awake; not confused Psychiatric: A+Ox3, euthymic affect Genitourinary: no CVA tenderness Principal Dx & Hospital Course #1 = Principal Diagnosis (1) Cardiac tamponade: (2) Atrial flutter with rapid ventricular response: (3) Abnormal EKG: (4) Acute respiratory failure with hypoxia: (5) Microcytic anemia: (6) Dysphagia: (7) Diabetes: (8) Hypertension: (9) Demand ischemia: (10) Hyponatremia: (11) Acute kidney injury: (12) Transaminitis: Plan Cardiac tamponade: 62 yo male admitted with atrial flutter, however during his hospital stay developed cardiac tamponade with worsening O2 saturation despite increasing O2 supplementation S/P pericardiocentesis for pericardial effusion on 12/25, unknown cause Repeat Echo without evidence of reaccumulation of pericardial effusion Heparin gtt -> transition to Eliquis 5mg BID Continue colchicine BID CCardiology follow up in 2-3 weeks with repeat Echo Atrial flutter with rapid ventricular response: On 12/29 patient converted to sinus rhythm with HR 60s Transition dilt gtt -> diltiazem CD 120mg PO daily No evidence of bleeding on EGD/colonoscopy [id number], continue Eliquis as above Still with right ventricular thrombus on Echo 12/28 Abnormal EKG: No symptoms or EKG findings to suggest ACS Likely secondary to cardiac pathologies as described above Acute respiratory failure with hypoxia: In the setting of cardiac issues as described above, now resolved and on room air on discharge Microcytic anemia: Hgb 10 on admission, stable at 9.4, with mildly microcytic MCV (79-83) Fecal occult blood positive, reports of black stools S/P EGD and colonoscopy -> inflammation but no bleeding on EGD, no evidence of bleeding on colonoscopy Continue pantoprazole to 40mg PO BID Esophagitis, dysphagia: With solid foods EGD 12/27: showed esophagitis without bleeding, gastritis H. pylori negative, gastric biopsy showing chronic gastritis, Glory positive PPI as above Fluconazole 400mg first day, then 200mg daily thereafter x2 weeks Follow up GI Diabetes: A1c 9.9% on 12/25 Non-adherence to regimen at facility, given BSGs while admitted did transition to Novolin 70/30 15u BID, and resume metformin Demand ischemia: In the setting of AFlutter with RVR, cardiac tamponade Troponin 27.5 -> 28.9, no evidence of ACS Care of cardiac concerns detailed above Hyponatremia: Na 124 -> 134 on discharge Acute kidney injury: Acute kidney injury suspected to be due to contrast-induced nephropathy Creatinine on admission 1.21 -> up to 2.07 following IV contrast load for imaging for problems as described above. Also with very distended bladder per ICU documentation at time of LOIDA. LOIDA has since resolved and creatinine 1.33 Continue to monitor daily especially as patient is on colchicine and diltiazem concurrently (colchicine/dilt combo contraindicated in CrCl <30) Transaminitis: LFTs normal on admission, increased on 12/28 (no further abdominal pain), with repeats downtrending without intervention Follow up with GI Discharge Exam Constitutional WD/WN, vitals as above Respiratory normal respiratory effort, lungs clear to auscultation Cardiovascular RRR, no murmur, no edema Gastrointestinal (Abdomen) normal bowel sounds, soft, nontender, no hepatosplenomegaly Psychiatric A+Ox3, euthymic affect Updated Medication List Medication Instructions Recorded Confirmed Type apixaban 5 mg tablet (Eliquis) 5 mg PO BID 30 days #60 tabs 12/30/22 Rx colchicine 0.6 mg tablet (Colcrys) 0.6 mg PO BID 30 days #60 tabs 12/30/22 Rx diltiazem HCl 120 mg 120 mg PO QAM #30 caps 12/30/22 Rx capsule,extended release 24 hr (Cardizem CD) fluconazole 100 mg tablet 200 mg PO QAM 12 days #24 tabs 12/30/22 Rx insulin human U-100 NPH-regulr 15 unit (0.15 mL) subcut BID #10 mL 12/30/22 Rx 70-30 mix 100 unit/mL subcutaneous susp (Novolin 70/30 U-100 Insulin) metformin 1,000 mg tablet 1,000 mg PO BID 30 days #60 tabs 12/30/22 Rx pantoprazole 40 mg tablet,delayed 40 mg PO BID 30 days #60 tabs 12/30/22 Rx release polyethylene glycol 3350 17 gram 17 g PO DAILY PRN constipation #30 12/30/22 Rx oral powder packet (Miralax) ea Hospital Stay Data Consultations 12/24/22 10:24 Consult Cardiology Stat 12/24/22 10:33 ED Decision to Admit Stat 12/24/22 11:12 HIM [Consult Health Information Management] Stat 12/25/22 08:17 Consult Gastroenterology Routine 12/25/22 17:21 Consult Programming Intern Routine Procedures Performed Operation Date: 12/25/22 16:15 Actual Procedures p Pericardiocentesis - Kirby Lemus MD s Cineradiography w/Routine Exam - Kirby Lemus MD s Ultrasound Vascular Access - Kirby Lemus MD Operation Date: 12/27/22 16:30 Actual Procedures p EGD Biopsy Cytology - MD tati Watts Colonoscopy - Juan Francisco Swanson MD Diagnostic Imagining Performed 12/24/22 18:46 CT abd pelvis IV con only Routine CT chest diagnostic w con Routine 12/25/22 16:04 CL Cath Imgs for PACS use only Stat 12/26/22 US venous doppler LE BI Routine Discharge Instructions Given to Patient (Per Discharging Provider) Jamie was admitted and evaluated for irregular heart rhythm, pericardial effusion, trouble swallowing, and high sugars. Irregular heart rhythm: Atrial flutter in the hospital, improved with IV medications which were switched to oral. Heart rate 70s on discharge. See medication list below which is up to date for discharge medications. Pericardial effusion: had pericardiocentesis to drain the fluid, without recurrence on Echocardiogram. Repeat Echocardiogram in 2-3 weeks with Cardiology follow up (Dr. Lemus with [facility] if possible, other [facility] [employer] Analyst ok if no openings). Did not need oxygen on discharge when walking around room and to bathroom, but as he returns to normal activity he may require 2L at times if he becomes hypoxic; leave to discretion of facility providers. Will be on colchicine for three months. Eliquis will be at least 3 months but may be longer based on Cardiology recommendations. Diltiazem will likely be indefinite. Trouble swallowing: EGD showed esophagitis, inflammation of the esophagus. 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 He will be on oral antifungal for two weeks for this, see medications below. He will also be on PPI Protonix, 40 milligrams twice daily until seen by Gastroenterology. Should have follow up in about 2 months with GI doctor. High BSG: A1c 9.9% in hospital (goal <7%). Discussed insulin compliance with patient, as well as regular exercise as able. Diabetic diet at facility. Had some lows overnight and in the early mornings, recommend transition to Novolin 70/30 15 units twice daily, and continue metformin. Can adjust insulin as necessary if BSGs high/low. Constipation: Can have Miralax or other stool softeners as needed for constipation. Total Time Total Time Spent Total Time Spent (In Minutes): 50 min Coding Level of Care Code HOSP INP/OBS DISCH >30 MIN Diagnoses Cardiac tamponade I31.4 Atrial flutter with rapid ventricular response I48.92 Abnormal EKG R94.31 Acute respiratory failure with hypoxia J96.01 Microcytic anemia D50.9 Dysphagia R13.10 Diabetes E11.9 Hypertension I10 Demand ischemia I24.8 Hyponatremia E87.1 Acute kidney injury N17.9 Transaminitis R74.01
[2022-12-30] MEDS ORDERED: LANTUS PER UNIT CHARGE SQ SCH (16:30)
== END 2022-12-30 14:24 | DRG 308 ==
LOC: ED 09:04 → SUATTDRO 10:38 → 2S 10:38 → 1E 12-25 17:02 → 4W 12-27 16:21